=== PATIENT | male | born 1935 ===

== ENCOUNTER 2018-02-13 13:36 | Inpatient (IN) | payer MEDICARE, OTHER ==
[2018-02-13 13:37] VITALS: PULSE 68; BMI 28.8
--- NOTE | 2018-02-13 13:55 | C.PDOC ---
History Of Present Illness 83 M with PMHx of CAD, chronic Afib, renal failure in dialysis presents to the ED [facility] from [facility] complaining of dizziness and lightheadedness episode while he was in dialysis prior to arrival. As per patient, his vision became black and then white but it is resolved now. He denies any physical complaints in the ED. PMD: Dr. Rock Time Seen by Provider: 02/13/18 13:42 Chief Complaint (Nursing): Dizziness/Lightheaded History Per: Patient History/Exam Limitations: no limitations Onset/Duration Of Symptoms: Hrs Current Symptoms Are (Timing): Still Present Past Medical History Vital Signs: Last Vital Signs Temp 97.4 F L 02/13/18 13:41 Pulse 78 02/13/18 13:41 Resp 15 02/13/18 13:41 BP 88/41 L 02/13/18 13:41 Pulse Ox 94 L 02/13/18 13:41 - Medical History PMH: Anxiety, Arthritis, Bronchitis, CAD, Cardia Arrhythmia (AFIB), CHF, Diabetes, Gall Bladder Disease (CHOLECYSTECTOMY), HTN, Hypercholesterolemia, Peripheral Edema (BLE), Pneumonia, Chronic Kidney Disease Denies: Depression Surgical History: CABG, Cholecystectomy (GB Sx: ? removal), Pacemaker (11/30/14) - [facility] Procedures (01/13/18) BED MOBILITY TREATMENT (06/03/16) DRESSING TECHNIQUES TREATMENT USING ASSIST EQUIPMENT (06/03/16) EXERCISE TREATMENT OF MUSCULOSK LOW BACK/LE USING OTH EQUIP (06/03/16) FLUOROSCOPY OF LEFT HEART USING OTHER CONTRAST (05/29/16) FLUOROSCOPY OF MULTIPLE CORONARY ARTERIES USING OTH CONTRAST (05/29/16) GAIT TRAINING/AMBULAT TREATMENT USING ASSIST EQUIPMENT (10/15/17) GROOMING/PERSONAL HYGIENE TREATMENT USING ASSIST EQUIPMENT (06/03/16) HOME MANAGEMENT TREATMENT USING ASSIST EQUIPMENT (04/29/15) INCISION OF PENIS (07/19/14) INSERT INFUSION DEV IN R INT JUGULAR VEIN, PERC (01/13/18) INTRODUCE OF OTH THERAP SUBST INTO RESP TRACT, VIA OPENING (04/26/15) INTRODUCE OF OXAZOLIDINONES INTO PERIPH VEIN, PERC APPROACH (04/26/15) MEASURE OF CARDIAC SAMPL & PRESSURE, L HEART, PERC APPROACH (05/29/16) OCCUPATIONAL THERAPY (07/24/14) PHYSICAL THERAPY NEC (07/24/14) SERUM TRANSFUSION NEC (07/11/12) THERAPEUTIC EXERCISE TREATMENT OF MUSCULOSK WHOLE (10/15/17) TRANSFER TRAINING TREATMENT (06/03/16) ULTRASONOGRAPHY OF RIGHT JUGULAR VEINS, GUIDANCE (01/13/18) Family History: States: No Known Family Hx - Social History Hx Tobacco Use: Yes (QUIT) Hx Alcohol Use: No Hx Substance Use: No - Immunization History Hx Tetanus Toxoid Vaccination: No Hx Influenza Vaccination: No Hx Pneumococcal Vaccination: No Review Of Systems Except As Marked, All Systems Reviewed And Found Negative. Cardiovascular: Positive for: Light Headedness. Negative for: Chest Pain Gastrointestinal: Negative for: Abdominal Pain Neurological: Positive for: Dizziness Physical Exam - Physical Exam Additional Physical Exam Comments: Gen: VS reviewed, alert, well developed, well nourished, nontoxic, mild distress Eye: EOMI, PERRL Neck: no JVD, supple, no adenopathy CV: regular rate, irregularly irregular rhythm, no rubs,no murmur, S1, S2. Pulm: no distress, clear to auscultation, no wheeze, no rhonchi, breath sounds equal, no rales. catheter noted to the right chest wall Abd: soft, nontender, no guarding, no rebound, no rigidity Ext: Pedal edema to bilateral extremities Skin: good color, no rash, no cyanosis Psych: responds appropriately to questions, normal affect Neuro: oriented x3, CN2-12 intact grossly, motor intact, sensation intact ED Course And Treatment - Laboratory Results Result Diagrams: 02/13/18 14:07 02/14/18 06:52 ECG: Interpreted By Me (atrial fibrillation at 78 bpm, nonspecific intraventricular conduction delay, artifact, pvc's, nonspecific t wave abn) O2 Sat by Pulse Oximetry: 94 (RA) Pulse Ox Interpretation: Abnormal - Other Rad CXR X-Ray: Viewed By Me, Read By Radiologist Interpretation: IMPRESSION: Severe cardiomegaly, mild pulmonary venous congestion and small left pleural effusion. No evidence for pneumonia. Medical Decision Making Medical Decision Makinp: received call from patient's site supervisor, could not make out name, states that the patient got full tx of HD, sent patient to the ED for severe hyp otension, blood pressure typically in the 90-100 SBP, was given dose of 1g vanco and 80mg gentamicin prior to arrival. the number to the site supervisor is [phone]. Dr. Terence Mcnamara 334p: admit accepted by dr. matta, admit to [facility], patient to be admitted for transient hypotension, rule out sepsis/bacteremia Disposition Discussed With : Rebecca Matta - Disposition Disposition: HOSPITALIZED Disposition Time: 15:38 Condition: STABLE - Clinical Impression Clinical Impression: Hypotension - Scribe Statement The provider has reviewed the documentation as recorded by the Scribe Anahi Esteban All medical record entries made by the Scribe were at my direction and personally dictated by me. I have reviewed the chart and agree that the record accurately reflects my personal performance of the history, physical exam, medical decision making, and the department course for this patient. I have also personally directed, reviewed, and agree with the discharge instructions and disposition.
[2018-02-13] MEDS ORDERED: Sodium Chloride 0.9% 500 ML IV ONE ×2 (14:02→14:22)
[2018-02-13 14:11] LABS: EOS # 0.1 K/uL (0.0-0.7); HEMOGLOBIN 9.1 g/dL (12.0-18.0); LYMPH # 0.4 K/uL (1.0-4.3); MEAN CORPUSCULAR HEMOGLOBIN 36.6 pg (27.0-31.0); MEAN PLATELET VOLUME 8.1 fL (7.2-11.7); MONO # 0.8 K/uL (0.0-0.8); NEUT # 4.4 K/uL (1.8-7.0); RBC 2.47 Mil/uL (4.40-5.90)
[2018-02-13 14:13] LABS: VENOUS BLOOD GAS BASE EXCESS 2.7 mmol/L (0.0-2.0); VENOUS BLOOD GAS PCO2 50 mmHg (40-60); VENOUS BLOOD GAS PO2 21 mm/Hg (30-55); VENOUS BLOOD PH 7.37 (7.32-7.43)
[2018-02-13 14:14] LABS: BASO % 0.7 % (0.0-2.0); EOS % 2.3 % (0.0-4.0); LYMPH % 6.2 % (20.0-40.0); MEAN CELL VOLUME 106.7 fL (80.0-94.0); MEAN CORPUSCULAR HGB CONC 34.3 g/dL (33.0-37.0); MONO % 14.7 % (0.0-10.0); NEUT % 76.1 % (50.0-75.0); NRBC % 0.1 % (0.0-2.0); RED CELL DISTRIBUTION WIDTH 18.6 % (11.5-14.5); WHITE BLOOD COUNT 5.7 K/uL (4.8-10.8)
[2018-02-13 14:19] LABS: INR 2.2; PROTHROMBIN TIME 23.8 SECONDS (9.7-12.2)
[2018-02-13 14:23] LABS: ALB/GLOB RATIO 0.9 (1.0-2.1); ALBUMIN 2.8 g/dL (3.5-5.0); CALCIUM 7.7 mg/dl (8.6-10.4); PLATELET COUNT 25 K/uL (130-400)
[2018-02-13 14:34] LABS: TROPONIN I 0.055 ng/mL (0.00-0.120)
--- NOTE | 2018-02-13 14:36 | RAD ---
Date of service: 02/13/2018 HISTORY: pnuemonia COMPARISON: No prior. FINDINGS: Right-sided dialysis catheter terminates in the right atrium. LUNGS: The lungs are well inflated and clear. There is mild pulmonary venous congestion. PLEURA: Small left pleural effusion. No right pleural effusion or pneumothorax. CARDIOVASCULAR: Severe cardiomegaly and prominent central vasculature. There is a left-sided unipolar permanent pacing device. There are aortic atherosclerotic calcifications present. OSSEOUS STRUCTURES: Within normal limits for the patient's age. VISUALIZED UPPER ABDOMEN: Normal. OTHER FINDINGS: None. IMPRESSION: Severe cardiomegaly, mild pulmonary venous congestion and small left pleural effusion. No evidence for pneumonia.
[2018-02-13 15:15] LABS: BASOPHIL 1 % (0-2); EOSINOPHIL 1 % (0-4); LYMPHOCYTE 6 % (20-40); MONOCYTE 12 % (0-10); NEUTROPHIL 80 % (50-75); TOTAL CELLS COUNTED 100
[2018-02-13 15:16] LABS: ANISOCYTOSIS SLIGHT; PLATELET ESTIMATE MARKEDLY DECREASED (NORMAL); POIKILOCYTOSIS SLIGHT
[2018-02-13 15:17] LABS: BURR CELLS SLIGHT; HYPOCHROMIC SLIGHT; OVALOCYTES SLIGHT
[2018-02-13 15:20] LABS: LARGE PLATELETS PRESENT
[2018-02-13] MEDS: (Novolog) Insulin Aspart, Recombinant 100 u/ml 10 ml vial SC SCH (21:48)
[2018-02-13 23:00] LABS: SQUAMOUS EPITHIAL < 1 /hpf (0-5); URINE BACTERIA RARE (<OCC); URINE BILIRUBIN NEGATIVE (NEGATIVE); URINE BLOOD NEGATIVE (NEGATIVE); URINE CLARITY Hazy (Clear); URINE COLOR Amber (YELLOW); URINE GLUCOSE (UA) NORMAL (Normal); URINE LEUKOCYTE ESTERASE NEG Leu/uL (Negative); URINE PROTEIN NEGATIVE (NEGATIVE)
[2018-02-14 07:08] LABS: INR 2.6; PROTHROMBIN TIME 28.6 SECONDS (9.7-12.2)
[2018-02-14 07:34] LABS: ALB/GLOB RATIO 0.9 (1.0-2.1); ALBUMIN 2.8 g/dL (3.5-5.0); CALCIUM 7.9 mg/dl (8.6-10.4)
--- NOTE | 2018-02-14 11:12 | CARD ---
APPROVED REPORT Date of service: 02/13/2018 EKG Measurement Heart [id number] <Conclusion> Atrial fibrillation with a competing junctional pacemaker with premature ventricular or aberrantly conducted complexes Nonspecific intraventricular conduction delay Nonspecific ST and T wave abnormality Abnormal ECG
[2018-02-14] MEDS: (Novolog) Insulin Aspart, Recombinant 100 u/ml 10 ml vial SC SCH ×4 (11:36→22:00)
--- NOTE | 2018-02-14 12:41 | CARD ---
APPROVED REPORT Date of service: 02/14/2018 EXAM: Two-dimensional and M-mode echocardiogram with Doppler and color Doppler. Other Information Quality : Rhythm : Atrial Fibrillation INDICATION Dizziness and Vertigo Dyspnea Chest Pain Congestive Heart Failure Surgery/Intervention ICD/Pacemaker: RISK FACTORS Hypertension Hyperlipidemia Diabetes 2D DIMENSIONS IVSd1.1 (0.7-1.1cm)Aortic Root (2D)2.5 (2.0-3.7cm) LVDd5.6 (3.9-5.9cm)PWd1.1 (0.7-1.1cm) LA [id number] (18-58mL)LVDs4.8 (2.5-4.0cm) FS (%) 14.4 %LVEF (%)36.0 (>50%) IVC0.00 cm M-Mode DIMENSIONS RVDd1.64 (2.1-3.2cm)Left Atrium (MM)6.68 (2.5-4.0cm) IVSd0.66 (0.7-1.1cm)Aortic Root2.38 (2.2-3.7cm) LVDd6.60 (4.0-5.6cm)Aortic Cusp Exc.1.76 (1.5-2.0cm) PWd0.82 (0.7-1.1cm)FS (%) 17 % LVDs5.47 (2.0-3.8cm)LVEF (%)35 (>50%) Aortic Valve AI P 1/2 [id number] Mitral Valve MV E Bvcipwni864.3cm/sMV A Eyxxpxkk81.0cm/sE/A ratio2.8 MPJO011.76 cm/s TDI Lateral E' Peak V16.10cm/sMedial E' Peak V11.51cm/sE/Lateral E'7.0 E/Medial E'9.8 Tricuspid Valve TR Peak Ezhwzkhl004si/sTR Peak Gr.[id number] LEFT VENTRICLE The Left Ventricle is severely dilated. There is normal left ventricular wall thickness. The Ejection Fraction is 35-40%. There is global hypokinesis of the left ventricle. Transmitral Doppler flow pattern is Grade III-reversible restrictive diastolic dysfunction. markedly increased la volume index, RIGHT VENTRICLE The right ventricle is normal size. The right ventricular systolic function is normal. ATRIA The left atrium is severely dilated. The right atrium is moderately dilated. AORTIC VALVE The aortic valve is mildly sclerotic. The aortic valve is trileaflet. There is mild aortic regurgitation. MITRAL VALVE The mitral valve is thickened but opens well. Mitral regurgitation is moderate. TRICUSPID VALVE The tricuspid valve is normal in structure. There is moderate to severe tricuspid regurgitation. Right ventricular systolic pressure is estimated at 60 mmHg. There is moderate-severe pulmonary hypertension. PULMONIC VALVE The pulmonary valve is normal in structure. There is mild pulmonic valvular regurgitation. GREAT VESSELS The aortic root is normal size. The aortic root displays mild sclerocalcific changes of the aortic root. Dilated IVC with poor inspiration collapse is consistent with elevated right atrial pressure. PERICARDIAL EFFUSION There is no pericardial effusion. <Conclusion> The Left Ventricle is severely dilated. The Ejection Fraction is 35-40%. There is global hypokinesis of the left ventricle. Transmitral Doppler flow pattern is Grade III-reversible restrictive diastolic dysfunction. markedly increased la volume index, The left atrium is severely dilated. The right atrium is moderately dilated. There is mild aortic regurgitation. Mitral regurgitation is moderate. There is moderate to severe tricuspid regurgitation. Right ventricular systolic pressure is estimated at 60 mmHg. There is moderate-severe pulmonary hypertension. Dilated IVC with poor inspiration collapse is consistent with elevated right atrial pressure. There is no pericardial effusion.
--- NOTE | 2018-02-14 17:35 | CP.PCM.HP ---
History of Present Illness - History of Present Illness History of Present Illness: pt admited for feeling weeke light headed get worse if stand had dialysis and got low bp Present on Admission - Present on Admission Any Indicators Present on Admission: No Review of Systems - Review of Systems Systems not reviewed;Unavailable: Unstable Vital Signs - Constitutional Constitutional: Fatigue, Malaise - EENT Eyes: As Per HPI Ears: As Per HPI Nose/Mouth/Throat: As Per HPI - Cardiovascular Cardiovascular: Other (neare syncope) Additional comments: neare syncope - Respiratory Respiratory: As Per HPI - Gastrointestinal Gastrointestinal: As Per HPI - Genitourinary Genitourinary: As Per HPI Additional comments: esrf on dialysis - Musculoskeletal Musculoskeletal: As Per HPI - Integumentary Integumentary: As Per HPI - Neurological Neurological: As Per HPI - Psychiatric Psychiatric: As Per HPI - Endocrine Endocrine: As Per HPI - Hematologic/Lymphatic Hematologic: As Per HPI Past Patient History - Infectious Disease Hx of Infectious Diseases: None - Tetanus Immunizations Tetanus Immunization: Unknown - Past Medical History & Family History Past Medical History?: Yes - Past Social History Smoking Status: Never Smoked - CARDIAC Hx Cardiac Disorders: Yes (CAD, A-fib,) Hx Congestive Heart Failure: Yes Hx Hypercholesterolemia: Yes Hx Hypertension: Yes - PULMONARY Hx Bronchitis: Yes Hx Pneumonia: Yes - NEUROLOGICAL Hx Neurological Disorder: (DENIES HISTORY) - HEENT Hx HEENT Problems: Yes Hx Cataracts: Yes (Left) Hx Glaucoma: Yes (Right) - RENAL Hx Chronic Kidney Disease: Yes - ENDOCRINE/METABOLIC Hx Diabetes Mellitus Type 2: Yes - HEMATOLOGICAL/ONCOLOGICAL Hx Blood Disorders: Yes - INTEGUMENTARY Hx Dermatological Problems: (DENIES HISTORY) - MUSCULOSKELETAL/RHEUMATOLOGICAL Hx Arthritis: Yes - GASTROINTESTINAL Hx Gall Bladder Disease: Yes (CHOLECYSTECTOMY) - GENITOURINARY/GYNECOLOGICAL Hx Genitourinary Disorders: No - PSYCHIATRIC Hx Anxiety: Yes Hx Depression: No Hx Substance Use: No - SURGICAL HISTORY Hx Cholecystectomy: Yes (GB Sx: ? removal) Hx Coronary Artery Bypass Graft: Yes - ANESTHESIA Hx Anesthesia: Yes Hx Anesthesia Reactions: Yes Hx Malignant Hyperthermia: No Meds Allergies/Adverse Reactions: Allergies Allergy/AdvReac Type Severity Reaction Status Date / Time aspirin Allergy RASH Verified 10/24/17 06:17 Latex, Natural Rubber Allergy RASH Verified 10/24/17 06:17 Penicillins Allergy ANAPHYLAXIS Verified 08/29/18 06:17 Physical Exam - Constitutional Appears: Non-toxic, In Acute Distress - Head Exam Head Exam: ATRAUMATIC - Eye Exam Eye Exam: Normal appearance Pupil Exam: NORMAL ACCOMODATION - ENT Exam ENT Exam: Normal Exam - Neck Exam Neck exam: Positive for: Full Rom - Respiratory Exam Respiratory Exam: Decreased Breath Sounds - Cardiovascular Exam Cardiovascular Exam: REGULAR RHYTHM - GI/Abdominal Exam GI & Abdominal Exam: Normal Bowel Sounds - Rectal Exam Rectal Exam: Deferred - Exam Exam: NORMAL INSPECTION - Extremities Exam Extremities exam: Positive for: normal inspection - Back Exam Back exam: NORMAL INSPECTION - Neurological Exam Neurological exam: Oriented x3 - Psychiatric Exam Psychiatric exam: Normal Affect - Skin Skin Exam: Normal Color Results - Vital Signs Recent Vital Signs: Last Vital Signs Temp 97.6 F 02/14/18 15:00 Pulse 70 02/14/18 15:00 Resp 20 02/14/18 15:00 BP 90/45 L 02/14/18 15:00 Pulse Ox 100 02/14/18 15:00 - Labs Result Diagrams: 02/13/18 14:07 02/14/18 06:52 Labs: Laboratory Results - last 24 hr 02/13/18 02/13/18 02/13/18 18:04 21:26 21:44 PT INR Sodium Potassium Chloride Carbon Dioxide Anion Gap BUN Creatinine Est GFR ( Amer) Est GFR (Non-Af Amer) POC Glucose (mg/dL) 186 H 112 H Random Glucose Calcium Phosphorus Magnesium Total Bilirubin AST ALT Alkaline Phosphatase NT-Pro-B Natriuret Pep Total Protein Albumin Globulin Albumin/Globulin Ratio Urine Color [place] Urine Clarity Hazy Urine pH 5.0 Ur Specific [place] 1.013 Urine Protein Negative Urine Glucose (UA) Normal Urine Ketones Negative Urine Blood Negative Urine Nitrate Negative Urine Bilirubin Negative Urine Urobilinogen 2.0 Ur Leukocyte Esterase Neg Urine WBC (Auto) 3 Urine RBC (Auto) 4 H Ur Squamous Epith Cells < 1 Urine Bacteria Rare Stool Occult Blood 02/13/18 02/14/18 02/14/18 22:07 06:52 06:52 PT 28.6 H INR 2.6 Sodium 131 L Potassium 4.0 Chloride 95 L Carbon Dioxide 27 Anion Gap 13 BUN 79 H Creatinine 2.8 H Est GFR ( Amer) 26 Est GFR (Non-Af Amer) 22 POC Glucose (mg/dL) Random Glucose 82 Calcium 7.9 L Phosphorus 5.1 H Magnesium 1.8 Total Bilirubin 1.2 AST 46 ALT 35 Alkaline Phosphatase 190 H NT-Pro-B Natriuret Pep 2950 H Total Protein 6.0 L Albumin 2.8 L Globulin 3.2 Albumin/Globulin Ratio 0.9 L Urine Color Urine Clarity Urine pH Ur Specific [place] Urine Protein Urine Glucose (UA) Urine Ketones Urine Blood Urine Nitrate Urine Bilirubin Urine Urobilinogen Ur Leukocyte Esterase Urine WBC (Auto) Urine RBC (Auto) Ur Squamous Epith Cells Urine Bacteria Stool Occult Blood Negative 02/14/18 02/14/18 12:04 17:00 PT INR Sodium Potassium Chloride Carbon Dioxide Anion Gap BUN Creatinine Est GFR ( Amer) Est GFR (Non-Af Amer) POC Glucose (mg/dL) 83 106 Random Glucose Calcium Phosphorus Magnesium Total Bilirubin AST ALT Alkaline Phosphatase NT-Pro-B Natriuret Pep Total Protein Albumin Globulin Albumin/Globulin Ratio Urine Color Urine Clarity Urine pH Ur Specific [place] Urine Protein Urine Glucose (UA) Urine Ketones Urine Blood Urine Nitrate Urine Bilirubin Urine Urobilinogen Ur Leukocyte Esterase Urine WBC (Auto) Urine RBC (Auto) Ur Squamous Epith Cells Urine Bacteria Stool Occult Blood Assessment & Plan - Assessment and Plan (Free Text) Assessment: gabi neare syncope hypotension esrf Plan: as ordered - Date & Time Date: 02/14/18 Time: 17:37
[2018-02-14] MEDS ORDERED: Potassium Chloride 20 mEq ER Tab PO ONE (18:00)
--- NOTE | 2018-02-14 18:47 | CP.PCM.CON ---
History of Present Illness - History of Present Illness History of Present Illness: 83 yo M w/ pmh of htn, dm, afib on coumadin, CHF w/ biventricular failure (per previous echo, s/p AICD), and BRANDI on CKD IIIB/IV, sent by our outpatient service to ED for severe hypotension on HD yesterday, nephrology being consulted for renal insufficiency; Patient is known to us since last month when he presented to [facility] with acute severely decompensated systolic CHF and acute renal failure; patient was aggressively diuresed before being initiated on HD and discharged to rehab facility while being continued on outpatient HD; Patient has had relatively stable weights, with target weight being 81 kg; SBP has been in 90's to low 100's and tolerating 1-1.5L fluid removal on HD; however, yesterday, patient started HD with SBP > 100 but quickly dropped to 60's and without significant improvement despite getting ~1L IVF bolus; patient also got blood cultures on HD and empirically given 1g vanco and 80 mg genta micin; patient did report having some diarrhea in the previous 1-2 days and had some feeling of dizziness/pre-syncope before HD yesterday; he otherwise had been eating well, denies any vomiting; he was treated for UTI last week; Review of Systems - Constitutional Constitutional: absent: Anorexia, Chills, Fever - EENT Eyes: Change in Vision Nose/Mouth/Throat: absent: Dysphagia - Cardiovascular Cardiovascular: Lightheadedness. absent: Dyspnea - Respiratory Respiratory: absent: Dyspnea - Gastrointestinal Gastrointestinal: As Per HPI - Genitourinary Genitourinary: absent: Dysuria - Musculoskeletal Musculoskeletal: absent: Arthralgias, Back Pain - Neurological Neurological: As Per HPI - Psychiatric Additional comments: slow to respond - Hematologic/Lymphatic Hematologic: Easy Bruising Past Patient History - Infectious Disease Hx of Infectious Diseases: None - Tetanus Immunizations Tetanus Immunization: Unknown - Past Medical History & Family History Past Medical History?: Yes - Past Social History Smoking Status: Never Smoked - CARDIAC Hx Cardiac Disorders: Yes (CAD, A-fib,) Hx Congestive Heart Failure: Yes Hx Hypercholesterolemia: Yes Hx Hypertension: Yes - PULMONARY Hx Bronchitis: Yes Hx Pneumonia: Yes - NEUROLOGICAL Hx Neurological Disorder: (DENIES HISTORY) - HEENT Hx HEENT Problems: Yes Hx Cataracts: Yes (Left) Hx Glaucoma: Yes (Right) - RENAL Hx Chronic Kidney Disease: Yes - ENDOCRINE/METABOLIC Hx Diabetes Mellitus Type 2: Yes - HEMATOLOGICAL/ONCOLOGICAL Hx Blood Disorders: Yes - INTEGUMENTARY Hx Dermatological Problems: (DENIES HISTORY) - MUSCULOSKELETAL/RHEUMATOLOGICAL Hx Arthritis: Yes - GASTROINTESTINAL Hx Gall Bladder Disease: Yes (CHOLECYSTECTOMY) - GENITOURINARY/GYNECOLOGICAL Hx Genitourinary Disorders: No - PSYCHIATRIC Hx Anxiety: Yes Hx Depression: No Hx Substance Use: No - SURGICAL HISTORY Hx Cholecystectomy: Yes (GB Sx: ? removal) Hx Coronary Artery Bypass Graft: Yes - ANESTHESIA Hx Anesthesia: Yes Hx Anesthesia Reactions: Yes Hx Malignant Hyperthermia: No Meds Allergies/Adverse Reactions: Allergies Allergy/AdvReac Type Severity Reaction Status Date / Time aspirin Allergy RASH Verified 10/24/17 06:17 Latex, Natural Rubber Allergy RASH Verified 10/24/17 06:17 Penicillins Allergy ANAPHYLAXIS Verified 10/24/17 06:17 - Medications Medications: Current Medications Acetaminophen (Tylenol 325mg Tab) 650 mg PO Q6 PRN PRN Reason: Fever >100.4 F and Pain (4-7) Bumetanide (Bumex) 2 mg PO DAILY [facility] Insulin Aspart (Novolog) 0 unit SC [facility]; Protocol Last Admin: 02/14/18 17:02 Dose: Not Given Lactulose (Enulose) 20 gm PO DAILY [facility] Last Admin: 02/14/18 12:57 Dose: 20 gm Moxifloxacin HCl (Avelox) 400 mg PO DAILY [facility]; Protocol Last Admin: 02/14/18 12:58 Dose: 400 mg Risperidone (Risperdal Tab) 0.25 mg PO [facility] Last Admin: 02/13/18 21:45 Dose: 0.25 mg Physical Exam - Constitutional Appears: Non-toxic, No Acute Distress - Eye Exam Eye Exam: Normal appearance. absent: Scleral icterus - ENT Exam ENT Exam: Mucous Membranes Moist - Respiratory Exam Respiratory Exam: Clear to Auscultation Bilateral. absent: Respiratory Distress - Cardiovascular Exam Cardiovascular Exam: Irregular Rhythm. absent: Gallop, Rubs - GI/Abdominal Exam GI & Abdominal Exam: Soft. absent: Distended, Tenderness - Exam Exam: absent: Bladder Distension Additional comments: no suprapubic tenderness - Neurological Exam Neurological exam: Alert Additional comments: no overt tremor - Psychiatric Exam Psychiatric exam: Normal Affect, Normal Mood - Skin Skin Exam: Normal Color, Warm Results - Vital Signs Recent Vital Signs: Last Vital Signs Temp 97.6 F 02/14/18 15:00 Pulse 70 02/14/18 15:00 Resp 20 02/14/18 15:00 BP 90/45 L 02/14/18 15:00 Pulse Ox 100 02/14/18 15:00 - Labs Result Diagrams: 02/13/18 14:07 02/14/18 06:52 Labs: Laboratory Results - last 24 hr 02/13/18 02/13/18 02/13/18 21:26 21:44 22:07 PT INR Sodium Potassium Chloride Carbon Dioxide Anion Gap BUN Creatinine Est GFR ( Amer) Est GFR (Non-Af Amer) POC Glucose (mg/dL) 112 H Random Glucose Calcium Phosphorus Magnesium Total Bilirubin AST ALT Alkaline Phosphatase NT-Pro-B Natriuret Pep Total Protein Albumin Globulin Albumin/Globulin Ratio Urine Color [place] Urine Clarity Hazy Urine pH 5.0 Ur Specific [place] 1.013 Urine Protein Negative Urine Glucose (UA) Normal Urine Ketones Negative Urine Blood Negative Urine Nitrate Negative Urine Bilirubin Negative Urine Urobilinogen 2.0 Ur Leukocyte Esterase Neg Urine WBC (Auto) 3 Urine RBC (Auto) 4 H Ur Squamous Epith Cells < 1 Urine Bacteria Rare Stool Occult Blood Negative 02/14/18 02/14/18 02/14/18 06:52 06:52 12:04 PT 28.6 H INR 2.6 Sodium 131 L Potassium 4.0 Chloride 95 L Carbon Dioxide 27 Anion Gap 13 BUN 79 H Creatinine 2.8 H Est GFR ( Amer) 26 Est GFR (Non-Af Amer) 22 POC Glucose (mg/dL) 83 Random Glucose 82 Calcium 7.9 L Phosphorus 5.1 H Magnesium 1.8 Total Bilirubin 1.2 AST 46 ALT 35 Alkaline Phosphatase 190 H NT-Pro-B Natriuret Pep 2950 H Total Protein 6.0 L Albumin 2.8 L Globulin 3.2 Albumin/Globulin Ratio 0.9 L Urine Color Urine Clarity Urine pH Ur Specific [place] Urine Protein Urine Glucose (UA) Urine Ketones Urine Blood Urine Nitrate Urine Bilirubin Urine Urobilinogen Ur Leukocyte Esterase Urine WBC (Auto) Urine RBC (Auto) Ur Squamous Epith Cells Urine Bacteria Stool Occult Blood 02/14/18 17:00 PT INR Sodium Potassium Chloride Carbon Dioxide Anion Gap BUN Creatinine Est GFR ( Amer) Est GFR (Non-Af Amer) POC Glucose (mg/dL) 106 Random Glucose Calcium Phosphorus Magnesium Total Bilirubin AST ALT Alkaline Phosphatase NT-Pro-B Natriuret Pep Total Protein Albumin Globulin Albumin/Globulin Ratio Urine Color Urine Clarity Urine pH Ur Specific [place] Urine Protein Urine Glucose (UA) Urine Ketones Urine Blood Urine Nitrate Urine Bilirubin Urine Urobilinogen Ur Leukocyte Esterase Urine WBC (Auto) Urine RBC (Auto) Ur Squamous Epith Cells Urine Bacteria Stool Occult Blood - Imaging and Cardiology Chest x-ray Status: Image reviewed by me Additional comment: some vascular congestion Assessment & Plan (1) Hypotension Assessment and Plan: Acutely hypotensive on HD yesterday, etiology unclear; no other signs of sepsis but treated empirically with antibiotics/IVF and with significant improvement in BP this morning; cardiogenic shock a possibility although troponin negative and with warm extremities; -f/u culture results; -checking cortisol level, procalcitonin; Status: Acute (2) Acute renal failure Assessment and Plan: BRANDI on advanced CKD; consistent with cardiorenal etiology; initiated on HD last month to control volume status and decrease venous congestion with hopes of possibly improving renal function (hence we did not yet deem patient as ESRD); stable electrolyte status; -next HD for tomorrow; aiming to remove 1-1.5L; -avoid nephrotoxic agents; Status: Acute (3) CHF (congestive heart failure) Assessment and Plan: With biventricular dysfunction per previous echo; goal is to keep euvolemic with both diuretics and ultrafiltration on HD; was on bumex 2 mg bid at rehab, will continue same once BP stable; will f/u with cardio for further recs; Status: Acute (4) Thrombocytopenia Assessment and Plan: Progressively worsening; recommend hematology eval; Status: Acute (5) Anemia Assessment and Plan: Hgb stable but below goal of 10-11 g for CKD; will dose EPO on HD tomorrow; Status: Chronic
--- NOTE | 2018-02-14 19:53 | CP.PCM.CON ---
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 Primary Data Software Engineer: Dr. De León Review of Systems - Constitutional Constitutional: absent: Anorexia, Chills, Fever - EENT Eyes: Change in Vision Nose/Mouth/Throat: absent: Dysphagia - Cardiovascular Cardiovascular: Lightheadedness. absent: Dyspnea - Respiratory Respiratory: absent: Dyspnea - Gastrointestinal Gastrointestinal: As Per HPI - Genitourinary Genitourinary: absent: Dysuria - Musculoskeletal Musculoskeletal: absent: Arthralgias, Back Pain - Neurological Neurological: As Per HPI - Psychiatric Additional comments: slow to respond - Hematologic/Lymphatic Hematologic: Easy Bruising Physical Exam - Constitutional Appears: Non-toxic, No Acute Distress - Eye Exam Eye Exam: Normal appearance. absent: Scleral icterus - ENT Exam ENT Exam: Mucous Membranes Moist - Respiratory Exam Respiratory Exam: Clear to Auscultation Bilateral. absent: Respiratory Distress - Cardiovascular Exam Cardiovascular Exam: Irregular Rhythm. absent: Gallop, Rubs - GI/Abdominal Exam GI & Abdominal Exam: Soft. absent: Distended, Tenderness - Exam Exam: absent: Bladder Distension Additional comments: no suprapubic tenderness - Neurological Exam Neurological exam: Alert Additional comments: no overt tremor - Psychiatric Exam Psychiatric exam: Normal Affect, Normal Mood - Skin Skin Exam: Normal Color, Warm Assessment & Plan (1) Hypotension Assessment and Plan: Most likely hypovalemia ECHO shows improved EF of 35-40% and severe Pulm HTN Status: Acute (2) Acute renal failure Assessment and Plan: BRANDI on advanced CKD; consistent with cardiorenal etiology; initiated on HD last month to control volume status and decrease venous congestion with hopes of possibly improving renal function (hence we did not yet deem patient as ESRD); stable electrolyte status; -next HD for tomorrow; aiming to remove 1-1.5L; -avoid nephrotoxic agents; Status: Acute (3) CHF (congestive heart failure) Assessment and Plan: With biventricular dysfunction per previous echo; goal is to keep euvolemic with both diuretics and ultrafiltration on HD; was on bumex 2 mg bid at rehab, will continue same once BP stable; will f/u with cardio for further recs; Status: Acute (4) Thrombocytopenia Assessment and Plan: Progressively worsening; recommend hematology eval; Status: Acute (5) Anemia Assessment and Plan: Hgb stable but below goal of 10-11 g for CKD; will dose EPO on HD tomorrow; Status: Chronic Past Patient History - Infectious Disease Hx of Infectious Diseases: None - Tetanus Immunizations Tetanus Immunization: Unknown - Past Medical History & Family History Past Medical History?: Yes - Past Social History Smoking Status: Never Smoked - CARDIAC Hx Cardiac Disorders: Yes (CAD, A-fib,) Hx Congestive Heart Failure: Yes Hx Hypercholesterolemia: Yes Hx Hypertension: Yes - PULMONARY Hx Bronchitis: Yes Hx Pneumonia: Yes - NEUROLOGICAL Hx Neurological Disorder: (DENIES HISTORY) - HEENT Hx HEENT Problems: Yes Hx Cataracts: Yes (Left) Hx Glaucoma: Yes (Right) - RENAL Hx Chronic Kidney Disease: Yes - ENDOCRINE/METABOLIC Hx Diabetes Mellitus Type 2: Yes - HEMATOLOGICAL/ONCOLOGICAL Hx Blood Disorders: Yes - INTEGUMENTARY Hx Dermatological Problems: (DENIES HISTORY) - MUSCULOSKELETAL/RHEUMATOLOGICAL Hx Arthritis: Yes - GASTROINTESTINAL Hx Gall Bladder Disease: Yes (CHOLECYSTECTOMY) - GENITOURINARY/GYNECOLOGICAL Hx Genitourinary Disorders: No - PSYCHIATRIC Hx Anxiety: Yes Hx Depression: No Hx Substance Use: No - SURGICAL HISTORY Hx Cholecystectomy: Yes (GB Sx: ? removal) Hx Coronary Artery Bypass Graft: Yes - ANESTHESIA Hx Anesthesia: Yes Hx Anesthesia Reactions: Yes Hx Malignant Hyperthermia: No Meds Allergies/Adverse Reactions: Allergies Allergy/AdvReac Type Severity Reaction Status Date / Time aspirin Allergy RASH Verified 10/24/17 06:17 Latex, Natural Rubber Allergy RASH Verified 10/24/17 06:17 Penicillins Allergy ANAPHYLAXIS Verified 10/24/17 06:17 - Medications Medications: Current Medications Acetaminophen (Tylenol 325mg Tab) 650 mg PO Q6 PRN PRN Reason: Fever >100.4 F and Pain (4-7) Bumetanide (Bumex) 2 mg PO DAILY [facility] Last Admin: 02/14/18 18:45 Dose: Not Given Insulin Aspart (Novolog) 0 unit SC [facility]; Protocol Last Admin: 02/14/18 17:02 Dose: Not Given Lactulose (Enulose) 20 gm PO DAILY [facility] Last Admin: 02/14/18 12:57 Dose: 20 gm Moxifloxacin HCl (Avelox) 400 mg PO DAILY [facility]; Protocol Last Admin: 02/14/18 12:58 Dose: 400 mg Risperidone (Risperdal Tab) 0.25 mg PO [facility] Last Admin: 02/13/18 21:45 Dose: 0.25 mg Results - Vital Signs Recent Vital Signs: Last Vital Signs Temp 97.6 F 02/14/18 15:00 Pulse 65 02/14/18 18:43 Resp 20 02/14/18 15:00 BP 76/44 L 02/14/18 18:43 Pulse Ox 100 02/14/18 15:00 - Labs Result Diagrams: 02/13/18 14:07 02/14/18 06:52 Labs: Laboratory Results - last 24 hr 02/13/18 02/13/18 02/13/18 21:26 21:44 22:07 PT INR Sodium Potassium Chloride Carbon Dioxide Anion Gap BUN Creatinine Est GFR ( Amer) Est GFR (Non-Af Amer) POC Glucose (mg/dL) 112 H Random Glucose Calcium Phosphorus Magnesium Total Bilirubin AST ALT Alkaline Phosphatase NT-Pro-B Natriuret Pep Total Protein Albumin Globulin Albumin/Globulin Ratio Urine Color [place] Urine Clarity Hazy Urine pH 5.0 Ur Specific [place] 1.013 Urine Protein Negative Urine Glucose (UA) Normal Urine Ketones Negative Urine Blood Negative Urine Nitrate Negative Urine Bilirubin Negative Urine Urobilinogen 2.0 Ur Leukocyte Esterase Neg Urine WBC (Auto) 3 Urine RBC (Auto) 4 H Ur Squamous Epith Cells < 1 Urine Bacteria Rare Stool Occult Blood Negative 02/14/18 02/14/18 02/14/18 06:52 06:52 12:04 PT 28.6 H INR 2.6 Sodium 131 L Potassium 4.0 Chloride 95 L Carbon Dioxide 27 Anion Gap 13 BUN 79 H Creatinine 2.8 H Est GFR ( Amer) 26 Est GFR (Non-Af Amer) 22 POC Glucose (mg/dL) 83 Random Glucose 82 Calcium 7.9 L Phosphorus 5.1 H Magnesium 1.8 Total Bilirubin 1.2 AST 46 ALT 35 Alkaline Phosphatase 190 H NT-Pro-B Natriuret Pep 2950 H Total Protein 6.0 L Albumin 2.8 L Globulin 3.2 Albumin/Globulin Ratio 0.9 L Urine Color Urine Clarity Urine pH Ur Specific [place] Urine Protein Urine Glucose (UA) Urine Ketones Urine Blood Urine Nitrate Urine Bilirubin Urine Urobilinogen Ur Leukocyte Esterase Urine WBC (Auto) Urine RBC (Auto) Ur Squamous Epith Cells Urine Bacteria Stool Occult Blood 02/14/18 17:00 PT INR Sodium Potassium Chloride Carbon Dioxide Anion Gap BUN Creatinine Est GFR ( Amer) Est GFR (Non-Af Amer) POC Glucose (mg/dL) 106 Random Glucose Calcium Phosphorus Magnesium Total Bilirubin AST ALT Alkaline Phosphatase NT-Pro-B Natriuret Pep Total Protein Albumin Globulin Albumin/Globulin Ratio Urine Color Urine Clarity Urine pH Ur Specific [place] Urine Protein Urine Glucose (UA) Urine Ketones Urine Blood Urine Nitrate Urine Bilirubin Urine Urobilinogen Ur Leukocyte Esterase Urine WBC (Auto) Urine RBC (Auto) Ur Squamous Epith Cells Urine Bacteria Stool Occult Blood
[2018-02-15] MEDS: (Novolog) Insulin Aspart, Recombinant 100 u/ml 10 ml vial SC SCH ×4 (08:14→21:48)
[2018-02-15 10:29] LABS: HEMOGLOBIN 8.7 g/dL (12.0-18.0); MEAN CORPUSCULAR HEMOGLOBIN 36.8 pg (27.0-31.0); MEAN CORPUSCULAR HGB CONC 34.1 g/dL (33.0-37.0); MEAN PLATELET VOLUME 10.2 fL (7.2-11.7); RBC 2.35 Mil/uL (4.40-5.90); RED CELL DISTRIBUTION WIDTH 19.4 % (11.5-14.5); WHITE BLOOD COUNT 4.1 K/uL (4.8-10.8)
[2018-02-15 10:48] LABS: CALCIUM 7.8 mg/dl (8.6-10.4)
[2018-02-15] MEDS: Epoetin Alfa 10,000 unit/ml Dialysis IV SCH (13:24)
--- NOTE | 2018-02-15 18:38 | CP.PCM.PN ---
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, on HD since past 1+ month, admitted with severe hypotension on HD; Patient seen on HD; again had marked hypotension at beginning of HD, did not improve immediatedly despite giving IVF bolus; BP did eventually stabilize and patient able to complete HD treatment; Tolerating diet well; no nausea/vomiting; no sob; not urinating much despite being given diuretic last night; Objective - Vital Signs/Intake and Output Vital Signs (last 24 hours): Temp Pulse Resp BP Pulse Ox 97.6 F 72 20 102/54 L 100 02/15/18 15:00 02/15/18 15:00 02/15/18 15:00 02/15/18 15:00 02/15/18 15:00 Intake and Output: 02/15/18 02/15/18 06:59 18:59 Intake Total 120 Balance 120 - Medications Medications: Current Medications Acetaminophen (Tylenol 325mg Tab) 650 mg PO Q6 PRN PRN Reason: Fever >100.4 F and Pain (4-7) Bumetanide (Bumex) 2 mg PO DAILY [facility] Last Admin: 02/15/18 13:56 Dose: Not Given Epoetin Carlos A (Procrit) 10,000 unit IV MWF [facility] Last Admin: 02/15/18 13:24 Dose: 10,000 unit Insulin Aspart (Novolog) 0 unit SC [facility]; Protocol Last Admin: 02/15/18 13:35 Dose: Not Given Lactulose (Enulose) 20 gm PO DAILY [facility] Last Admin: 02/15/18 13:35 Dose: Not Given Moxifloxacin HCl (Avelox) 400 mg PO DAILY [facility]; Protocol Last Admin: 02/15/18 13:56 Dose: 400 mg Risperidone (Risperdal Tab) 0.25 mg PO HS [facility] Last Admin: 02/14/18 22:00 Dose: 0.25 mg - Labs Labs: 02/15/18 10:19 02/15/18 10:19 PT 28.6 SECONDS (9.7-12.2) H 02/14/18 06:52 INR 2.6 02/14/18 06:52 APTT 46 SECONDS (21-34) H 02/13/18 14:07 - Constitutional Appears: Non-toxic, No Acute Distress - Eye Exam Eye Exam: Normal appearance. absent: Scleral icterus - ENT Exam ENT Exam: Mucous Membranes Moist - Respiratory Exam Respiratory Exam: Clear to Ausculation Bilateral. absent: Respiratory Distress - Cardiovascular Exam Cardiovascular Exam: +S1, +S2. absent: Gallop, Rubs - GI/Abdominal Exam GI & Abdominal Exam: Soft. absent: Distended, Tenderness - Exam Exam: absent: Bladder Distension - Extremities Exam Additional comments: mild lower leg edema b/l - Neurological Exam Neurological Exam: Alert, Awake - Psychiatric Exam Psychiatric exam: Normal Affect, Normal Mood. absent: Agitated - Skin Skin Exam: Warm. absent: Cyanosis Assessment and Plan (1) Hypotension Assessment & Plan: Again with significant hypotension on HD today (although not as profound as 2 days ago when SBP persistently in 60's despite giving IVF bolus), did improve and able to complete treatment and tolerate UF; morning cortisol level somewhat low; otherwise, blood cultures neg (including those drawn as outpatient); no pericardial effusion mentioned on echo; -f/u with endocrine for any possibility of adrenal insufficiency; Status: Acute (2) Acute renal failure Assessment & Plan: BRANDI on CKD IV; cardiorenal etiology, initiated on HD to control volume status; need to be able to remove fluid on HD to prevent volume overload in the setting of CHF; -will continue HD on MWF schedule; will prolong duration of treatment to allow for ultrafiltration in the setting of hypotension; -will continue diuretics on non-HD days; f/u with cardiology regarding CHF meds (was on low dose B-leonela and NENA inhibitor, held due to hypotension); -avoid nephrotoxic agents; Status: Acute (3) CHF (congestive heart failure) Status: Acute (4) Thrombocytopenia Assessment & Plan: Progressive, awaiting hematology f/u; will avoid heparin bolus on HD; Status: Acute (5) Anemia Assessment & Plan: Hgb below goal for CKD (10-11g); given dose of EPO today, will re-dose on next HD; Status: Chronic
--- NOTE | 2018-02-15 22:16 | CP.PCM.PN ---
Subjective - Date & Time of Evaluation Date of Evaluation: 02/15/18 Time of Evaluation: 22:13 - Subjective Subjective: Patient seen and evaluated Denies chest pain and dyspnea Review of Systems - Constitutional Constitutional: absent: Anorexia, Chills, Fever - EENT Eyes: Change in Vision Nose/Mouth/Throat: absent: Dysphagia - Cardiovascular Cardiovascular: Lightheadedness. absent: Dyspnea - Respiratory Respiratory: absent: Dyspnea - Gastrointestinal Gastrointestinal: As Per HPI - Genitourinary Genitourinary: absent: Dysuria - Musculoskeletal Musculoskeletal: absent: Arthralgias, Back Pain - Neurological Neurological: As Per HPI - Psychiatric Additional comments: slow to respond - Hematologic/Lymphatic Hematologic: Easy Bruising Physical Exam - Constitutional Appears: Non-toxic, No Acute Distress - Eye Exam Eye Exam: Normal appearance. absent: Scleral icterus - ENT Exam ENT Exam: Mucous Membranes Moist - Respiratory Exam Respiratory Exam: Clear to Auscultation Bilateral. absent: Respiratory Distress - Cardiovascular Exam Cardiovascular Exam: Irregular Rhythm. absent: Gallop, Rubs - GI/Abdominal Exam GI & Abdominal Exam: Soft. absent: Distended, Tenderness - Exam Exam: absent: Bladder Distension Additional comments: no suprapubic tenderness - Neurological Exam Neurological exam: Alert Additional comments: no overt tremor - Psychiatric Exam Psychiatric exam: Normal Affect, Normal Mood - Skin Skin Exam: Normal Color, Warm Assessment & Plan (1) Hypotension Assessment and Plan: Most likely hypovalemia ECHO shows improved EF of 35-40% and severe Pulm HTN Status: Acute (2) Acute renal failure Assessment and Plan: BRANDI on advanced CKD; consistent with cardiorenal etiology; initiated on HD last month to control volume status and decrease venous congestion with hopes of possibly improving renal function (hence we did not yet deem patient as ESRD); stable electrolyte status; -next HD for tomorrow; aiming to remove 1-1.5L; -avoid nephrotoxic agents; Status: Acute (3) CHF (congestive heart failure) Assessment and Plan: With biventricular dysfunction per previous echo; goal is to keep euvolemic with both diuretics and ultrafiltration on HD; was on bumex 2 mg bid at rehab, will continue same once BP stable; will f/u with cardio for further recs; Status: Acute (4) Thrombocytopenia Assessment and Plan: Progressively worsening; recommend hematology eval; Status: Acute (5) Anemia Assessment and Plan: Hgb stable but below goal of 10-11 g for CKD; will dose EPO on HD tomorrow; Status: Chronic Objective - Vital Signs/Intake and Output Vital Signs (last 24 hours): Temp Pulse Resp BP Pulse Ox 97.6 F 80 20 96/56 L 100 02/15/18 15:00 02/15/18 18:54 02/15/18 15:00 02/15/18 18:54 02/15/18 15:00 - Medications Medications: Current Medications Acetaminophen (Tylenol 325mg Tab) 650 mg PO Q6 PRN PRN Reason: Fever >100.4 F and Pain (4-7) Bumetanide (Bumex) 2 mg PO DAILY [facility] Last Admin: 02/15/18 13:56 Dose: Not Given Epoetin Carlos A (Procrit) 10,000 unit IV [facility] Last Admin: 02/15/18 13:24 Dose: 10,000 unit Insulin Aspart (Novolog) 0 unit SC [facility]; Protocol Last Admin: 02/15/18 21:48 Dose: Not Given Lactulose (Enulose) 20 gm PO DAILY [facility] Last Admin: 02/15/18 13:35 Dose: Not Given Moxifloxacin HCl (Avelox) 400 mg PO DAILY [facility]; Protocol Last Admin: 02/15/18 13:56 Dose: 400 mg Risperidone (Risperdal Tab) 0.25 mg PO [facility] Last Admin: 02/15/18 21:26 Dose: 0.25 mg - Labs Labs: 02/15/18 10:19 02/15/18 10:19 PT 28.6 SECONDS (9.7-12.2) H 02/14/18 06:52 INR 2.6 02/14/18 06:52 APTT 46 SECONDS (21-34) H 02/13/18 14:07
[2018-02-16 07:15] LABS: BASO % 0.8 % (0.0-2.0); EOS # 0.1 K/uL (0.0-0.7); EOS % 2.8 % (0.0-4.0); HEMOGLOBIN 9.1 g/dL (12.0-18.0); LYMPH # 0.7 K/uL (1.0-4.3); LYMPH % 14.3 % (20.0-40.0); MEAN CELL VOLUME 107.4 fL (80.0-94.0); MEAN CORPUSCULAR HGB CONC 34.5 g/dL (33.0-37.0); MEAN PLATELET VOLUME 9.3 fL (7.2-11.7); MONO # 1.1 K/uL (0.0-0.8); MONO % 22.5 % (0.0-10.0); NEUT # 2.9 K/uL (1.8-7.0); NEUT % 59.6 % (50.0-75.0); RBC 2.46 Mil/uL (4.40-5.90); RED CELL DISTRIBUTION WIDTH 18.6 % (11.5-14.5); WHITE BLOOD COUNT 4.9 K/uL (4.8-10.8)
[2018-02-16 07:18] LABS: INR 2.4; PLATELET COUNT 18 K/uL (130-400); PROTHROMBIN TIME 26.1 SECONDS (9.7-12.2)
[2018-02-16] MEDS: (Novolog) Insulin Aspart, Recombinant 100 u/ml 10 ml vial SC SCH ×4 (07:30→21:26)
[2018-02-16 07:46] LABS: ALB/GLOB RATIO 0.9 (1.0-2.1); ALBUMIN 2.9 g/dL (3.5-5.0)
[2018-02-16 11:28] LABS: BASOPHIL 1 % (0-2); LYMPHOCYTE 10 % (20-40); METAMYELOCYTE 4 % (0-0); MONOCYTE 14 % (0-10); NEUTROPHIL 71 % (50-75); TOTAL CELLS COUNTED 100
[2018-02-16 11:29] LABS: ANISOCYTOSIS SLIGHT; OVALOCYTES SLIGHT; PLATELET ESTIMATE MARKEDLY DECREASED (NORMAL); POIKILOCYTOSIS SLIGHT
[2018-02-16 11:30] LABS: TEARDROP CELLS SLIGHT
--- NOTE | 2018-02-16 11:31 | CP.PCM.PN ---
Subjective - Date & Time of Evaluation Date of Evaluation: 02/16/18 Time of Evaluation: 11:28 - Subjective Subjective: pt feels weeke bp improved platlet 15 had dialysis yesterday Objective - Vital Signs/Intake and Output Vital Signs (last 24 hours): Temp Pulse Resp BP Pulse Ox 98 F 77 20 168/72 H 97 02/16/18 07:00 02/16/18 09:14 02/16/18 07:00 02/16/18 07:00 02/16/18 07:00 Intake and Output: 02/16/18 02/16/18 06:59 18:59 Intake Total 500 Balance 500 - Medications Medications: Current Medications Acetaminophen (Tylenol 325mg Tab) 650 mg PO Q6 PRN PRN Reason: Fever >100.4 F and Pain (4-7) Bumetanide (Bumex) 2 mg PO DAILY [facility] Last Admin: 02/16/18 10:45 Dose: 2 mg Epoetin Carlos A (Procrit) 10,000 unit [place] [facility] Last Admin: 02/15/18 13:24 Dose: 10,000 unit Insulin Aspart (Novolog) 0 unit SC [facility]; Protocol Last Admin: 02/16/18 07:30 Dose: Not Given Isosorbide Mononitrate (Imdur Er) 30 mg PO DAILY [facility] Lactulose (Enulose) 20 gm PO DAILY [facility] Last Admin: 02/16/18 10:46 Dose: Not Given Lisinopril (Zestril) 2.5 mg PO DAILY [facility] Moxifloxacin HCl (Avelox) 400 mg PO DAILY [facility]; Protocol Last Admin: 02/16/18 10:45 Dose: 400 mg Risperidone (Risperdal Tab) 0.25 mg PO [facility] Last Admin: 02/15/18 21:26 Dose: 0.25 mg - Labs Labs: 02/16/18 07:04 02/16/18 07:04 PT 26.1 SECONDS (9.7-12.2) H 02/16/18 07:04 INR 2.4 02/16/18 07:04 APTT 49 SECONDS (21-34) H 02/16/18 07:04 - Constitutional Appears: Non-toxic - Head Exam Head Exam: NORMAL INSPECTION - Eye Exam Eye Exam: Normal appearance Pupil Exam: NORMAL ACCOMODATION - ENT Exam ENT Exam: Mucous Membranes Moist - Neck Exam Neck Exam: Full ROM - Respiratory Exam Respiratory Exam: Clear to Ausculation Bilateral - Cardiovascular Exam Cardiovascular Exam: REGULAR RHYTHM - GI/Abdominal Exam GI & Abdominal Exam: Soft - Extremities Exam Extremities Exam: Normal Inspection - Back Exam Back Exam: NORMAL INSPECTION - Psychiatric Exam Psychiatric exam: Normal Affect Assessment and Plan - Assessment and Plan (Free Text) Assessment: thrombocythemia will need transfusion aneamia hypotension improved esrf Plan: possible transfusion platlet pt
[2018-02-16 15:41] LABS: PLATELET COUNT MANUAL 23 K/uL (130-400)
--- NOTE | 2018-02-16 16:07 | CP.PCM.PN ---
Subjective - Date & Time of Evaluation Date of Evaluation: 02/16/18 Time of Evaluation: 16:07 - Subjective Subjective: Denies any chest pain. [place]. Objective - Vital Signs/Intake and Output Vital Signs (last 24 hours): Temp Pulse Resp BP Pulse Ox 98 F 77 20 98/60 L 97 02/16/18 07:00 02/16/18 09:14 02/16/18 07:00 02/16/18 12:11 02/16/18 07:00 Intake and Output: 02/16/18 02/16/18 06:59 18:59 Intake Total 500 Balance 500 - Medications Medications: Current Medications Acetaminophen (Tylenol 325mg Tab) 650 mg PO Q6 PRN PRN Reason: Fever >100.4 F and Pain (4-7) Bumetanide (Bumex) 2 mg PO DAILY [facility] Last Admin: 02/16/18 10:45 Dose: 2 mg Epoetin Carlos A (Procrit) 10,000 unit IV MWF [facility] Last Admin: 02/15/18 13:24 Dose: 10,000 unit Insulin Aspart (Novolog) 0 unit SC [facility]; Protocol Last Admin: 02/16/18 12:55 Dose: Not Given Isosorbide Mononitrate (Imdur Er) 30 mg PO DAILY [facility] Lactulose (Enulose) 20 gm PO DAILY [facility] Last Admin: 02/16/18 10:46 Dose: Not Given Lisinopril (Zestril) 2.5 mg PO DAILY [facility] Metoprolol Tartrate (Lopressor) 12.5 mg PO 0800,1700 [facility] Moxifloxacin HCl (Avelox) 400 mg PO DAILY [facility]; Protocol Last Admin: 02/16/18 10:45 Dose: 400 mg Risperidone (Risperdal Tab) 0.25 mg PO HS [facility] Last Admin: 02/15/18 21:26 Dose: 0.25 mg - Labs Labs: 02/16/18 07:04 02/16/18 07:04 PT 26.1 SECONDS (9.7-12.2) H 02/16/18 07:04 INR 2.4 02/16/18 07:04 APTT 49 SECONDS (21-34) H 02/16/18 07:04 - Head Exam Head Exam: NORMOCEPHALIC - Neck Exam Neck Exam: Normal Inspection - Respiratory Exam Respiratory Exam: NORMAL BREATHING PATTERN - Cardiovascular Exam Cardiovascular Exam: Irregular Rhythm, Murmur - Neurological Exam Neurological Exam: Alert Assessment and Plan (1) Hypotension Assessment & Plan: BP, stable for now. However needs continuous monitoring. Adjust medicine accordingly. Status: Resolved (2) Dyspnea Assessment & Plan: Most likely secondary to LV dysfunction. Maximize medical management. Status: Acute (3) CHF (congestive heart failure) Status: Chronic
--- NOTE | 2018-02-16 18:09 | CON ---
DATE: 02/16/2018 HISTORY OF PRESENT ILLNESS: This is an 83-year-old man with several hematological problems. The patient is not a very good historian. He says that he lives with his and daughter at home and that his regular doctor is Dr. Rock in [place] and that he started dialysis around the beginning of January. He does not recall seeing financial systems director in the past and I recall him saying that his blood was not correct. PHYSICAL EXAMINATION: GENERAL: The patient is lying flat in bed and comfortable. SKIN: No petechiae, no bruises. HEENT: Anicteric with no mucosal lesions noted. NODES: Nonpalpable in the axillary, cervical, supraclavicular, or inguinal regions. LUNGS: Clear at present. No vertebral tenderness. The patient is able to lie flat in bed. HEART: S1 and S2, with irregularly irregular rhythm. ABDOMEN: Shows no liver or spleen. No tenderness. No rebound. No ascites. EXTREMITIES: Show no edema. PHOTOGRAPHY TEACHER: No focal findings. LABORATORY FINDINGS: Show several issues; 1. The white count was 4.1 and now 4.9; however, lymphocytes are 14% and the monocytes are 22%, so the issue here is he has a lymphoproliferative disorder. I am going to order to reevaluate this further. 2. Hemoglobin 8.7 and 9.1 with MCV that is elevated to 108. The several possibilities are: a. retic count and LDH. b. B12 deficiency can cause this. c Myelodysplastic or infiltrative process. I am holding off on a bone marrow aspiration biopsy at this point because of the issues of hypotension, but we will reevaluate after the laboratory findings are done. 3. The patient has low platelet count. Platelet count fluctuates daily from 25 to 43 yesterday to 18 today, the zero possibility of pumping of the platelets. He has much large platelets with clump platelets. So at this point, finally, he has renal failure and he is going to be getting pending the SSEP and evaluation for multiple myeloma. So at this point, I will be doing a manual platelet count, the B12 and check the flow cytometry and evaluate PT and PTT with the fibrinogen and we will further evaluate this after the reports come back. Tony Bhat MD [facility] # [id number]
--- NOTE | 2018-02-16 18:55 | CP.PCM.PN ---
Subjective - Date & Time of Evaluation Date of Evaluation: 02/16/18 Time of Evaluation: 11:00 - Subjective Subjective: Patient reports feeling well; didn't sleep last night due to disturbance by neighbor; otherwise, tolerating diet; no vomiting/diarrhea; no sob; not urinating much; Objective - Vital Signs/Intake and Output Vital Signs (last 24 hours): Temp Pulse Resp BP Pulse Ox 98.3 F 77 20 107/68 98 02/16/18 15:28 02/16/18 16:30 02/16/18 15:28 02/16/18 15:28 02/16/18 15:28 Intake and Output: 02/16/18 02/16/18 06:59 18:59 Intake Total 500 Balance 500 - Medications Medications: Current Medications Acetaminophen (Tylenol 325mg Tab) 650 mg PO Q6 PRN PRN Reason: Fever >100.4 F and Pain (4-7) Bumetanide (Bumex) 2 mg PO DAILY [facility] Last Admin: 02/16/18 10:45 Dose: 2 mg Epoetin Carlos A (Procrit) 10,000 unit IV MWF [facility] Last Admin: 02/15/18 13:24 Dose: 10,000 unit Insulin Aspart (Novolog) 0 unit SC [facility]; Protocol Last Admin: 02/16/18 17:09 Dose: Not Given Isosorbide Mononitrate (Imdur Er) 30 mg PO DAILY [facility] Lactulose (Enulose) 20 gm PO DAILY [facility] Last Admin: 02/16/18 10:46 Dose: Not Given Lisinopril (Zestril) 2.5 mg PO DAILY [facility] Metoprolol Tartrate (Lopressor) 12.5 mg PO 0800,1700 [facility] Last Admin: 02/16/18 18:05 Dose: Not Given Moxifloxacin HCl (Avelox) 400 mg PO DAILY [facility]; Protocol Last Admin: 02/16/18 10:45 Dose: 400 mg Risperidone (Risperdal Tab) 0.25 mg PO HS [facility] Last Admin: 02/15/18 21:26 Dose: 0.25 mg - Labs Labs: 02/16/18 07:04 02/16/18 07:04 PT 26.1 SECONDS (9.7-12.2) H 02/16/18 07:04 INR 2.4 02/16/18 07:04 APTT 49 SECONDS (21-34) H 02/16/18 07:04 - Constitutional Appears: Non-toxic, No Acute Distress - Eye Exam Eye Exam: Normal appearance - Respiratory Exam Respiratory Exam: Clear to Ausculation Bilateral. absent: Respiratory Distress - Cardiovascular Exam Cardiovascular Exam: +S1, +S2. absent: Gallop, Rubs - GI/Abdominal Exam GI & Abdominal Exam: Soft. absent: Distended, Tenderness - Extremities Exam Additional comments: mild b/l leg edema; - Neurological Exam Neurological Exam: Alert, Awake - Psychiatric Exam Psychiatric exam: Normal Mood. absent: Agitated - Skin Skin Exam: Warm. 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; initiated on HD to manage volume status due to severe CHF; urine output now appears to have dropped off, perhaps due to being given antibiotics (received single dose of vanco and genta prior to admission); otherwise relatively stable volume and electrolyte status; -continuing with HD on MWF schedule; will try to lengthen time to 4 hrs to allow for UF without dropping BP as much; -avoid nephrotoxic agents; Status: Acute (3) CHF (congestive heart failure) Assessment & Plan: Stable by symptoms/exam; concern that urine output dropped as patient cannot tolerate aggressive UF on HD; will continue with diuretics; restarting B-leonela at low dose; Status: Acute (4) Thrombocytopenia Assessment & Plan: Severe and progressive; hematology workup in progress, will f/u; transfuse per heme recs; Status: Acute (5) Anemia Assessment & Plan: No need for transfusion yet, giving EPO with HD; Status: Chronic
[2018-02-17] MEDS: (Novolog) Insulin Aspart, Recombinant 100 u/ml 10 ml vial SC SCH ×4 (07:30→21:48)
[2018-02-17 08:27] LABS: BASO % 0.6 % (0.0-2.0); EOS # 0.1 K/uL (0.0-0.7); EOS % 1.4 % (0.0-4.0); LYMPH # 0.6 K/uL (1.0-4.3); LYMPH % 9.9 % (20.0-40.0); MEAN CELL VOLUME 107.2 fL (80.0-94.0); MEAN CORPUSCULAR HEMOGLOBIN 37.3 pg (27.0-31.0); MEAN CORPUSCULAR HGB CONC 34.7 g/dL (33.0-37.0); MONO # 1.3 K/uL (0.0-0.8); NEUT # 3.9 K/uL (1.8-7.0); NEUT % 66.1 % (50.0-75.0); PLATELET COUNT 37 K/uL (130-400); RBC 2.41 Mil/uL (4.40-5.90); RED CELL DISTRIBUTION WIDTH 18.2 % (11.5-14.5); WHITE BLOOD COUNT 5.9 K/uL (4.8-10.8)
[2018-02-17 08:28] LABS: INR 2.1; PROTHROMBIN TIME 22.8 SECONDS (9.7-12.2)
[2018-02-17 08:39] LABS: ALB/GLOB RATIO 0.8 (1.0-2.1); ALBUMIN 2.7 g/dL (3.5-5.0); CALCIUM 8.2 mg/dl (8.6-10.4)
[2018-02-17 10:54] LABS: EOSINOPHIL 1 % (0-4); LYMPHOCYTE 10 % (20-40); MONOCYTE 16 % (0-10); NEUTROPHIL 73 % (50-75); PLATELET ESTIMATE MARKEDLY DECREASED (NORMAL); TOTAL CELLS COUNTED 100
[2018-02-17 11:00] LABS: ANISOCYTOSIS MODERATE
[2018-02-17 11:04] LABS: OVALOCYTES SLIGHT; POIKILOCYTOSIS SLIGHT
[2018-02-17 11:05] LABS: BURR CELLS SLIGHT; HYPOCHROMIC SLIGHT; POLYCHROMIC SLIGHT; SCHISTOCYTES SLIGHT; TOXIC GRANULATION PRESENT
--- NOTE | 2018-02-17 11:28 | CP.PCM.PN ---
Subjective - Date & Time of Evaluation Date of Evaluation: 02/17/18 Time of Evaluation: 11:25 - Subjective Subjective: pt in bed doesnot have any discomfort lab severe thrombocytopeania need transfusion Objective - Vital Signs/Intake and Output Vital Signs (last 24 hours): Temp Pulse Resp BP Pulse Ox 98.0 F 78 18 109/67 99 02/17/18 07:54 02/17/18 08:00 02/17/18 07:54 02/17/18 07:54 02/17/18 07:54 Intake and Output: 02/17/18 02/17/18 06:59 18:59 Intake Total 0 Balance 0 - Medications Medications: Current Medications Acetaminophen (Tylenol 325mg Tab) 650 mg PO Q6 PRN PRN Reason: Fever >100.4 F and Pain (4-7) Bisacodyl (Dulcolax) 10 mg PO ONCE ONE Stop: 02/17/18 11:23 Bumetanide (Bumex) 2 mg PO DAILY [facility] Last Admin: 02/17/18 09:33 Dose: 2 mg Epoetin [place] A (Procrit) 10,000 [place] [facility] [place] [facility] [place] Admin: 02/15/18 13:24 Dose: 10,000 unit Insulin Aspart (Novolog) 0 unit SC [facility]; Protocol Last Admin: 02/17/18 07:30 Dose: Not Given Isosorbide Mononitrate (Imdur Er) 30 mg PO DAILY [facility] Lactulose (Enulose) 20 gm PO DAILY [facility] Last Admin: 02/17/18 09:35 Dose: Not Given Lisinopril (Zestril) 2.5 mg PO DAILY [facility] Metoprolol Tartrate (Lopressor) 12.5 mg PO 0800,1700 [facility] Last Admin: 02/17/18 07:58 Dose: 12.5 mg Moxifloxacin HCl (Avelox) 400 mg PO DAILY [facility]; Protocol Last Admin: 02/17/18 09:33 Dose: 400 mg Risperidone (Risperdal Tab) 0.25 mg PO HS [facility] Last Admin: 02/16/18 21:26 Dose: 0.25 mg - Labs Labs: 02/17/18 08:14 02/17/18 08:14 PT 22.8 SECONDS (9.7-12.2) H 02/17/18 08:14 INR 2.1 02/17/18 08:14 APTT 49 SECONDS (21-34) H 02/16/18 07:04 - Constitutional Appears: Non-toxic - Head Exam Head Exam: ATRAUMATIC - Eye Exam Eye Exam: Conjunctival injection - ENT Exam ENT Exam: Mucous Membranes Moist - Neck Exam Neck Exam: Full ROM - Respiratory Exam Respiratory Exam: Decreased Breath Sounds - Cardiovascular Exam Cardiovascular Exam: Irregular Rhythm - GI/Abdominal Exam GI & Abdominal Exam: Normal Bowel Sounds - Back Exam Back Exam: NORMAL INSPECTION - Neurological Exam Neurological Exam: Awake, Oriented x3 - Psychiatric Exam Psychiatric exam: Normal Affect - Skin Skin Exam: Pallor Assessment and Plan - Assessment and Plan (Free Text) Assessment: severe throncytopeania renal ins aneamia hypotension chf Plan: will need platlet transfusion
[2018-02-17] MEDS ORDERED: Bisacodyl 5mg EC Tab PO ONE (12:00)
--- NOTE | 2018-02-17 17:11 | CP.PCM.PN ---
Subjective - Date & Time of Evaluation Date of Evaluation: 02/17/18 Time of Evaluation: 17:10 - Subjective Subjective: No SOB only complaint is joint pain due to Gout. Objective - Vital Signs/Intake and Output Vital Signs (last 24 hours): Temp Pulse Resp BP Pulse Ox 98.0 F 78 18 109/67 99 02/17/18 07:54 02/17/18 08:00 02/17/18 07:54 02/17/18 07:54 02/17/18 07:54 Intake and Output: 02/17/18 02/17/18 06:59 18:59 Intake Total 0 Balance 0 - Medications Medications: Current Medications Acetaminophen (Tylenol 325mg Tab) 650 mg PO Q6 PRN PRN Reason: Fever >100.4 F and Pain (4-7) Last Admin: 02/17/18 13:55 Dose: 650 mg Bumetanide (Bumex) 2 mg PO DAILY [facility] Last Admin: 02/17/18 09:33 Dose: 2 mg Epoetin Carlos A (Procrit) 10,000 [place] [facility] [place] Admin: 02/15/18 13:24 Dose: 10,000 unit Insulin Aspart (Novolog) 0 unit SC [facility]; Protocol Last Admin: 02/17/18 12:38 Dose: Not Given Isosorbide Mononitrate (Imdur Er) 30 mg PO DAILY [facility] Lactulose (Enulose) 20 gm PO DAILY [facility] Last Admin: 02/17/18 09:35 Dose: Not Given Lisinopril (Zestril) 2.5 mg PO DAILY [facility] Metoprolol Tartrate (Lopressor) 12.5 mg PO 0800,1700 [facility] Last Admin: 02/17/18 07:58 Dose: 12.5 mg Moxifloxacin HCl (Avelox) 400 mg PO DAILY [facility]; Protocol Last Admin: 02/17/18 09:33 Dose: 400 mg Risperidone (Risperdal Tab) 0.25 mg PO HS [facility] Last Admin: 02/16/18 21:26 Dose: 0.25 mg - Labs Labs: 02/17/18 08:14 02/17/18 08:14 PT 22.8 SECONDS (9.7-12.2) H 02/17/18 08:14 INR 2.1 02/17/18 08:14 APTT 49 SECONDS (21-34) H 02/16/18 07:04 - Head Exam Head Exam: NORMOCEPHALIC - Respiratory Exam Respiratory Exam: NORMAL BREATHING PATTERN - Cardiovascular Exam Cardiovascular Exam: Irregular Rhythm, Murmur - Neurological Exam Neurological Exam: Alert, Oriented x3 Assessment and Plan (1) CHF (congestive heart failure) Assessment & Plan: CHF, improved. Maintain fluid restricon with electrolyte management. Gout exacerbation is most likely secondary to CHF management.Treat underlying cause. Status: Chronic
--- NOTE | 2018-02-17 22:16 | CP.PCM.PN ---
Subjective - Date & Time of Evaluation Date of Evaluation: 02/17/18 Time of Evaluation: 14:00 - Subjective Subjective: Patient reports urinating more overnight; no sob; gout flare involving both ankles now; tolerating diet; Objective - Vital Signs/Intake and Output Vital Signs (last 24 hours): Temp Pulse Resp BP Pulse Ox 98.4 F 68 20 121/68 99 02/17/18 21:59 02/17/18 21:59 02/17/18 21:59 02/17/18 21:59 02/17/18 15:00 Intake and Output: 02/17/18 02/18/18 18:59 06:59 Intake Total 314 Balance 314 - Medications Medications: Current Medications Acetaminophen (Tylenol 325mg Tab) 650 mg PO Q6 PRN PRN Reason: Fever >100.4 F and Pain (4-7) Last Admin: 02/17/18 13:55 Dose: 650 mg Bumetanide (Bumex) 2 mg PO DAILY [facility] Last Admin: 02/17/18 09:33 Dose: 2 mg Epoetin Carlos A (Procrit) 10,000 unit IV MWF [facility] Last Admin: 02/15/18 13:24 Dose: 10,000 unit Insulin Aspart (Novolog) 0 unit SC [facility]; Protocol Last Admin: 02/17/18 21:48 Dose: Not Given Isosorbide Mononitrate (Imdur Er) 30 mg PO DAILY [facility] Lactulose (Enulose) 20 gm PO DAILY [facility] Last Admin: 02/17/18 09:35 Dose: Not Given Lisinopril (Zestril) 2.5 mg PO DAILY [facility] Metoprolol Tartrate (Lopressor) 12.5 mg PO 0800,1700 [facility] Last Admin: 02/17/18 18:00 Dose: Not Given Moxifloxacin HCl (Avelox) 400 mg PO DAILY [facility]; Protocol Last Admin: 02/17/18 09:33 Dose: 400 mg Risperidone (Risperdal Tab) 0.25 mg PO HS [facility] Last Admin: 02/17/18 21:31 Dose: 0.25 mg - Labs Labs: 02/17/18 08:14 02/17/18 08:14 PT 22.8 SECONDS (9.7-12.2) H 02/17/18 08:14 INR 2.1 02/17/18 08:14 APTT 49 SECONDS (21-34) H 02/16/18 07:04 - Constitutional Appears: Non-toxic, No Acute Distress - Eye Exam Eye Exam: Normal appearance - ENT Exam ENT Exam: Mucous Membranes Moist - Respiratory Exam Respiratory Exam: Clear to Ausculation Bilateral. absent: Respiratory Distress - Cardiovascular Exam Cardiovascular Exam: RRR. absent: Gallop, Rubs Additional comments: systolic murmur - GI/Abdominal Exam GI & Abdominal Exam: Soft. absent: Distended, Tenderness - Extremities Exam Additional comments: minimal leg edema; - Neurological Exam Neurological Exam: Alert, Awake - Psychiatric Exam Psychiatric exam: Normal Mood. absent: Agitated - Skin Skin Exam: Warm. absent: Cyanosis Assessment and Plan (1) Hypotension Assessment & Plan: BP now at baseline with SBP in 90s-low 100s; etiology still unclear; will monitor; Status: Resolved (2) Acute renal failure Assessment & Plan: BRANDI on CKD IV; on dialysis to manage volume status; urine output increased since yesterday; currently with stable volume and electrolyte status; -continue HD on MWF schedule; will aim for 1L net UF tomorrow; -avoid nephrotoxic agents; Status: Acute (3) CHF (congestive heart failure) Assessment & Plan: With LV dysfunction, elevated R sided pressures; restarted on B-blockers at low dose; will continue PO diuretics with bumex 2 mg daily, UF as BP tolerates on HD; holding NENA inhibitor for now; Status: Chronic (4) Thrombocytopenia Assessment & Plan: Getting platelet transfusion; hematology ordered workup, will f/u; Status: Acute (5) Anemia Assessment & Plan: Getting EPO on HD, will confer with hematology; Status: Chronic
[2018-02-18 06:29] LABS: BASO % 0.6 % (0.0-2.0); EOS # 0.1 K/uL (0.0-0.7); EOS % 1.4 % (0.0-4.0); LYMPH # 0.5 K/uL (1.0-4.3); LYMPH % 7.6 % (20.0-40.0); MEAN CORPUSCULAR HEMOGLOBIN 36.6 pg (27.0-31.0); MEAN CORPUSCULAR HGB CONC 34.2 g/dL (33.0-37.0); MEAN PLATELET VOLUME 8.8 fL (7.2-11.7); MONO # 1.5 K/uL (0.0-0.8); MONO % 23.1 % (0.0-10.0); NEUT # 4.4 K/uL (1.8-7.0); NEUT % 67.3 % (50.0-75.0); PLATELET COUNT 80 K/uL (130-400); RBC 2.45 Mil/uL (4.40-5.90); RED CELL DISTRIBUTION WIDTH 18.8 % (11.5-14.5); WHITE BLOOD COUNT 6.6 K/uL (4.8-10.8)
[2018-02-18 06:54] LABS: URIC ACID 7.5 mg/dL (3.5-8.5)
[2018-02-18] MEDS: (Novolog) Insulin Aspart, Recombinant 100 u/ml 10 ml vial SC SCH ×4 (08:08→21:24)
[2018-02-18 09:20] LABS: EOSINOPHIL 1 % (0-4); LYMPHOCYTE 8 % (20-40); MONOCYTE 24 % (0-10); NEUTROPHIL 67 % (50-75); TOTAL CELLS COUNTED 100
[2018-02-18 09:21] LABS: ANISOCYTOSIS SLIGHT; HYPOCHROMIC SLIGHT; OVALOCYTES SLIGHT; PLATELET ESTIMATE DECREASED (NORMAL); POIKILOCYTOSIS SLIGHT
[2018-02-18 09:22] LABS: BURR CELLS SLIGHT; MICROCYTOSIS SLIGHT
[2018-02-18] MEDS: Epoetin Alfa 10,000 unit/ml Dialysis IV SCH (10:32)
--- NOTE | 2018-02-18 11:15 | CP.PCM.PN ---
Subjective - Date & Time of Evaluation Date of Evaluation: 02/18/18 Time of Evaluation: 11:14 - Subjective Subjective: Patient seen and evaluated Denies chest pain and dyspnea Review of Systems - Constitutional Constitutional: absent: Anorexia, Chills, Fever - EENT Eyes: Change in Vision Nose/Mouth/Throat: absent: Dysphagia - Cardiovascular Cardiovascular: Lightheadedness. absent: Dyspnea - Respiratory Respiratory: absent: Dyspnea - Gastrointestinal Gastrointestinal: As Per HPI - Genitourinary Genitourinary: absent: Dysuria - Musculoskeletal Musculoskeletal: absent: Arthralgias, Back Pain - Neurological Neurological: As Per HPI - Psychiatric Additional comments: slow to respond - Hematologic/Lymphatic Hematologic: Easy Bruising Physical Exam - Constitutional Appears: Non-toxic, No Acute Distress - Eye Exam Eye Exam: Normal appearance. absent: Scleral icterus - ENT Exam ENT Exam: Mucous Membranes Moist - Respiratory Exam Respiratory Exam: Clear to Auscultation Bilateral. absent: Respiratory Distress - Cardiovascular Exam Cardiovascular Exam: Irregular Rhythm. absent: Gallop, Rubs - GI/Abdominal Exam GI & Abdominal Exam: Soft. absent: Distended, Tenderness - Exam Exam: absent: Bladder Distension Additional comments: no suprapubic tenderness - Neurological Exam Neurological exam: Alert Additional comments: no overt tremor - Psychiatric Exam Psychiatric exam: Normal Affect, Normal Mood - Skin Skin Exam: Normal Color, Warm Assessment & Plan (1) Hypotension Assessment and Plan: Most likely hypovalemia ECHO shows improved EF of 35-40% and severe Pulm HTN Status: Acute (2) Acute renal failure Assessment and Plan: BRANDI on advanced CKD; consistent with cardiorenal etiology; initiated on HD last month to control volume status and decrease venous congestion with hopes of possibly improving renal function (hence we did not yet deem patient as ESRD); stable electrolyte status; -avoid nephrotoxic agents; Status: Acute (3) CHF (congestive heart failure) Assessment and Plan: With biventricular dysfunction per previous echo; goal is to keep euvolemic with both diuretics and ultrafiltration on HD; was on bumex 2 mg bid at rehab, will continue same once BP stable; will f/u with cardio for further recs; Status: Acute (4) Thrombocytopenia Assessment and Plan: Status: Acute (5) Anemia Assessment and Plan: Hgb stable Status: Chronic Objective - Vital Signs/Intake and Output Vital Signs (last 24 hours): Temp Pulse Resp BP Pulse Ox 98 F 68 19 110/57 L 100 02/18/18 09:50 02/18/18 09:50 02/18/18 09:50 02/18/18 10:50 02/18/18 09:50 Intake and Output: 02/18/18 02/18/18 06:59 18:59 Intake Total 314 Balance 314 - Medications Medications: Current Medications Acetaminophen (Tylenol 325mg Tab) 650 mg PO Q6 PRN PRN Reason: Fever >100.4 F and Pain (4-7) Last Admin: 02/17/18 13:55 Dose: 650 mg Bumetanide (Bumex) 2 mg PO DAILY [facility] Last Admin: 02/17/18 09:33 Dose: 2 mg Epoetin Carlos A (Procrit) 10,000 unit IV [facility] [place] Last Admin: 02/18/18 10:32 Dose: 10,000 unit Insulin Aspart (Novolog) [address] [facility]; Protocol Last Admin: 02/18/18 08:08 Dose: Not Given Isosorbide Mononitrate (Imdur Er) 30 mg PO DAILY [facility] Lactulose (Enulose) 20 gm PO DAILY [facility] Last Admin: 02/17/18 09:35 Dose: Not Given Lisinopril (Zestril) 2.5 mg PO DAILY [facility] Metoprolol Tartrate (Lopressor) 12.5 mg PO 0800,1700 [facility] Last Admin: 02/18/18 08:08 Dose: Not Given Moxifloxacin HCl (Avelox) 400 mg PO DAILY [facility]; Protocol Last Admin: 02/17/18 09:33 Dose: 400 mg Risperidone (Risperdal Tab) 0.25 mg PO HS [facility] Last Admin: 02/17/18 21:31 Dose: 0.25 mg - Labs Labs: 02/18/18 06:23 02/18/18 06:23 PT 22.8 SECONDS (9.7-12.2) H 02/17/18 08:14 INR 2.1 02/17/18 08:14 APTT 49 SECONDS (21-34) H 02/16/18 07:04
--- NOTE | 2018-02-18 16:19 | CP.PCM.PN ---
Subjective - Date & Time of Evaluation Date of Evaluation: 02/18/18 Time of Evaluation: 16:16 - Subjective Subjective: pt doesnot c/o platlrt count improved after transfusion alot of anormal blood cells await hematology consult Objective - Vital Signs/Intake and Output Vital Signs (last 24 hours): Temp Pulse Resp BP Pulse Ox 98.1 F 76 20 123/80 97 02/18/18 15:00 02/18/18 15:00 02/18/18 15:00 02/18/18 15:00 02/18/18 15:00 Intake and Output: 02/18/18 02/18/18 06:59 18:59 Intake Total 314 Balance 314 - Medications Medications: Current Medications Acetaminophen (Tylenol 325mg Tab) 650 mg PO Q6 PRN PRN Reason: Fever >100.4 F and Pain (4-7) Last Admin: 02/17/18 13:55 Dose: 650 mg Bumetanide (Bumex) 2 mg PO DAILY [facility] Last Admin: 02/18/18 12:19 Dose: Not Given Epoetin Carlos A (Procrit) 10,000 unit IV [facility] [place] Last Admin: 02/18/18 10:32 Dose: 10,000 unit Insulin Aspart (Novolog) 0 unit SC [facility]; Protocol Last Admin: 02/18/18 12:20 Dose: Not Given Lactulose (Enulose) 20 gm PO DAILY [facility] Last Admin: 02/18/18 12:19 Dose: Not Given Lisinopril (Zestril) 2.5 mg PO DAILY [facility] Metoprolol Tartrate (Lopressor) 12.5 mg PO 0800,1700 [facility] Last Admin: 02/18/18 08:08 Dose: Not Given Moxifloxacin HCl (Avelox) 400 mg PO DAILY [facility]; Protocol Last Admin: 02/18/18 10:30 Dose: Not Given Risperidone (Risperdal Tab) 0.25 mg PO HS [facility] Last Admin: 02/17/18 21:31 Dose: 0.25 mg - Labs Labs: 02/18/18 06:23 02/18/18 06:23 PT 22.8 SECONDS (9.7-12.2) H 02/17/18 08:14 INR 2.1 02/17/18 08:14 APTT 49 SECONDS (21-34) H 02/16/18 07:04 - Constitutional Appears: Non-toxic - Head Exam Head Exam: NORMAL INSPECTION - Eye Exam Eye Exam: Normal appearance Pupil Exam: NORMAL ACCOMODATION - ENT Exam ENT Exam: Mucous Membranes Moist - Neck Exam Neck Exam: Normal Inspection - Respiratory Exam Respiratory Exam: Clear to Ausculation Bilateral - Cardiovascular Exam Cardiovascular Exam: REGULAR RHYTHM - GI/Abdominal Exam GI & Abdominal Exam: Normal Bowel Sounds - Rectal Exam Rectal Exam: NORMAL INSPECTION - Back Exam Back Exam: NORMAL INSPECTION - Neurological Exam Neurological Exam: Normal Gait - Psychiatric Exam Psychiatric exam: Normal Affect - Skin Skin Exam: Normal Color, Pallor Assessment and Plan - Assessment and Plan (Free Text) Assessment: aneamia thromocytopeNIA ABDORMAL RBCS RF [facility] HENMAT EVALUATION REPEATE LAB Plan: LAB IN AM
--- NOTE | 2018-02-18 21:10 | CP.PCM.PN ---
Subjective - Date & Time of Evaluation Date of Evaluation: 02/18/18 Time of Evaluation: 12:30 - Subjective Subjective: Patient seen on HD, tolerating well without hypotension; complaining of gout flare affecting both knees and ankles; breathing ok; Objective - Vital Signs/Intake and Output Vital Signs (last 24 hours): Temp Pulse Resp BP Pulse Ox 98.1 F 76 20 123/80 97 02/18/18 15:00 02/18/18 15:00 02/18/18 15:00 02/18/18 15:00 02/18/18 15:00 - Medications Medications: Current Medications Acetaminophen (Tylenol 325mg Tab) 650 mg PO Q6 PRN PRN Reason: Fever >100.4 F and Pain (4-7) Last Admin: 02/17/18 13:55 Dose: 650 mg Bumetanide (Bumex) 2 mg PO DAILY [facility] Last Admin: 02/18/18 12:19 Dose: Not Given Epoetin Carlos A (Procrit) 10,000 unit [place] [facility] [place] Last Admin: 02/18/18 10:32 Dose: 10,000 unit Insulin Aspart (Novolog) 0 unit SC [facility]; Protocol Last Admin: 02/18/18 17:21 Dose: 3 unit Lactulose (Enulose) 20 gm PO DAILY [facility] Last Admin: 02/18/18 12:19 Dose: Not Given Lisinopril (Zestril) 2.5 mg PO DAILY [facility] Metoprolol Tartrate (Lopressor) 12.5 mg PO 0800,1700 [facility] Last Admin: 02/18/18 17:22 Dose: 12.5 mg Moxifloxacin HCl (Avelox) 400 mg PO DAILY [facility]; Protocol Last Admin: 02/18/18 10:30 Dose: Not Given Risperidone (Risperdal Tab) 0.25 mg PO [facility] Last Admin: 02/17/18 21:31 Dose: 0.25 mg - Labs Labs: 02/18/18 06:23 02/18/18 06:23 PT 22.8 SECONDS (9.7-12.2) H 02/17/18 08:14 INR 2.1 02/17/18 08:14 APTT 49 SECONDS (21-34) H 02/16/18 07:04 - Constitutional Appears: Non-toxic, No Acute Distress - Eye Exam Eye Exam: Normal appearance. absent: Scleral icterus - ENT Exam ENT Exam: Mucous Membranes Moist - Respiratory Exam Respiratory Exam: Clear to Ausculation Bilateral. absent: Respiratory Distress - Cardiovascular Exam Cardiovascular Exam: Irregular Rhythm. absent: Tachycardia, Gallop, RRR - GI/Abdominal Exam GI & Abdominal Exam: Soft. absent: Distended, Tenderness - Extremities Exam Additional comments: minimal leg edema; increased warmth b/l knees; - Neurological Exam Neurological Exam: Alert, Awake - Psychiatric Exam Psychiatric exam: Normal Affect, Normal Mood. absent: Agitated - Skin Skin Exam: Warm. absent: Cyanosis Assessment and Plan (1) Hypotension Assessment & Plan: Etiology unclear but now tolerating UF on HD well; Status: Resolved (2) Acute renal failure Assessment & Plan: BRANDI on CKD IV; increase in serum creatinine higher than usual for patient after 2 days without HD; -continuing with HD on MWF schedule; -avoid nephrotoxic agents (important to preserve residual renal function in patient with severe CHF); Status: Acute (3) CHF (congestive heart failure) Assessment & Plan: With severe systolic dysfunction; appears euvolemic on exam; will continue diuretics and optimize volume status with HD; continue B-leonela; Status: Chronic (4) Thrombocytopenia Assessment & Plan: Getting workup with hematology, will follow; avoiding heparin on HD; Status: Acute (5) Anemia Assessment & Plan: Hgb below goal; continuing with EPO on HD; Status: Chronic (6) Gout flare Assessment & Plan: No improvement with single dose of colchicine yesterday; given renal failure, will avoid re-dosing to prevent toxicity; trying to avoid NSAIDS as well; starting prednisone 40 mg daily for short course; Status: Acute
[2018-02-19 06:59] LABS: BASO % 0.1 % (0.0-2.0); LYMPH # 0.4 K/uL (1.0-4.3); LYMPH % 5.3 % (20.0-40.0); MEAN CELL VOLUME 108.2 fL (80.0-94.0); MEAN CORPUSCULAR HEMOGLOBIN 36.4 pg (27.0-31.0); MEAN CORPUSCULAR HGB CONC 33.6 g/dL (33.0-37.0); MEAN PLATELET VOLUME 9.8 fL (7.2-11.7); MONO # 1.4 K/uL (0.0-0.8); MONO % 17.3 % (0.0-10.0); NEUT # 6.3 K/uL (1.8-7.0); NEUT % 77.3 % (50.0-75.0); PLATELET COUNT 58 K/uL (130-400); RBC 2.46 Mil/uL (4.40-5.90); RED CELL DISTRIBUTION WIDTH 18.2 % (11.5-14.5); WHITE BLOOD COUNT 8.1 K/uL (4.8-10.8)
[2018-02-19] MEDS: (Novolog) Insulin Aspart, Recombinant 100 u/ml 10 ml vial SC SCH ×4 (07:48→21:20)
[2018-02-19 10:14] LABS: ANISOCYTOSIS MODERATE; LYMPHOCYTE 3 % (20-40); MONOCYTE 15 % (0-10); NEUTROPHIL 82 % (50-75); OVALOCYTES SLIGHT; PLATELET ESTIMATE DECREASED (NORMAL); TOTAL CELLS COUNTED 100
--- NOTE | 2018-02-19 12:01 | CP.PCM.PN ---
Subjective - Date & Time of Evaluation Date of Evaluation: 02/19/18 Time of Evaluation: 11:59 - Subjective Subjective: pt c/o of pain r knee Objective - Vital Signs/Intake and Output Vital Signs (last 24 hours): Temp Pulse Resp BP Pulse Ox 97.9 F 65 20 104/62 100 02/19/18 07:00 02/19/18 07:00 02/19/18 07:00 02/19/18 09:58 02/19/18 07:00 - Medications Medications: Current Medications Acetaminophen (Tylenol 325mg Tab) 650 mg PO Q6 PRN PRN Reason: Fever >100.4 F and Pain (4-7) Last Admin: 02/17/18 13:55 Dose: 650 mg Bumetanide (Bumex) 2 mg PO DAILY [facility] Last Admin: 02/19/18 09:57 Dose: 2 mg Epoetin Carlos A (Procrit) 10,000 unit IV [facility] Last Admin: 02/18/18 10:32 Dose: 10,000 unit Insulin Aspart (Novolog) 0 unit SC [facility]; Protocol Last Admin: 02/19/18 07:48 Dose: Not Given Lactulose (Enulose) 20 gm PO DAILY [facility] Last Admin: 02/19/18 09:57 Dose: 20 gm Lisinopril (Zestril) 2.5 mg PO DAILY [facility] Metoprolol Tartrate (Lopressor) 12.5 mg PO 0800,1700 [facility] Last Admin: 02/19/18 09:58 Dose: Not Given Risperidone (Risperdal Tab) 0.25 mg PO [facility] Last Admin: 02/18/18 21:54 Dose: 0.25 mg - Labs Labs: 02/19/18 04:00 02/18/18 06:23 PT 22.8 SECONDS (9.7-12.2) H 02/17/18 08:14 INR 2.1 02/17/18 08:14 APTT 49 SECONDS (21-34) H 02/16/18 07:04 - Constitutional Appears: Non-toxic, Unkempt - Head Exam Head Exam: ATRAUMATIC - Eye Exam Eye Exam: Normal appearance Pupil Exam: NORMAL ACCOMODATION - ENT Exam ENT Exam: Mucous Membranes Moist - Neck Exam Neck Exam: Full ROM - Respiratory Exam Respiratory Exam: NORMAL BREATHING PATTERN - Cardiovascular Exam Cardiovascular Exam: REGULAR RHYTHM - GI/Abdominal Exam GI & Abdominal Exam: Normal Bowel Sounds - Rectal Exam Rectal Exam: NORMAL INSPECTION - Exam Exam: NORMAL INSPECTION - Extremities Exam Extremities Exam: Joint Swelling Additional comments: knee swalen and tender - Back Exam Back Exam: NORMAL INSPECTION - Neurological Exam Neurological Exam: Abnormal Gait, Awake - Psychiatric Exam Psychiatric exam: Normal Affect - Skin Skin Exam: Normal Color Assessment and Plan - Assessment and Plan (Free Text) Assessment: acute pain and swelling r knee Plan: xray and painmed
--- NOTE | 2018-02-19 13:27 | RAD ---
Date of service: 02/19/2018 PROCEDURE: Bilateral Knee Radiographs. HISTORY: Knee Pain COMPARISON: None. FINDINGS: BONES: No acute fracture or destructive bony lesion identified, bilaterally. JOINTS: No subluxation or dislocation is identified bilaterally. Joint space narrowing is identified more at the left and right medial femorotibial joint compartments and patellofemoral compartments compatible with degenerative joint disease. No overt osteophyte development. Limited cortical sclerosis associated however. SOFT TISSUES: Arterial calcifications are identified in the bilateral thigh and knee soft tissues. JOINT EFFUSION: Right Knee: None. Left Knee: Mild left suprapatellar bursa effusion noted. OTHER FINDINGS: None. 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 No acute fracture, subluxation or dislocation appreciated bilaterally.
[2018-02-19] MEDS ORDERED: Barium Sulfate Susp 0.1% w/v, 0.1% w/w 450 mL Bottle PO SCH (14:00)
[2018-02-19] MEDS ORDERED: Enoxaparin 40 mg Syringe SC ONE (16:56)
--- NOTE | 2018-02-19 20:05 | CP.PCM.PN ---
Subjective - Date & Time of Evaluation Date of Evaluation: 02/19/18 Time of Evaluation: 17:20 - Subjective Subjective: Patient seen and evaluated Denies chest pain and dyspnea Platelet count dropping again Review of Systems - Constitutional Constitutional: absent: Anorexia, Chills, Fever - EENT Eyes: Change in Vision Nose/Mouth/Throat: absent: Dysphagia - Cardiovascular Cardiovascular: Lightheadedness. absent: Dyspnea - Respiratory Respiratory: absent: Dyspnea - Gastrointestinal Gastrointestinal: As Per HPI - Genitourinary Genitourinary: absent: Dysuria - Musculoskeletal Musculoskeletal: absent: Arthralgias, Back Pain - Neurological Neurological: As Per HPI - Psychiatric Additional comments: slow to respond - Hematologic/Lymphatic Hematologic: Easy Bruising Physical Exam - Constitutional Appears: Non-toxic, No Acute Distress - Eye Exam Eye Exam: Normal appearance. absent: Scleral icterus - ENT Exam ENT Exam: Mucous Membranes Moist - Respiratory Exam Respiratory Exam: Clear to Auscultation Bilateral. absent: Respiratory Distress - Cardiovascular Exam Cardiovascular Exam: Irregular Rhythm. absent: Gallop, Rubs - GI/Abdominal Exam GI & Abdominal Exam: Soft. absent: Distended, Tenderness - Exam Exam: absent: Bladder Distension Additional comments: no suprapubic tenderness - Neurological Exam Neurological exam: Alert Additional comments: no overt tremor - Psychiatric Exam Psychiatric exam: Normal Affect, Normal Mood - Skin Skin Exam: Normal Color, Warm Assessment & Plan (1) Hypotension resolved Assessment and Plan: Most likely hypovalemia ECHO shows improved EF of 35-40% and severe Pulm HTN Status: Acute (2) Renal failure Assessment and Plan: BRANDI on advanced CKD; consistent with cardiorenal etiology; initiated on HD last month to control volume status and decrease venous congestion with hopes of possibly improving renal function (hence we did not yet deem patient as ESRD); s table electrolyte status; -avoid nephrotoxic agents; Status: Acute (3) CHF (congestive heart failure) Assessment and Plan: With biventricular dysfunction per previous echo; goal is to keep euvolemic with both diuretics and ultrafiltration on HD; was on bumex 2 mg bid at rehab, will continue same once BP stable; will f/u with cardio for further recs; Status: Acute (4) Thrombocytopenia Assessment and Plan: Status: Acute (5) Anemia Assessment and Plan: Hgb stable Status: Chronic Patient need to be on AC for A Fib Patient still has low platelets Improved after Plt transfusion and dropping again Hold Coumadin till the issue is resolved Start Lovenox 30sc bid if okay with Hematology Objective - Vital Signs/Intake and Output Vital Signs (last 24 hours): Temp Pulse Resp BP Pulse Ox 97.9 F 79 20 112/64 98 02/19/18 16:37 02/19/18 17:04 02/19/18 16:37 02/19/18 17:04 02/19/18 16:37 Intake and Output: 02/19/18 02/20/18 18:59 06:59 Intake Total 700 Balance 700 - Medications Medications: Current Medications Acetaminophen (Tylenol 325mg Tab) 650 mg PO Q6 PRN PRN Reason: Fever >100.4 F and Pain (4-7) Last Admin: 02/17/18 13:55 Dose: 650 mg Barium Sulfate (Volumen 450 Ml) 2 ml PO QID [facility] Bumetanide (Bumex) 2 mg PO DAILY [facility] Last Admin: 02/19/18 09:57 Dose: 2 mg Enoxaparin Sodium (Lovenox) 30 mg SC Q12 [facility] Stop: 02/25/18 23:59 Epoetin Carlos A (Procrit) 10,000 unit IV MWF [facility] Last Admin: 02/18/18 10:32 Dose: 10,000 unit Insulin Aspart (Novolog) 0 unit SC [facility]; Protocol Last Admin: 02/19/18 17:23 Dose: Not Given Lactulose (Enulose) 20 gm PO DAILY [facility] Last Admin: 02/19/18 09:57 Dose: 20 gm Lisinopril (Zestril) 2.5 mg PO DAILY [facility] Metoprolol Tartrate (Lopressor) 12.5 mg PO 0800,1700 [facility] Last Admin: 02/19/18 17:25 Dose: 12.5 mg Risperidone (Risperdal Tab) 0.25 mg PO HS [facility] Last Admin: 02/18/18 21:54 Dose: 0.25 mg - Labs Labs: 02/19/18 04:00 02/18/18 06:23 PT 22.8 SECONDS (9.7-12.2) H 02/17/18 08:14 INR 2.1 02/17/18 08:14 APTT 49 SECONDS (21-34) H 02/16/18 07:04
--- NOTE | 2018-02-19 22:37 | CP.PCM.PN ---
Subjective - Date & Time of Evaluation Date of Evaluation: 02/19/18 Time of Evaluation: 14:00 - Subjective Subjective: Patient still reporting knee pain, worse on L; unable to move due to pain; no significant pain at rest; tolerating diet; breathing well; Objective - Vital Signs/Intake and Output Vital Signs (last 24 hours): Temp Pulse Resp BP Pulse Ox 97.9 F 79 20 112/64 98 02/19/18 16:37 02/19/18 17:04 02/19/18 16:37 02/19/18 17:04 02/19/18 16:37 Intake and Output: 02/19/18 02/20/18 18:59 06:59 Intake Total 700 Balance 700 - Medications Medications: Current Medications Acetaminophen (Tylenol 325mg Tab) 650 mg PO Q6 PRN PRN Reason: Fever >100.4 F and Pain (4-7) Last Admin: 02/17/18 13:55 Dose: 650 mg Barium Sulfate (Volumen 450 Ml) 2 ml PO QID [facility] Bumetanide (Bumex) 2 mg PO DAILY [facility] Last Admin: 02/19/18 09:57 Dose: 2 mg Enoxaparin Sodium (Lovenox) 30 mg SC Q12 [facility] Stop: 02/25/18 23:59 Epoetin Carlos A (Procrit) 10,000 unit IV MWF [facility] Last Admin: 02/18/18 10:32 Dose: 10,000 unit Insulin Aspart (Novolog) 0 unit SC [facility]; Protocol Last Admin: 02/19/18 21:20 Dose: Not Given Lactulose (Enulose) 20 gm PO DAILY [facility] Last Admin: 02/19/18 09:57 Dose: 20 gm Lisinopril (Zestril) 2.5 mg PO DAILY [facility] Metoprolol Tartrate (Lopressor) 12.5 mg PO 0800,1700 [facility] Last Admin: 02/19/18 17:25 Dose: 12.5 mg Risperidone (Risperdal Tab) 0.25 mg PO HS [facility] Last Admin: 02/19/18 21:02 Dose: 0.25 mg - Labs Labs: 02/19/18 04:00 02/18/18 06:23 PT 22.8 SECONDS (9.7-12.2) H 02/17/18 08:14 INR 2.1 02/17/18 08:14 APTT 49 SECONDS (21-34) H 02/16/18 07:04 - Constitutional Appears: Non-toxic, No Acute Distress - Eye Exam Eye Exam: Normal appearance - Respiratory Exam Respiratory Exam: Clear to Ausculation Bilateral. absent: Respiratory Distress - Cardiovascular Exam Cardiovascular Exam: Irregular Rhythm, Murmur. absent: Gallop, Rubs - GI/Abdominal Exam GI & Abdominal Exam: Soft. absent: Distended, Tenderness - Extremities Exam Additional comments: mild leg edema; - Neurological Exam Neurological Exam: Alert, Awake - Psychiatric Exam Psychiatric exam: Normal Mood. absent: Agitated - Skin Skin Exam: Warm. 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; cardiorenal etiology, on HD since past once and a half months; relatively stable volume and electrolyte status; next HD for tomorrow with goal of 1.5-2L net UF; Status: Acute (3) CHF (congestive heart failure) Assessment & Plan: With LV systolic dysfunction as well as R sided overload; continuing with diuretics in addition to UF on HD; continue B-blockers to optimize CHF status; Status: Chronic (4) Thrombocytopenia Assessment & Plan: Progressive; awaiting workup from heme; Status: Acute (5) Anemia Status: Chronic (6) Gout flare Assessment & Plan: s/p single dose of PO prednisone yesterday without much improvement; re-dosing today; should avoid NSAIDS given renal failure and CHF (need to preserve residual renal function); Status: Acute
[2018-02-20 06:14] LABS: BASO % 0.1 % (0.0-2.0); LYMPH # 0.4 K/uL (1.0-4.3); LYMPH % 5.3 % (20.0-40.0); MEAN CELL VOLUME 107.7 fL (80.0-94.0); MEAN CORPUSCULAR HEMOGLOBIN 36.4 pg (27.0-31.0); MEAN CORPUSCULAR HGB CONC 33.8 g/dL (33.0-37.0); MEAN PLATELET VOLUME 8.9 fL (7.2-11.7); MONO # 0.9 K/uL (0.0-0.8); MONO % 10.9 % (0.0-10.0); NEUT # 6.7 K/uL (1.8-7.0); NEUT % 83.7 % (50.0-75.0); PLATELET COUNT 76 K/uL (130-400); RBC 2.46 Mil/uL (4.40-5.90)
[2018-02-20 06:23] LABS: INR 1.7; PROTHROMBIN TIME 18.2 SECONDS (9.7-12.2)
[2018-02-20] MEDS: (Novolog) Insulin Aspart, Recombinant 100 u/ml 10 ml vial SC SCH ×4 (07:34→22:55)
[2018-02-20 08:46] LABS: LYMPHOCYTE 5 % (20-40); MONOCYTE 7 % (0-10); NEUTROPHIL 88 % (50-75); TOTAL CELLS COUNTED 100
[2018-02-20 08:51] LABS: PLATELET ESTIMATE DECREASED (NORMAL)
[2018-02-20 08:53] LABS: ANISOCYTOSIS SLIGHT; BURR CELLS SLIGHT; HYPOCHROMIC SLIGHT; LARGE PLATELETS PRESENT; OVALOCYTES SLIGHT; POIKILOCYTOSIS SLIGHT; TEARDROP CELLS SLIGHT
[2018-02-20] MEDS: Enoxaparin 30 mg Syringe SC SCH ×2 (09:49→22:55)
[2018-02-20] MEDS: Epoetin Alfa 10,000 unit/ml Dialysis IV SCH (10:21)
--- NOTE | 2018-02-20 10:57 | CP.PCM.PN ---
Subjective - Date & Time of Evaluation Date of Evaluation: 02/20/18 Time of Evaluation: 10:54 - Subjective Subjective: pt feels ok has dialysis today platlet improved 75 cleared for disch back to rehab Objective - Vital Signs/Intake and Output Vital Signs (last 24 hours): Temp Pulse Resp BP Pulse Ox 97.9 F 74 17 107/55 L 100 02/20/18 09:30 02/20/18 09:30 02/20/18 09:30 02/20/18 10:30 02/20/18 09:30 Intake and Output: 02/20/18 02/20/18 06:59 18:59 Output Total 300 Balance -300 - Medications Medications: Current Medications Acetaminophen (Tylenol 325mg Tab) 650 mg PO Q6 PRN PRN Reason: Fever >100.4 F and Pain (4-7) Last Admin: 02/17/18 13:55 Dose: 650 mg Barium Sulfate (Volumen 450 Ml) 2 ml PO QID [facility] Bumetanide (Bumex) 2 mg PO DAILY [facility] Last Admin: 02/20/18 09:49 Dose: Not Given Enoxaparin Sodium (Lovenox) 30 mg SC Q12 [facility] Stop: 02/25/18 23:59 Last Admin: 02/20/18 09:49 Dose: Not Given Epoetin Carlos A (Procrit) 10,000 unit IV MWF [facility] Last Admin: 02/20/18 10:21 Dose: 10,000 unit Insulin Aspart (Novolog) 0 unit SC [facility]; Protocol Last Admin: 02/20/18 07:34 Dose: Not Given Lactulose (Enulose) 20 gm PO DAILY [facility] Last Admin: 02/20/18 09:49 Dose: Not Given Lisinopril (Zestril) 2.5 mg PO DAILY [facility] Metoprolol Tartrate (Lopressor) 12.5 mg PO 0800,1700 [facility] Last Admin: 02/20/18 08:21 Dose: Not Given Risperidone (Risperdal Tab) 0.25 mg PO HS [facility] Last Admin: 02/19/18 21:02 Dose: 0.25 mg - Labs Labs: 02/20/18 06:10 02/20/18 06:10 PT 18.2 SECONDS (9.7-12.2) H 02/20/18 06:10 INR 1.7 02/20/18 06:10 APTT 40 SECONDS (21-34) H 02/20/18 06:10 - Constitutional Appears: Non-toxic - Head Exam Head Exam: NORMOCEPHALIC - Eye Exam Eye Exam: Normal appearance Pupil Exam: NORMAL ACCOMODATION - ENT Exam ENT Exam: Mucous Membranes Moist - Neck Exam Neck Exam: Full ROM - Respiratory Exam Respiratory Exam: Clear to Ausculation Bilateral - GI/Abdominal Exam GI & Abdominal Exam: Normal Bowel Sounds - Exam Exam: NORMAL INSPECTION - Extremities Exam Extremities Exam: Full ROM - Back Exam Back Exam: NORMAL INSPECTION - Neurological Exam Neurological Exam: Awake, Oriented x3 - Psychiatric Exam Psychiatric exam: Normal Affect - Skin Skin Exam: Pallor Assessment and Plan - Assessment and Plan (Free Text) Assessment: renal f on dialysis s/p hypotension aneamia generalised weeknessbiventricular failiur Plan: discnh to rehab cont allmed and dialysis
[2018-02-20 13:57] LABS: TOTAL PSA 1.2 ng/mL (< or = 4.0)
--- NOTE | 2018-02-20 14:25 | PCM.HF ---
Heart Failure Core Measure - Heart Failure Ejection Fraction: Less Than 40 % NENA Inhibitor Prescribed: No Contraindication/Reason for not providing: ESRD Beta-Isaías Prescribed: Metoprolol Succinate Angiotensin II Receptor Isaías Prescribed: No Contraindication/Reason for not providing: ESRD AnticoagulationTherapy for Atrial Fibrillation/Atrialflutter: Yes Aldosterone Antagonist Prescribed: No Contraindication/Reason for not providing: ESRD Hydralazine Nitrate Prescribed: No Contraindication/Reason for not providing: BP LOW IN 100'S Implantable Cardioverter Defibrillator Therapy: No Contraindication/Reason for not providing: PT HAS AICD Cardiac Resynchronization Therapy Prescribed: No Contraindication/Reason for not providing: PT HAS AICD - Follow up [facility] Follow Up Date (must be within 7 days from discharge): 02/22/18 Follow Up Time: 12:00
--- NOTE | 2018-02-20 16:10 | CP.PCM.PCO ---
Physician Communication Note - Physician Communication Note Physician Communication Note: as per Dr. Moncada patient is not cleared for discharge
--- NOTE | 2018-02-20 21:58 | CP.PCM.PN ---
Subjective - Date & Time of Evaluation Date of Evaluation: 02/20/18 Time of Evaluation: 18:30 - Subjective Subjective: Patient seen and evaluated denies chest pain and dyspnea Patient re started on Coumadin after Hemotology clearance Transfer to rehab once INR is therapeutic Objective - Vital Signs/Intake and Output Vital Signs (last 24 hours): Temp Pulse Resp BP Pulse Ox 97.6 F 71 20 102/63 100 02/20/18 16:22 02/20/18 16:22 02/20/18 16:22 02/20/18 16:22 02/20/18 16:22 Intake and Output: 02/20/18 02/21/18 18:59 06:59 Intake Total 600 Balance 600 - Medications Medications: Current Medications Acetaminophen (Tylenol 325mg Tab) 650 mg PO Q6 PRN PRN Reason: Fever >100.4 F and Pain (4-7) Last Admin: 02/17/18 13:55 Dose: 650 mg Bumetanide (Bumex) 2 mg PO DAILY [facility] Last Admin: 02/20/18 09:49 Dose: Not Given Enoxaparin Sodium (Lovenox) 30 mg SC Q12 [facility] Stop: 02/25/18 23:59 Last Admin: 02/20/18 09:49 Dose: Not Given Epoetin Carlos A (Procrit) 10,000 unit IV MWF [facility] Last Admin: 02/20/18 10:21 Dose: 10,000 unit Insulin Aspart (Novolog) 0 unit SC [facility]; Protocol Last Admin: 02/20/18 18:59 Dose: 2 unit Lactulose (Enulose) 20 gm PO DAILY [facility] Last Admin: 02/20/18 09:49 Dose: Not Given Lisinopril (Zestril) 2.5 mg PO DAILY [facility] Metoprolol Tartrate (Lopressor) 12.5 mg PO 0800,1700 [facility] Last Admin: 02/20/18 18:58 Dose: 12.5 mg Risperidone (Risperdal Tab) 0.25 mg PO HS [facility] Last Admin: 02/19/18 21:02 Dose: 0.25 mg - Labs Labs: 02/20/18 06:10 02/20/18 06:10 PT 18.2 SECONDS (9.7-12.2) H 02/20/18 06:10 INR 1.7 02/20/18 06:10 APTT 40 SECONDS (21-34) H 02/20/18 06:10
--- NOTE | 2018-02-20 23:23 | CP.PCM.PN ---
Subjective - Date & Time of Evaluation Date of Evaluation: 02/20/18 Time of Evaluation: 20:00 - Subjective Subjective: Patient reports L knee pain improved; stood to get weight after HD today (for first time since admission); breathing well; Objective - Vital Signs/Intake and Output Vital Signs (last 24 hours): Temp Pulse Resp BP Pulse Ox 97.6 F 71 20 102/63 100 02/20/18 16:22 02/20/18 16:22 02/20/18 16:22 02/20/18 16:22 02/20/18 16:22 Intake and Output: 02/20/18 02/21/18 18:59 06:59 Intake Total 600 Balance 600 - Medications Medications: Current Medications Acetaminophen (Tylenol 325mg Tab) 650 mg PO Q6 PRN PRN Reason: Fever >100.4 F and Pain (4-7) Last Admin: 02/17/18 13:55 Dose: 650 mg Bumetanide (Bumex) 2 mg PO DAILY [facility] Last Admin: 02/20/18 09:49 Dose: Not Given Enoxaparin Sodium (Lovenox) 30 mg SC Q12 [facility] Stop: 02/25/18 23:59 Last Admin: 02/20/18 22:55 Dose: 30 mg Epoetin Carlos A (Procrit) 10,000 unit IV MWF [facility] Last Admin: 02/20/18 10:21 Dose: 10,000 unit Insulin Aspart (Novolog) 0 unit SC [facility]; Protocol Last Admin: 02/20/18 22:55 Dose: Not Given Lactulose (Enulose) 20 gm PO DAILY [facility] Last Admin: 02/20/18 09:49 Dose: Not Given Lisinopril (Zestril) 2.5 mg PO DAILY [facility] Metoprolol Tartrate (Lopressor) 12.5 mg PO 0800,1700 [facility] Last Admin: 02/20/18 18:58 Dose: 12.5 mg Risperidone (Risperdal Tab) 0.25 mg PO HS [facility] Last Admin: 02/20/18 22:55 Dose: 0.25 mg - Labs Labs: 02/20/18 06:10 02/20/18 06:10 PT 18.2 SECONDS (9.7-12.2) H 02/20/18 06:10 INR 1.7 02/20/18 06:10 APTT 40 SECONDS (21-34) H 02/20/18 06:10 - Constitutional Appears: Non-toxic, No Acute Distress - Eye Exam Eye Exam: Normal appearance - Respiratory Exam Respiratory Exam: Clear to Ausculation Bilateral. absent: Respiratory Distress - Cardiovascular Exam Cardiovascular Exam: Irregular Rhythm, Murmur. absent: Gallop, Rubs - GI/Abdominal Exam GI & Abdominal Exam: Soft. absent: Distended, Tenderness - Extremities Exam Additional comments: mild leg edema; - Neurological Exam Neurological Exam: Alert, Awake - Psychiatric Exam Psychiatric exam: Normal Affect, Normal Mood. absent: Agitated - Skin Skin Exam: Warm. absent: Cyanosis Assessment and Plan (1) Hypotension Assessment & Plan: BP at baseline with SBP in 90s-100s; monitor; Status: Resolved (2) Acute renal failure Assessment & Plan: BRANDI on CKD IV; tolerated HD well today with 2L fluid removal; stable electrolye and volume status; next HD for Sunday (outpatient HD already setup); -avoid nephrotoxic agents; Status: Acute (3) CHF (congestive heart failure) Assessment & Plan: Relatively euvolemic on exam; will continue with diuretics and keep stable weights with fluid removal on HD; -continue B-blockers; Status: Chronic (4) Thrombocytopenia Status: Acute (5) Anemia Assessment & Plan: Hgb below goal but stable, continue EPO on HD; Status: Chronic (6) Gout flare Assessment & Plan: Improved with PO prednisone; monitor; Status: Acute
[2018-02-21 06:33] LABS: INR 1.6; PROTHROMBIN TIME 17.1 SECONDS (9.7-12.2)
[2018-02-21] MEDS: (Novolog) Insulin Aspart, Recombinant 100 u/ml 10 ml vial SC SCH ×2 (07:14→12:01)
[2018-02-21] MEDS: Enoxaparin 30 mg Syringe SC SCH (09:16)
--- NOTE | 2018-02-21 13:49 | CP.PCM.PN ---
Subjective - Date & Time of Evaluation Date of Evaluation: 02/21/18 Time of Evaluation: 13:49 - Subjective Subjective: Alert and awake, denies any pain or distress. Objective - Vital Signs/Intake and Output Vital Signs (last 24 hours): Temp Pulse Resp BP Pulse Ox 98.2 F 62 18 103/61 98 02/21/18 07:00 02/21/18 07:00 02/21/18 07:00 02/21/18 07:00 02/21/18 07:00 - Medications Medications: Current Medications Acetaminophen (Tylenol 325mg Tab) 650 mg PO Q6 PRN PRN Reason: Fever >100.4 F and Pain (4-7) Last Admin: 02/17/18 13:55 Dose: 650 mg Bumetanide (Bumex) 2 mg PO DAILY [facility] Last Admin: 02/21/18 09:16 Dose: 2 mg Enoxaparin Sodium (Lovenox) 30 mg SC Q12 [facility] Stop: 02/25/18 23:59 Last Admin: 02/21/18 09:16 Dose: 30 mg Epoetin Carlos A (Procrit) 10,000 unit IV MWF [facility] Last Admin: 02/20/18 10:21 Dose: 10,000 unit Insulin Aspart (Novolog) 0 unit SC [facility]; Protocol Last Admin: 02/21/18 12:01 Dose: Not Given Lactulose (Enulose) 20 gm PO DAILY [facility] Last Admin: 02/21/18 09:16 Dose: 20 gm Lisinopril (Zestril) 2.5 mg PO DAILY [facility] Metoprolol Tartrate (Lopressor) 12.5 mg PO 0800,1700 [facility] Last Admin: 02/21/18 09:16 Dose: 12.5 mg Risperidone (Risperdal Tab) 0.25 mg PO HS [facility] Last Admin: 02/20/18 22:55 Dose: 0.25 mg Warfarin Sodium (Coumadin) 5 mg PO 1800 [facility] Stop: 02/21/18 18:01 - Labs Labs: 02/20/18 06:10 02/20/18 06:10 PT 17.1 SECONDS (9.7-12.2) H 02/21/18 06:19 INR 1.6 02/21/18 06:19 APTT 40 SECONDS (21-34) H 02/20/18 06:10 Assessment and Plan - Assessment and Plan (Free Text) Assessment: Patient is seen and examined, alert, awake, no sob or chest pains. Discussed with DR Moncada and DR Matta, plan to discharge to [facility]] today. Will give coumadin 5 mg today then as adjusted. To be followed up by DR De León his own aws developer in 2 [facility].
[2018-02-21 16:06] VITALS: BP 111/51; PULSE 77; RESP 20; TEMP 97.2; O2SAT 96
--- NOTE | 2018-02-21 17:19 | CP.PCM.PN ---
Subjective - Date & Time of Evaluation Date of Evaluation: 02/21/18 Time of Evaluation: 17:16 - Subjective Subjective: seen and examined comfortable Objective - Vital Signs/Intake and Output Vital Signs (last 24 hours): Temp Pulse Resp BP Pulse Ox 97.2 F L 77 20 111/51 L 96 02/21/18 15:00 02/21/18 15:00 02/21/18 15:00 02/21/18 15:00 02/21/18 15:00 Intake and Output: 02/21/18 02/21/18 06:59 18:59 Intake Total 600 Balance 600 - Medications Medications: Current Medications Acetaminophen (Tylenol 325mg Tab) 650 mg PO Q6 PRN PRN Reason: Fever >100.4 F and Pain (4-7) Last Admin: 02/17/18 13:55 Dose: 650 mg Bumetanide (Bumex) 2 mg PO DAILY [facility] Last Admin: 02/21/18 09:16 Dose: 2 mg Enoxaparin Sodium (Lovenox) 30 mg SC Q12 [facility] Stop: 02/25/18 23:59 Last Admin: 02/21/18 09:16 Dose: 30 mg Epoetin Carlos A (Procrit) 10,000 unit IV MWF [facility] Last Admin: 02/20/18 10:21 Dose: 10,000 unit Insulin Aspart (Novolog) 0 unit SC [facility]; Protocol Last Admin: 02/21/18 12:01 Dose: Not Given Lactulose (Enulose) 20 gm PO DAILY [facility] Last Admin: 02/21/18 09:16 Dose: 20 gm Lisinopril (Zestril) 2.5 mg PO DAILY [facility] Metoprolol Tartrate (Lopressor) 12.5 mg PO 0800,1700 [facility] Last Admin: 02/21/18 09:16 Dose: 12.5 mg Risperidone (Risperdal Tab) 0.25 mg PO HS [facility] Last Admin: 02/20/18 22:55 Dose: 0.25 mg Warfarin Sodium (Coumadin) 5 mg PO 1800 [facility] Stop: 02/21/18 18:01 - Labs Labs: 02/20/18 06:10 02/20/18 06:10 PT 17.1 SECONDS (9.7-12.2) H 02/21/18 06:19 INR 1.6 02/21/18 06:19 APTT 40 SECONDS (21-34) H 02/20/18 06:10 - Constitutional Appears: Non-toxic - Eye Exam Eye Exam: Normal appearance Pupil Exam: NORMAL ACCOMODATION - ENT Exam ENT Exam: Mucous Membranes Moist - Neck Exam Neck Exam: Full ROM - Respiratory Exam Respiratory Exam: NORMAL BREATHING PATTERN - Cardiovascular Exam Cardiovascular Exam: REGULAR RHYTHM - GI/Abdominal Exam GI & Abdominal Exam: Soft - Exam Exam: NORMAL INSPECTION - Extremities Exam Extremities Exam: Normal Inspection - Back Exam Back Exam: NORMAL INSPECTION - Neurological Exam Neurological Exam: Awake, Oriented x3 - Psychiatric Exam Psychiatric exam: Normal Affect - Skin Skin Exam: Normal Color Assessment and Plan - Assessment and Plan (Free Text) Assessment: renal failiur aneamia throbocytopeania generalised weekness Plan: will go to [facility] now cont all med will f.u pt
--- NOTE | 2018-02-21 18:43 | CP.PCM.PN ---
Subjective - Date & Time of Evaluation Date of Evaluation: 02/21/18 Time of Evaluation: 13:00 - Subjective Subjective: Patient tolerating diet, ate half of lunch; breathing well; no joint pain; Objective - Vital Signs/Intake and Output Vital Signs (last 24 hours): Temp Pulse Resp BP Pulse Ox 97.2 F L 77 20 111/51 L 96 02/21/18 15:00 02/21/18 15:00 02/21/18 15:00 02/21/18 15:00 02/21/18 15:00 Intake and Output: 02/21/18 02/21/18 06:59 18:59 Intake Total 600 Balance 600 - Labs Labs: 02/20/18 06:10 02/20/18 06:10 PT 17.1 SECONDS (9.7-12.2) H 02/21/18 06:19 INR 1.6 02/21/18 06:19 APTT 40 SECONDS (21-34) H 02/20/18 06:10 - Constitutional Appears: Non-toxic, No Acute Distress - Eye Exam Eye Exam: Normal appearance - Respiratory Exam Respiratory Exam: Clear to Ausculation Bilateral. absent: Respiratory Distress - Cardiovascular Exam Cardiovascular Exam: Murmur. absent: Gallop, Irregular Rhythm, Rubs - GI/Abdominal Exam GI & Abdominal Exam: Soft. absent: Distended, Tenderness - Extremities Exam Additional comments: mild leg edema b/l - Neurological Exam Neurological Exam: Alert, Awake - Psychiatric Exam Psychiatric exam: Normal Mood. absent: Agitated - Skin Skin Exam: Warm. 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
--- NOTE | 2018-02-21 22:46 | CP.PCM.PN ---
Subjective - Date & Time of Evaluation Date of Evaluation: 02/21/18 Time of Evaluation: 06:30 - Subjective Subjective: Patient seen and evaluated denies chest pain and dyspnea Patient re started on Coumadin after Hemotology clearance Transfer to rehab once INR is therapeutic Watch for bleeding sign Objective - Vital Signs/Intake and Output Vital Signs (last 24 hours): Temp Pulse Resp BP Pulse Ox 97.2 F L 77 20 111/51 L 96 02/21/18 15:00 02/21/18 15:00 02/21/18 15:00 02/21/18 15:00 02/21/18 15:00 Intake and Output: 02/21/18 02/22/18 18:59 06:59 Intake Total 600 Balance 600 - Labs Labs: 02/20/18 06:10 02/20/18 06:10 PT 17.1 SECONDS (9.7-12.2) H 02/21/18 06:19 INR 1.6 02/21/18 06:19 APTT 40 SECONDS (21-34) H 02/20/18 06:10
[2018-02-22 00:26] LABS: ALBUMIN (PEP) 2.5 g/dL (3.8-4.8); ALPHA-1-GLOBULIN (PEP) 0.2 g/dL (0.2-0.3)
--- NOTE | 2018-03-01 12:09 | DS ---
HISTORY OF PRESENT ILLNESS: The patient came to the emergency room, feeling weak, almost passing out, dizziness. He was having lightheaded, especially when he stands. He also takes some dialysis. He came in from [facility]. He has dialysis and this has happened after the dialysis. On arrival, his blood pressure was 88/41, his respiratory rate is 15. He was afebrile and he was a little anxious. He has some cough, history of bronchitis, history of coronary artery disease, and he has cardiac arrhythmia, atrial fibrillation, congestive heart failure, diabetes, gallbladder disease, and he has hyperlipidemia, edema, pneumonia, chronic kidney disease. He also has a pacemaker and status post CABG. The patient's lab showed he has anemia 9.1 and hematocrit 26. His BUN is 79 and creatinine 2.8. His sugar is fine. So, he was admitted and seen by Nephrology and he was seen also by Dr. Moncada, Cardiology. He continued on all his medications and he has seen Dr. Sigala, also Cardiology, for his heart failure. He is on Tylenol, Bumex, Procrit, Novolog, lactulose, lisinopril, metoprolol, Avelox, and risperidone. His congestive heart failure was improving with fluid restriction and management and he was feeling better and gradually, he was able to be discharged on 02/21/2018 because he was able to breath fine. He was having no discomfort. His lab was stable and he was discharged again to [facility] to continue his dialysis there. He has lot of thrombocytopenia, which was replaced by transfusion. FINAL DIAGNOSES: 1. Renal failure. 2. Anemia. 3. Thrombocytopenia. 4. Generalized weakness. 5. The patient on dialysis. Rebecca Matta MD
== END 2018-02-21 17:33 | DRG 682 ==
LOC: C.ER 13:36 → C.6T 15:38
PROVIDERS: ADMIT Internal Medicine; ATTEND Internal Medicine
PROC: 30233R1 Transfusion of Nonautologous Platelets into Peripheral Vein, Percutaneous Approach (ICD-10-PCS; 2018-02-17)
PROC: 5A1D70Z Performance of Urinary Filtration, Intermittent, Less than 6 Hours Per Day (ICD-10-PCS; principal; 2018-02-20)
DX: N17.9 Acute kidney failure, unspecified (principal); I50.23 Acute on chronic systolic (congestive) heart failure; I13.0 Hypertensive heart and chronic kidney disease with heart failure and stage 1 through stage 4 chronic kidney disease, or unspecified chronic kidney disease; I95.3 Hypotension of hemodialysis; N18.4 Chronic kidney disease, stage 4 (severe); I50.82 Biventricular heart failure; I25.10 Atherosclerotic heart disease of native coronary artery without angina pectoris; I48.2 Chronic atrial fibrillation; I27.20 Pulmonary hypertension, unspecified; E78.00 Pure hypercholesterolemia, unspecified; D63.1 Anemia in chronic kidney disease; E11.22 Type 2 diabetes mellitus with diabetic chronic kidney disease; D69.6 Thrombocytopenia, unspecified; M10.9 Gout, unspecified; Z79.01 Long term (current) use of anticoagulants; Z87.01 Personal history of pneumonia (recurrent); Z95.1 Presence of aortocoronary bypass graft; Z99.2 Dependence on renal dialysis

== ENCOUNTER 2018-03-04 20:05 | Inpatient (IN) | payer MEDICARE, OTHER ==
[2018-03-04 20:06] VITALS: PULSE 68; BMI 28.8
--- NOTE | 2018-03-04 20:17 | C.PDOC ---
History Of Present Illness 83 year old male with PMHx of CABG, AFib, DM is sent to the ED from his Care Home for evaluation of elevated INR. Patient goes to dialysis on Sunday, Sunday and Sunday. Patient offers no complaints at this time. Time Seen by Provider: 03/04/18 20:16 History Per: Patient History/Exam Limitations: no limitations Onset/Duration Of Symptoms: Hrs Current Symptoms Are (Timing): Still Present Severity: Moderate Pain Scale Rating Of: 4 Reports Recently: Seen In ED, Treated By A Physician, Hospitalized Recent travel outside of the [place]: No Additional History Per: Patient, Care Home Past Medical History Reviewed: Historical Data, Nursing Documentation, Vital Signs - Medical History PMH: Anxiety, Arthritis, Bronchitis, CAD, Cardia Arrhythmia (AFIB), CHF, Diabetes, Gall Bladder Disease (CHOLECYSTECTOMY), HTN, Hypercholesterolemia, Peripheral Edema (BLE), Pneumonia, Chronic Kidney Disease Denies: Depression Surgical History: CABG, Cholecystectomy (GB Sx: ? removal), Pacemaker (11/30/14) - [facility] Procedures (02/13/18) BED MOBILITY TREATMENT (06/03/16) DRESSING TECHNIQUES TREATMENT USING ASSIST EQUIPMENT (06/03/16) EXERCISE TREATMENT OF MUSCULOSK LOW BACK/LE USING OTH EQUIP (06/03/16) FLUOROSCOPY OF LEFT HEART USING OTHER CONTRAST (05/29/16) FLUOROSCOPY OF MULTIPLE CORONARY ARTERIES USING OTH CONTRAST (05/29/16) GAIT TRAINING/AMBULAT TREATMENT USING ASSIST EQUIPMENT (10/15/17) GROOMING/PERSONAL HYGIENE TREATMENT USING ASSIST EQUIPMENT (06/03/16) HOME MANAGEMENT TREATMENT USING ASSIST EQUIPMENT (04/29/15) INCISION OF PENIS (07/19/14) INSERT INFUSION DEV IN R INT JUGULAR VEIN, PERC (01/13/18) INTRODUCE OF OTH THERAP SUBST INTO RESP TRACT, VIA OPENING (04/26/15) INTRODUCE OF OXAZOLIDINONES INTO PERIPH VEIN, PERC APPROACH (04/26/15) MEASURE OF CARDIAC SAMPL & PRESSURE, L HEART, PERC APPROACH (05/29/16) OCCUPATIONAL THERAPY (07/24/14) PHYSICAL THERAPY NEC (07/24/14) SERUM TRANSFUSION NEC (07/11/12) THERAPEUTIC EXERCISE TREATMENT OF MUSCULOSK WHOLE (10/15/17) TRANSFER TRAINING TREATMENT (06/03/16) TRANSFUSE NONAUT PLATELETS IN PERIPH VEIN, PERC (02/13/18) ULTRASONOGRAPHY OF RIGHT JUGULAR VEINS, GUIDANCE (01/13/18) Family History: States: Unknown Family Hx - Social History Hx Tobacco Use: Yes (QUIT) Hx Alcohol Use: No Hx Substance Use: No - Immunization History Hx Tetanus Toxoid Vaccination: No Hx Influenza Vaccination: No Hx Pneumococcal Vaccination: No Review Of Systems Constitutional: Negative for: Fever, Chills Eyes: Negative for: Vision Change ENT: Negative for: Throat Pain Cardiovascular: Negative for: Chest Pain, Palpitations Respiratory: Negative for: Shortness of Breath Gastrointestinal: Negative for: Nausea, Vomiting, Abdominal Pain Musculoskeletal: Negative for: Back Pain Skin: Negative for: Rash Neurological: Negative for: Weakness, Numbness, Headache, Dizziness Psych: Negative for: Anxiety Physical Exam - Physical Exam Appears: Non-toxic Skin: Warm, Dry, Ecchymosis (diffuse) Head: Normacephalic Eye(s): bilateral: Normal Inspection Oral Mucosa: Moist Neck: Supple Chest: Symmetrical, Other (dialysis port right chest) Cardiovascular: Rhythm Regular Respiratory: No Rales, No Rhonchi, No Wheezing Gastrointestinal/Abdominal: Soft, No Tenderness, No Guarding, No Rebound Back: No CVA Tenderness Extremity: No Tenderness, Pedal Edema Extremity: Bilateral: Atraumatic, Normal Color And Temperature, Normal ROM, Other (pedal edema) Pulses: Left Dorsalis Pedis: Normal, Right Dorsalis Pedis: Normal Neurological/Psych: Oriented x3, Normal Speech, Normal Cognition Gait: Unable To Assess ED Course And Treatment - Laboratory Results Result Diagrams: 03/04/18 20:32 03/04/18 20:32 ECG: Interpreted By Me, Viewed By Me ECG Rhythm: Sinus Rhythm (70), Nonspecific Changes O2 Sat by Pulse Oximetry: 99 (ON RA) Pulse Ox Interpretation: Normal - Radiology CXR: Interpreted by Me, Viewed By Me CXR Interpretation: Yes: Cardiomegaly, Other (cabg, hc port r chest). No: Infiltrates, Fracture Progress Note: Plan: - Labs. - VBG. - CXR. - Influenza A B Disposition Discussed With : Rebecca Matta Comment: accepted the pt on his service and took over the care at 9:17PM Doctor Will See Patient In The: Hospital Counseled Patient/Family Regarding: Studies Performed, Diagnosis - Disposition Disposition: HOSPITALIZED Disposition Time: 20:17 Condition: FAIR - POA Present On Arrival: Poor Glycemic Control - Clinical Impression Clinical Impression: Pedal edema, Coagulopathy, ESRD (end stage renal disease) on dialysis, Thrombocytopenia - Scribe Statement The provider has reviewed the documentation as recorded by the Scribe Kvng Loredo All medical record entries made by the Scribe were at my direction and personally dictated by me. I have reviewed the chart and agree that the record accurately reflects my personal performance of the history, physical exam, medical decision making, and the department course for this patient. I have also personally directed, reviewed, and agree with the discharge instructions and disposition. Decision To Admit - Pt Status Changed To: Hospital Disposition Of: Inpatient - Admit Certification Admit to Inpatient:: After my assessment, the patient will require hospitalization for at least two midnights. This is because of the severity of symptoms shown, intensity of services needed, and/or the medical risk in this patient being treated as an outpatient. - InPatient: Physician Admission Certification: I certify that this patient requires 2 or more midnights of care for the following reason:: After my assessment, the patient will require hospitalization for at least two midnights. This is because of the severity of symptoms shown, intensity of services needed, and/or the medical risk in this patient being treated as an outpatient. - . Bed Request Type: Regular Admitting Physician: Rebecca Matta Patient Diagnosis: Pedal edema, Coagulopathy, ESRD (end stage renal disease) on dialysis, Thrombocytopenia
[2018-03-04 20:36] LABS: BASO % 0.3 % (0.0-2.0); EOS # 0.1 K/uL (0.0-0.7); EOS % 0.5 % (0.0-4.0); HEMOGLOBIN 9.6 g/dL (12.0-18.0); LYMPH # 0.6 K/uL (1.0-4.3); LYMPH % 5.8 % (20.0-40.0); MEAN CORPUSCULAR HEMOGLOBIN 36.3 pg (27.0-31.0); MEAN CORPUSCULAR HGB CONC 33.3 g/dL (33.0-37.0); MEAN PLATELET VOLUME 15.7 fL (7.2-11.7); MONO % 9.8 % (0.0-10.0); NEUT # 8.4 K/uL (1.8-7.0); NEUT % 83.6 % (50.0-75.0); NRBC % 0.1 % (0.0-2.0); RBC 2.65 Mil/uL (4.40-5.90); RED CELL DISTRIBUTION WIDTH 18.2 % (11.5-14.5)
[2018-03-04 20:50] LABS: PLATELET COUNT 76 K/uL (130-400)
[2018-03-04 20:52] LABS: ALBUMIN 3.1 g/dL (3.5-5.0); CALCIUM 7.9 mg/dl (8.6-10.4)
[2018-03-04 21:04] LABS: VENOUS BLOOD GAS BASE EXCESS 3.4 mmol/L (0.0-2.0); VENOUS BLOOD GAS PCO2 44 mmHg (40-60); VENOUS BLOOD GAS PO2 41 mm/Hg (30-55); VENOUS BLOOD PH 7.42 (7.32-7.43)
[2018-03-04 21:07] LABS: INR 8.2; PROTHROMBIN TIME 90.4 SECONDS (9.7-12.2)
[2018-03-04] MEDS ORDERED: Phytonadione 2.5 MG/0.5 TAB TAB PO STA (21:10)
[2018-03-04 21:11] LABS: LYMPHOCYTE 6 % (20-40); MONOCYTE 12 % (0-10); NEUTROPHIL 82 % (50-75); TOTAL CELLS COUNTED 100
[2018-03-04 21:12] LABS: ANISOCYTOSIS SLIGHT; BURR CELLS SLIGHT; HYPOCHROMIC SLIGHT; MICROCYTOSIS SLIGHT; OVALOCYTES SLIGHT; PLATELET ESTIMATE DECREASED (NORMAL); POIKILOCYTOSIS SLIGHT; TARGET CELLS SLIGHT; TEARDROP CELLS SLIGHT
[2018-03-05 08:50] LABS: ALB/GLOB RATIO 1.1 (1.0-2.1); ALBUMIN 3.3 g/dL (3.5-5.0); CALCIUM 8.3 mg/dl (8.6-10.4)
[2018-03-05 08:53] LABS: BASO % 0.7 % (0.0-2.0); NRBC % 0.1 % (0.0-2.0); RED CELL DISTRIBUTION WIDTH 18.4 % (11.5-14.5)
[2018-03-05 09:00] LABS: EOS # 0.1 K/uL (0.0-0.7); EOS % 2.4 % (0.0-4.0); HEMOGLOBIN 8.7 g/dL (12.0-18.0); LYMPH # 0.6 K/uL (1.0-4.3); LYMPH % 10.2 % (20.0-40.0); MEAN CELL VOLUME 110.1 fL (80.0-94.0); MEAN CORPUSCULAR HGB CONC 32.7 g/dL (33.0-37.0); MEAN PLATELET VOLUME 9.1 fL (7.2-11.7); NEUT # 3.7 K/uL (1.8-7.0); NEUT % 67.7 % (50.0-75.0); RBC 2.41 Mil/uL (4.40-5.90); WHITE BLOOD COUNT 5.4 K/uL (4.8-10.8)
[2018-03-05 09:08] LABS: INR 2.7; PROTHROMBIN TIME 29.2 SECONDS (9.7-12.2)
[2018-03-05 09:47] LABS: BILIRUBIN,DIRECT 0.9 mg/dL (0.0-0.4)
--- NOTE | 2018-03-05 10:55 | RAD ---
Chest x-ray single frontal view HISTORY: Shortness of breath. COMPARISON: 02/13/2018 Findings: Persistent small to moderate loculated left pleural effusion. Venous congestion. Status post median sternotomy and CABG. Right central venous catheter with tip extending into the right atrium. Degenerative changes in the spine and shoulders. Impression: Persistent small to moderate loculated left pleural effusion. Venous congestion. Status post median sternotomy and CABG. Right central venous catheter with tip extending into the right atrium.
--- NOTE | 2018-03-05 11:19 | US ---
HISTORY: R/O GALLSTONES ELEVATED BILI COMPARISON: Noncontrast CT of the abdomen and pelvis performed 12/29/17 TECHNIQUE: Sonographic evaluation of the abdomen. FINDINGS: Examination markedly limited by habitus and bowel gas. LIVER: Measures 14.2 cm in sagittal dimension. Echogenic liver may be seen in setting of hepatic parenchymal disease or fatty infiltration. Nodular hepatic contour. No focal hepatic mass identified. The main portal vein appears patent with normal directional flow. No intrahepatic bile duct dilatation. Ascites. GALLBLADDER: Not visualized. COMMON BILE DUCT: Measures 8 mm. PANCREAS: Not well visualized. RIGHT KIDNEY: Measures 9.4 x 4.1 x 4.6 cm. No hydronephrosis or obstructing calculus. 3.7 x 1.9 x 3.4 cm cyst. LEFT KIDNEY: Measures 7.2 x 4.1 x 3.8 cm. No hydronephrosis or obstructing calculus. 1.3 x 1.0 x 1.5 cm cyst versus prominent renal pelvis. SPLEEN: Not visualized. AORTA: Not visualized. IVC: Not visualized. OTHER FINDINGS: Incidental note is made of right-sided pleural effusion. IMPRESSION: Markedly limited study. Echogenic liver may be seen in setting of hepatic parenchymal disease or fatty infiltration. Nodular hepatic contour consistent with cirrhosis. Correlate clinically. Small ascites. 3.7 x 1.9 x 3.4 cm right renal cyst. 1.3 x 1.0 x 1.5 cm left renal cyst versus prominent renal pelvis.
--- NOTE | 2018-03-05 11:26 | CP.PCM.HP ---
History of Present Illness - History of Present Illness History of Present Illness: pt had bleeding mouth and inr was 9 was transfered to emergency room Present on Admission - Present on Admission Any Indicators Present on Admission: Yes Review of Systems - Review of Systems Systems not reviewed;Unavailable: Acuity of Condition - Constitutional Constitutional: Fatigue - EENT Eyes: As Per HPI Ears: As Per HPI Nose/Mouth/Throat: As Per HPI - Cardiovascular Cardiovascular: Dyspnea Additional comments: s/p cabge at fib [facility] - Respiratory Respiratory: Dyspnea on Exertion - Gastrointestinal Gastrointestinal: As Per HPI, Constipation - Genitourinary Genitourinary: As Per HPI - Reproductive: Male Reproductive:Male: As Per HPI - Integumentary Integumentary: As Per HPI - Neurological Neurological: As Per HPI - Psychiatric Psychiatric: Anxiety, Depression - Endocrine Additional Comments: DM - Hematologic/Lymphatic Additional comments: THROMBOCYTOPEANIA ANEAMIA Past Patient History - Infectious Disease Hx of Infectious Diseases: None - Tetanus Immunizations Tetanus Immunization: Unknown - Past Medical History & Family History Past Medical History?: Yes - Past Social History Smoking Status: Never Smoked - CARDIAC Hx Cardia Arrhythmia: Yes (AFIB) Hx Congestive Heart Failure: Yes Hx Hypercholesterolemia: Yes Hx Hypertension: Yes Hx Pacemaker: Yes (11/30/14) Hx Peripheral Edema: Yes (BLE) - PULMONARY Hx Bronchitis: Yes Hx Pneumonia: Yes - NEUROLOGICAL Hx Neurological Disorder: (DENIES HISTORY) - HEENT Hx HEENT Problems: Yes Hx Cataracts: Yes (Left) Hx Glaucoma: Yes (Right) - RENAL Hx Chronic Kidney Disease: Yes - ENDOCRINE/METABOLIC Hx Diabetes Mellitus Type 2: Yes - HEMATOLOGICAL/ONCOLOGICAL Hx Blood Disorders: Yes - INTEGUMENTARY Hx Dermatological Problems: (DENIES HISTORY) - MUSCULOSKELETAL/RHEUMATOLOGICAL Hx Arthritis: Yes - GASTROINTESTINAL Hx Gall Bladder Disease: Yes (CHOLECYSTECTOMY) - GENITOURINARY/GYNECOLOGICAL Hx Genitourinary Disorders: No - PSYCHIATRIC Hx Anxiety: Yes Hx Depression: No Hx Substance Use: No - SURGICAL HISTORY Hx Cholecystectomy: Yes (GB Sx: ? removal) Hx Coronary Artery Bypass Graft: Yes - ANESTHESIA Hx Anesthesia: Yes Hx Anesthesia Reactions: Yes Hx Malignant Hyperthermia: No Meds Allergies/Adverse Reactions: Allergies Allergy/AdvReac Type Severity Reaction Status Date / Time aspirin Allergy RASH Verified 03/04/18 20:24 Latex, Natural Rubber Allergy RASH Verified 03/04/18 20:24 Penicillins Allergy ANAPHYLAXIS Verified 03/04/18 20:24 Physical Exam - Constitutional Appears: Non-toxic - Head Exam Head Exam: ATRAUMATIC - Eye Exam Eye Exam: Normal appearance Pupil Exam: NORMAL ACCOMODATION - ENT Exam ENT Exam: Mucous Membranes Moist - Neck Exam Neck exam: Positive for: Full Rom - Respiratory Exam Respiratory Exam: Clear to Auscultation Bilateral - Cardiovascular Exam Cardiovascular Exam: Irregular Rhythm - GI/Abdominal Exam GI & Abdominal Exam: Normal Bowel Sounds, Soft - Rectal Exam Rectal Exam: NORMAL INSPECTION - Exam Exam: NORMAL INSPECTION - Extremities Exam Extremities exam: Positive for: normal inspection - Back Exam Back exam: NORMAL INSPECTION - Neurological Exam Neurological exam: Alert, Oriented x3 - Psychiatric Exam Psychiatric exam: Normal Affect - Skin Skin Exam: Pallor Results - Vital Signs Recent Vital Signs: Last Vital Signs Temp 98.1 F 03/05/18 07:12 Pulse 74 03/05/18 10:57 Resp 18 03/05/18 10:57 BP 118/53 L 03/05/18 10:57 Pulse Ox 100 03/05/18 10:57 - Labs Result Diagrams: 03/05/18 08:46 03/05/18 08:18 Labs: Laboratory Results - last 24 hr 03/04/18 03/04/18 03/04/18 20:32 20:32 20:46 WBC 10.0 RBC 2.65 L Hgb 9.6 L Hct 28.9 L MCV 109.0 H MCH 36.3 H MCHC 33.3 RDW 18.2 H Plt Count 76 L MPV 15.7 H Neut % (Auto) 83.6 H Lymph % (Auto) 5.8 L [place] % (Auto) 9.8 Eos % (Auto) 0.5 Baso % (Auto) 0.3 Neut # (Auto) 8.4 H Lymph # (Auto) 0.6 L [place] # (Auto) 1.0 H Eos # (Auto) 0.1 Baso # (Auto) 0.0 Neutrophils % (Manual) 82 H Lymphocytes % (Manual) 6 L Monocytes % (Manual) 12 H Differential Comment Platelet Estimate Decreased L Hypochromasia (manual) Slight Poikilocytosis (manual Slight Anisocytosis (manual) Slight Microcytosis (manual) Slight Macrocytosis (manual) Slight Target Cells Slight Tear Drop Cells Slight Ovalocytes Slight [place] Cells Slight PT INR APTT Fibrinogen pO2 VBG pH VBG pCO2 VBG HCO3 VBG Total CO2 VBG O2 Sat (Calc) VBG Base Excess VBG Potassium Glucose Lactate Sodium 134 Potassium 4.5 Chloride 98 Carbon Dioxide 30 Anion Gap 11 BUN 46 H Creatinine 1.7 H Est GFR ( Amer) 47 Est GFR (Non-Af Amer) 39 Random Glucose 116 H Calcium 7.9 L Total Bilirubin 2.1 H Direct Bilirubin AST 57 ALT 64 Alkaline Phosphatase 138 H Total Protein 6.2 L Albumin 3.1 L Globulin 3.1 Albumin/Globulin Ratio 1.0 Venous Blood Potassium Influenza Typ A,B (EIA) Negative for flu a/b Blood Type Antibody Screen 03/04/18 03/04/18 03/04/18 20:46 20:46 21:02 WBC RBC Hgb Hct MCV MCH MCHC RDW Plt Count MPV Neut % (Auto) Lymph % (Auto) [place] % (Auto) Eos % (Auto) Baso % (Auto) Neut # (Auto) Lymph # (Auto) [place] # (Auto) Eos # (Auto) Baso # (Auto) Neutrophils % (Manual) Lymphocytes % (Manual) Monocytes % (Manual) Differential Comment Platelet Estimate Hypochromasia (manual) Poikilocytosis (manual Anisocytosis (manual) Microcytosis (manual) Macrocytosis (manual) Target Cells Tear Drop Cells Ovalocytes Rajeev Cells PT 90.4 H INR 8.2 H* APTT 70 H Fibrinogen pO2 41 VBG pH 7.42 VBG pCO2 44 VBG HCO3 27.0 VBG Total CO2 29.9 H VBG O2 Sat (Calc) 79.2 H VBG Base Excess 3.4 H VBG Potassium 3.8 Glucose 103 Lactate 2.1 Sodium 140.0 Potassium Chloride 107.0 Carbon Dioxide Anion Gap BUN Creatinine Est GFR ( Amer) Est GFR (Non-Af Amer) Random Glucose Calcium Total Bilirubin Direct Bilirubin AST ALT Alkaline Phosphatase Total Protein Albumin Globulin Albumin/Globulin Ratio Venous Blood Potassium 3.8 Influenza Typ A,B (EIA) Blood Type O POSITIVE Antibody Screen Negative 03/05/18 03/05/18 03/05/18 08:18 08:46 08:46 WBC 5.4 RBC 2.41 L Hgb 8.7 L Hct 26.6 L MCV 110.1 H MCH 36.0 H MCHC 32.7 L RDW 18.4 H Plt Count 23 L* D MPV 9.1 Neut % (Auto) 67.7 Lymph % (Auto) 10.2 L [place] % (Auto) 19.0 H Eos % (Auto) 2.4 Baso % (Auto) 0.7 Neut # (Auto) 3.7 Lymph # (Auto) 0.6 L [place] # (Auto) 1.0 H Eos # (Auto) 0.1 Baso # (Auto) 0.0 Neutrophils % (Manual) Lymphocytes % (Manual) Monocytes % (Manual) Differential Comment Platelet Estimate Hypochromasia (manual) Poikilocytosis (manual Anisocytosis (manual) Microcytosis (manual) Macrocytosis (manual) Target Cells Tear Drop Cells Ovalocytes Rajeev Cells PT 29.2 H D INR 2.7 D APTT 51 H D Fibrinogen 188 L pO2 VBG pH VBG pCO2 VBG HCO3 VBG Total CO2 VBG O2 Sat (Calc) VBG Base Excess VBG Potassium Glucose Lactate Sodium 137 Potassium 4.2 Chloride 99 Carbon Dioxide 30 Anion Gap 12 BUN 50 H Creatinine 2.0 H Est GFR ( Amer) 39 Est GFR (Non-Af Amer) 32 Random Glucose 101 Calcium 8.3 L Total Bilirubin 2.4 H Direct Bilirubin 0.9 H AST 41 ALT 59 Alkaline Phosphatase 110 Total Protein 6.4 Albumin 3.3 L Globulin 3.0 Albumin/Globulin Ratio 1.1 Venous Blood Potassium Influenza Typ A,B (EIA) Blood Type Antibody Screen Assessment & Plan - Assessment and Plan (Free Text) Assessment: AC THROMBOCYTOPEANIA ANEAMIA HI INR AT [facility] S/P OPEN HT SURGERY ESRF ON DIALYSIS HTN Plan: ADMIT AND PER ORDERS - Date & Time Date: 03/05/18 Time: 11:31
--- NOTE | 2018-03-05 13:20 | CP.PCM.CON ---
History of Present Illness - History of Present Illness History of Present Illness: 83 year old male with PMHx of CABG, AFib, DM is sent to the ED from his Skilled Nursing for evaluation of elevated INR and severe thrombocytopenia. Patient goes to dialysis on Sunday, Sunday and Sunday due to CKD IV and refractory volume overloasd despite improvement in EF. He has been on HD for about 1-2 months. He has been on coumadin for P.AFIB. He has had chronic thrombocytopenia 100s since 02/2017 and now gradually progressed to severe. He had echo in 09/2017 suggesting severe BIV dysfunction with mod-sev PULM HTN and recent echo 01/2018 suggests interim improvement with EF 35-40% with mod-sev PULM HTN, dilated LA, RV and Grade 3 restrictive diastolic dysfunction. PMH: Anxiety, Arthritis, Bronchitis, CAD, Cardia Arrhythmia (AFIB), CHF, Diabetes, Gall Bladder Disease (CHOLECYSTECTOMY), HTN, Hypercholesterolemia, P eripheral Edema (BLE), Pneumonia, Chronic Kidney Disease on HD Surgical History: CABG, Cholecystectomy (GB Sx: ? removal), Pacemaker (11/30/14) Currently feels fine only trace edema in legs clear lungs A&O x3 No CP, fevers, chills, N/V Review of Systems - Review of Systems All systems: reviewed and no additional remarkable complaints except Past Patient History - Infectious Disease Hx of Infectious Diseases: None - Tetanus Immunizations Tetanus Immunization: Unknown - Past Medical History & Family History Past Medical History?: Yes - Past Social History Smoking Status: Never Smoked - CARDIAC Hx Cardia Arrhythmia: Yes (AFIB) Hx Congestive Heart Failure: Yes Hx Hypercholesterolemia: Yes Hx Hypertension: Yes Hx Pacemaker: Yes (11/30/14) Hx Peripheral Edema: Yes (BLE) - PULMONARY Hx Bronchitis: Yes Hx Pneumonia: Yes - NEUROLOGICAL Hx Neurological Disorder: (DENIES HISTORY) - HEENT Hx HEENT Problems: Yes Hx Cataracts: Yes (Left) Hx Glaucoma: Yes (Right) - RENAL Hx Chronic Kidney Disease: Yes - ENDOCRINE/METABOLIC Hx Diabetes Mellitus Type 2: Yes - HEMATOLOGICAL/ONCOLOGICAL Hx Blood Disorders: Yes - INTEGUMENTARY Hx Dermatological Problems: (DENIES HISTORY) - MUSCULOSKELETAL/RHEUMATOLOGICAL Hx Arthritis: Yes - GASTROINTESTINAL Hx Gall Bladder Disease: Yes (CHOLECYSTECTOMY) - GENITOURINARY/GYNECOLOGICAL Hx Genitourinary Disorders: No - PSYCHIATRIC Hx Anxiety: Yes Hx Depression: No Hx Substance Use: No - SURGICAL HISTORY Hx Cholecystectomy: Yes (GB Sx: ? removal) Hx Coronary Artery Bypass Graft: Yes - ANESTHESIA Hx Anesthesia: Yes Hx Anesthesia Reactions: Yes Hx Malignant Hyperthermia: No Meds Allergies/Adverse Reactions: Allergies Allergy/AdvReac Type Severity Reaction Status Date / Time aspirin Allergy RASH Verified 03/04/18 20:24 Latex, Natural Rubber Allergy RASH Verified 03/04/18 20:24 Penicillins Allergy ANAPHYLAXIS Verified 03/04/18 20:24 - Medications Medications: Current Medications Bumetanide (Bumex) 2 mg PO BID [facility] Metoprolol Tartrate (Lopressor) 12.5 mg PO 0800,1700 [facility] Sitagliptin Phosphate (Januvia) 25 mg PO DAILY [facility] Physical Exam - Constitutional Appears: Older Than Stated Age, Chronically Ill - Head Exam Head Exam: ATRAUMATIC, NORMAL INSPECTION, NORMOCEPHALIC - Eye Exam Eye Exam: EOMI, Normal appearance. absent: Scleral icterus - ENT Exam ENT Exam: Mucous Membranes Moist, Normal Oropharynx - Neck Exam Neck exam: Positive for: Full Rom, Normal Inspection. Negative for: Tenderness - Respiratory Exam Respiratory Exam: Clear to Auscultation Bilateral. absent: Rales, Rhonchi, Wheezes - Cardiovascular Exam Cardiovascular Exam: Irregular Rhythm, +S1, +S2. absent: Gallop, Systolic Murmur Additional comments: R. chest permcath for HD - GI/Abdominal Exam GI & Abdominal Exam: Normal Bowel Sounds, Soft, Tenderness Additional comments: abdominal wall echymosis - Extremities Exam Extremities exam: Positive for: normal inspection, pedal edema, pedal pulses present. Negative for: calf tenderness, tenderness - Neurological Exam Neurological exam: Alert, Oriented x3 - Psychiatric Exam Psychiatric exam: Normal Affect, Normal Mood - Skin Skin Exam: Normal Color, Warm Results - Vital Signs Recent Vital Signs: Last Vital Signs Temp 98.1 F 03/05/18 11:13 Pulse 71 03/05/18 11:13 Resp 18 03/05/18 11:13 BP 114/59 L 03/05/18 11:13 Pulse Ox 100 03/05/18 11:13 - Labs Result Diagrams: 03/06/18 06:32 03/06/18 06:32 Labs: Laboratory Results - last 24 hr 03/04/18 03/04/18 03/04/18 20:32 20:32 20:46 WBC 10.0 RBC 2.65 L Hgb 9.6 L Hct 28.9 L MCV 109.0 H MCH 36.3 H MCHC 33.3 RDW 18.2 H Plt Count 76 L MPV 15.7 H Neut % (Auto) 83.6 H Lymph % (Auto) 5.8 L [place] % (Auto) 9.8 Eos % (Auto) 0.5 Baso % (Auto) 0.3 Neut # (Auto) 8.4 H Lymph # (Auto) 0.6 L [place] # (Auto) 1.0 H Eos # (Auto) 0.1 Baso # (Auto) 0.0 Neutrophils % (Manual) 82 H Lymphocytes % (Manual) 6 L Monocytes % (Manual) 12 H Differential Comment Platelet Estimate Decreased L Hypochromasia (manual) Slight Poikilocytosis (manual Slight Anisocytosis (manual) Slight Microcytosis (manual) Slight Macrocytosis (manual) Slight Target Cells Slight Tear Drop Cells Slight Ovalocytes Slight [place] Cells Slight PT INR APTT Fibrinogen pO2 VBG pH VBG pCO2 VBG HCO3 VBG Total CO2 VBG O2 Sat (Calc) VBG Base Excess VBG Potassium Glucose Lactate Sodium 134 Potassium 4.5 Chloride 98 Carbon Dioxide 30 Anion Gap 11 BUN 46 H Creatinine 1.7 H Est GFR ( Amer) 47 Est GFR (Non-Af Amer) 39 Random Glucose 116 H Calcium 7.9 L Total Bilirubin 2.1 H Direct Bilirubin AST 57 ALT 64 Alkaline Phosphatase 138 H Total Protein 6.2 L Albumin 3.1 L Globulin 3.1 Albumin/Globulin Ratio 1.0 Venous Blood Potassium Influenza Typ A,B (EIA) Negative for flu a/b Blood Type Antibody Screen 03/04/18 03/04/18 03/04/18 20:46 20:46 21:02 WBC RBC Hgb Hct MCV MCH MCHC RDW Plt Count MPV Neut % (Auto) Lymph % (Auto) [place] % (Auto) Eos % (Auto) Baso % (Auto) Neut # (Auto) Lymph # (Auto) [place] # (Auto) Eos # (Auto) Baso # (Auto) Neutrophils % (Manual) Lymphocytes % (Manual) Monocytes % (Manual) Differential Comment Platelet Estimate Hypochromasia (manual) Poikilocytosis (manual Anisocytosis (manual) Microcytosis (manual) Macrocytosis (manual) Target Cells Tear Drop Cells Ovalocytes Rajeev Cells PT 90.4 H INR 8.2 H* APTT 70 H Fibrinogen pO2 41 VBG pH 7.42 VBG pCO2 44 VBG HCO3 27.0 VBG Total CO2 29.9 H VBG O2 Sat (Calc) 79.2 H VBG Base Excess 3.4 H VBG Potassium 3.8 Glucose 103 Lactate 2.1 Sodium 140.0 Potassium Chloride 107.0 Carbon Dioxide Anion Gap BUN Creatinine Est GFR ( Amer) Est GFR (Non-Af Amer) Random Glucose Calcium Total Bilirubin Direct Bilirubin AST ALT Alkaline Phosphatase Total Protein Albumin Globulin Albumin/Globulin Ratio Venous Blood Potassium 3.8 Influenza Typ A,B (EIA) Blood Type O POSITIVE Antibody Screen Negative 03/05/18 03/05/18 03/05/18 08:18 08:46 08:46 WBC 5.4 RBC 2.41 L Hgb 8.7 L Hct 26.6 L MCV 110.1 H MCH 36.0 H MCHC 32.7 L RDW 18.4 H Plt Count 23 L* D MPV 9.1 Neut % (Auto) 67.7 Lymph % (Auto) 10.2 L [place] % (Auto) 19.0 H Eos % (Auto) 2.4 Baso % (Auto) 0.7 Neut # (Auto) 3.7 Lymph # (Auto) 0.6 L [place] # (Auto) 1.0 H Eos # (Auto) 0.1 Baso # (Auto) 0.0 Neutrophils % (Manual) Lymphocytes % (Manual) Monocytes % (Manual) Differential Comment Platelet Estimate Hypochromasia (manual) Poikilocytosis (manual Anisocytosis (manual) Microcytosis (manual) Macrocytosis (manual) Target Cells Tear Drop Cells Ovalocytes [place] Cells PT 29.2 H D INR 2.7 D APTT 51 H D Fibrinogen 188 L pO2 VBG pH VBG pCO2 VBG HCO3 VBG Total CO2 VBG O2 Sat (Calc) VBG Base Excess VBG Potassium Glucose Lactate Sodium 137 Potassium 4.2 Chloride 99 Carbon Dioxide 30 Anion Gap 12 BUN 50 H Creatinine 2.0 H Est GFR ( Amer) 39 Est GFR (Non-Af Amer) 32 Random Glucose 101 Calcium 8.3 L Total Bilirubin 2.4 H Direct Bilirubin 0.9 H AST 41 ALT 59 Alkaline Phosphatase 110 Total Protein 6.4 Albumin 3.3 L Globulin 3.0 Albumin/Globulin Ratio 1.1 Venous Blood Potassium Influenza Typ A,B (EIA) Blood Type Antibody Screen Assessment & Plan - Assessment and Plan (Free Text) Assessment: Imaging directly viewed by me: > EKG: AFIB, rate 74, non-specific ST changes lateral > CXR: mild congestion, CABG sternotmy wires, mild congestion, R. IJ catheter, L. pleural effusion Impression: > CAD with moderate systolic dysfunction (in addition, RV dysfunction, mod-sev PHTN, restricitve diastolic dysfunction) > Hx CABG Patient has had interval improvement on serial echo from 09/2017 to 01/2018 to 35-40% with markely enlarged LA, restricitive diastolic physiology and mod-sev PULM HTN PASP 50-60mmhg. He has improved clinically with volume maintainence via HD: Continue CHF therapy with long acting betablocker: I suggest change to coreg and titrate as tolerated Given CKD: and that he is on HD NENA-I or ARB and low dose aldactone would be optimal treatment if this can be added. Keep Mg >2.0 >AFIB - rate controlled - coagulopthy with thrombocytopenia - There are scattered echymosis but no gross bleeding - H/H around 9 - I feel given inability to maintain safe INR range: eliquis 2.5 BID is a reas onable option for afib stroke prophylaxis. Defer to heme given concomitant thrombocytopenia. > CKD and HD dependent - cont HD to maintain volume - monitor lytes and K+ > Severe thrombocytopenia - - I feel given inability to maintain safe INR range: eliquis 2.5 BID is a reasonable option for afib stroke prophylaxis. Defer to heme given concomitant thrombocytopenia.
[2018-03-05] MEDS: (Novolog) Insulin Aspart, Recombinant 100 u/ml 10 ml vial SC SCH ×2 (17:33→22:18)
[2018-03-05] MEDS: Albuterol-Ipratrop 3 mg / 0.5 (3 ml) UD INH SCH (19:40)
[2018-03-06] MEDS: Albuterol-Ipratrop 3 mg / 0.5 (3 ml) UD INH SCH ×4 (01:10→20:15)
[2018-03-06] MEDS: (Novolog) Insulin Aspart, Recombinant 100 u/ml 10 ml vial SC SCH ×4 (06:44→21:32)
[2018-03-06 06:49] LABS: INR 1.9; PROTHROMBIN TIME 20.7 SECONDS (9.7-12.2)
--- NOTE | 2018-03-06 07:11 | CON ---
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 Nephrology being consulted for renal insufficiency. The patient had outpatient INR draw 2 days ago, which resulted with INR being above 9. The patient has multiple ecchymosis all over his body; was also having superficial bleeding from subcutaneous insulin injections. The patient otherwise had been doing well in rehab facility, able to ambulate distance of hallway using walker, urinating well. Denies any shortness of breath. Has been noted to be more edematous lately. PAST MEDICAL HISTORY: As above. The patient was initiated on dialysis as acute renal failure in 12/2017 after presenting to [facility] with severely decompensated CHF and anasarca; history of CABG with four-vessel bypass, status post AICD; gout with recent flare. SOCIAL HISTORY: Never smoked. REVIEW OF SYSTEMS: CONSTITUTIONAL: Good appetite. No anorexia. HEENT: No dysphagia. RESPIRATORY: Reporting some cough. CARDIOVASCULAR: As per HPI. GASTROINTESTINAL: No nausea, vomiting, or diarrhea. GENITOURINARY: No dysuria. MUSCULOSKELETAL: Coming off recent gout flare, treated with p.o. prednisone taper, affecting left knee most prominently. SKIN: Multiple ecchymosis all over body. NEUROLOGIC: No dizziness. PHYSICAL EXAMINATION: VITAL SIGNS: This afternoon, blood pressure 119/61, heart rate 74, respirations 20, temperature 98.2, and O2 saturation 99% on room air. GENERAL: No distress. Conversing coherently in full sentences. HEENT: Moist mucous membranes. Nonicteric. Elevated JVD. RESPIRATORY: Lungs, clear to auscultation bilaterally. CARDIOVASCULAR: No tachycardia. No obvious rubs or gallops. GASTROINTESTINAL: Abdomen, soft, nontender, nondistended. EXTREMITIES: Moderate leg edema extended to thighs bilaterally. GENITOURINARY: No bladder distention. SKIN: Warm. No cyanosis. PSYCHIATRIC: Normal mood. Normal affect. NEUROLOGIC: No obvious resting tremor. LABORATORY DATA: CBC: WBC 5.4, hemoglobin 8.7, hematocrit 26.6, and platelets 23. Chemistry panel: Sodium 137, potassium 4.2, chloride 99, bicarbonate 30, BUN 50, creatinine 2, glucose 101, calcium 8.3. T-bili 2.4, albumin 3.3. INR 2.7 decreasing from 8.2. Chest x-ray, directly visualized, showing some increased vascular congestion. ASSESSMENT AND PLAN: 1. Acute kidney injury on chronic kidney disease stage 3B/4, nonoliguric renal failure, initiated on dialysis in order to maintain adequate volume status, not yet deemed end-stage renal disease, but we will need to make decision soon. The patient is still with significant edema, although much improved from initial presentation with decompensated congestive heart failure two months ago. We will continue dialysis three days per week with goal of reducing venous congestion and attempting to achieve euvolemia. We will obtain 24-hour urine for creatinine clearance. Should avoid nephrotoxic agents (especially nonsteroidal anti-inflammatory drugs as they will blunt any renal autoregulation ability). 2. Congestive heart failure with severe systolic function on echocardiogram done 5 months ago, did show some improvement in left ventricular function; on echocardiogram last month, still with elevated right-sided pressures. We will continue dialysis as above with ultrafiltration goal of approximately 2 liters to try to get him down to his previous estimated dry weight of 81 kg. Continue diuretics with p.o. Bumex 2 mg b.i.d. Continue beta blockers per Cardiology. 3. Anemia due to chronic disease as well as chronic kidney disease. We will continue with Epogen on dialysis (had been receiving Aranesp during outpatient dialysis session). 4. Coagulopathy. The patient with severely elevated INR, possibly reflective of liver dysfunction as total bilirubin is also elevated (may be due to congestive hepatopathy). Cardiology being consulted to assess for another anticoagulation agent. We will follow. 5. 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 We will monitor phosphate and place on binders if needed. Thank you for this referral. We will be following closely. Terence Mcnamara MD
[2018-03-06 07:30] LABS: CALCIUM 8.2 mg/dl (8.6-10.4); URIC ACID 7.5 mg/dL (3.5-8.5)
[2018-03-06 07:49] LABS: BASO # 0.1 K/uL (0.0-0.2); BASO % 0.8 % (0.0-2.0); EOS # 0.1 K/uL (0.0-0.7); EOS % 1.1 % (0.0-4.0); HEMOGLOBIN 9.2 g/dL (12.0-18.0); LYMPH # 0.6 K/uL (1.0-4.3); LYMPH % 9.3 % (20.0-40.0); MEAN CORPUSCULAR HGB CONC 33.4 g/dL (33.0-37.0); MEAN PLATELET VOLUME 9.7 fL (7.2-11.7); MONO # 1.2 K/uL (0.0-0.8); MONO % 17.6 % (0.0-10.0); NEUT # 4.8 K/uL (1.8-7.0); NEUT % 71.2 % (50.0-75.0); NRBC % 0.1 % (0.0-2.0); PLATELET COUNT 35 K/uL (130-400); RBC 2.55 Mil/uL (4.40-5.90); RED CELL DISTRIBUTION WIDTH 18.5 % (11.5-14.5); WHITE BLOOD COUNT 6.8 K/uL (4.8-10.8)
[2018-03-06 07:50] LABS: MEAN CELL VOLUME 107.8 fL (80.0-94.0)
[2018-03-06 08:19] LABS: LYMPHOCYTE 7 % (20-40); MONOCYTE 18 % (0-10); NEUTROPHIL 75 % (50-75); TOTAL CELLS COUNTED 100
[2018-03-06 08:20] LABS: ANISOCYTOSIS SLIGHT; HYPOCHROMIC SLIGHT; MICROCYTOSIS SLIGHT; PLATELET ESTIMATE DECREASED (NORMAL); POIKILOCYTOSIS SLIGHT
[2018-03-06 08:21] LABS: OVALOCYTES SLIGHT; TEARDROP CELLS SLIGHT
[2018-03-06 08:22] LABS: BURR CELLS SLIGHT; LARGE PLATELETS PRESENT
--- NOTE | 2018-03-06 08:24 | CP.PCM.PN ---
Subjective - Date & Time of Evaluation Date of Evaluation: 03/06/18 Time of Evaluation: 08:23 - Subjective Subjective: Chief complaint: Patient admitted to the hospital with the very highly elevated INR level and also bleeding. Patient is a 82-year-old male with a history of ischemic cardiomyopathy, history of quadruple bypass in the past History of AICD Hypertension Diabetes Chronic kidney disease History of gout. History of dilated cardiomyopathy. Patient was started on hemodialysis because of the fluid overload worsening renal insufficiency Patient has a history of allergic to aspirin, latex, penicillin Home medications: uloric Colchicine Januvia Risperdal Isosorbide Colace Atorvastatin Xanax Coumadin Metoprolol Losartan And Lasix Social history patient used to be a smoker in the past. Denies any alcohol. Patient lives with the family. But for the last 2 months the patient is rehabilitation, receiving hemodialysis. On examination: Patient is alert and awake. He is comfortable. He is complaining of some pain in the lower back area. He has no other major active systemic symptoms except weakness, he is mostly bedridden at this time. He has is unstageable sacral decubiti also On examination: Vital signs otherwise stable. His blood pressure still on the low side. I discussed with the track layer about his overall condition. There is a hard time in removing enough fluid from his, during the dialysis because of the low blood pressure. He is also having significant problem in controlling the INR secondary to overall poor prognosis and also unable to keep the Coumadin level proper. I discussed with the patient family yesterday in detail. Family requested me for covering him as a PMD in the hospital. We will discuss with the business process associate about the alternative to Coumadin. He will be getting the hemodialysis today. Patient has a left shoulder pain. Possibly secondary to gout at this time. We will continue the current treatment. Will discuss with the family. And will follow the patient. Today INR level is subtherapeutic I do is I will discussed with the cardiology regarding the anticoagulation of choice. Objective - Vital Signs/Intake and Output Vital Signs (last 24 hours): Temp Pulse Resp BP Pulse Ox 98.6 F 75 20 109/64 96 03/05/18 23:15 03/06/18 07:58 03/05/18 23:15 03/05/18 23:15 03/05/18 23:15 Intake and Output: 03/06/18 03/06/18 06:59 18:59 Output Total 300 Balance -300 - Medications Medications: Current Medications Acetaminophen (Tylenol 325mg Tab) 650 mg PO Q6 PRN PRN Reason: Fever >100.4 F and Pain (4-7) Albuterol/Ipratropium (Duoneb 3 Mg/0.5 Mg (3 Ml) Ud) 3 ml INH RQ6 [facility] Last Admin: 03/06/18 01:10 Dose: 3 ml Alprazolam (Xanax) 0.25 mg PO DAILY PRN PRN Reason: Anxiety Stop: 03/13/18 10:01 Bumetanide (Bumex) 2 mg PO BID [facility] Last Admin: 03/05/18 18:29 Dose: 2 mg Epoetin Carlos A (Procrit) 10,000 unit IV F [facility] Insulin Aspart (Novolog) 0 unit SC [facility]; Protocol Last Admin: 03/06/18 06:44 Dose: Not Given Lactulose (Enulose) 20 gm PO DAILY [facility] Metoprolol Tartrate (Lopressor) 12.5 mg PO 0800,1700 [facility] Last Admin: 03/05/18 18:30 Dose: 12.5 mg Risperidone (Risperdal Tab) 0.25 mg PO HS [facility] Last Admin: 03/05/18 21:35 Dose: 0.25 mg Sitagliptin Phosphate (Januvia) 25 mg PO DAILY [facility] Last Admin: 03/05/18 13:42 Dose: 25 mg Zinc Sulfate (Zinc Sulfate 220 Mg Cap) 220 mg PO DAILY [facility] - Labs Labs: 03/06/18 06:32 03/06/18 06:32 PT 20.7 SECONDS (9.7-12.2) H D 03/06/18 06:32 INR 1.9 D 03/06/18 06:32 APTT 41 SECONDS (21-34) H D 03/06/18 06:32
--- NOTE | 2018-03-06 10:23 | CP.PCM.PN ---
<Jose Villeda - Last Filed: 03/06/18 14:36> Subjective - Date & Time of Evaluation Date of Evaluation: 03/06/18 Time of Evaluation: 07:00 - Subjective Subjective: Nephrology Progress Note: Pt seen and examined at bedside. No acute events overnight. Pt complains of some vague L upper extremity pain/ shoulder pain. Denies any other complaints. 12 Point ROS performed and neg other than stated above. Objective - Vital Signs/Intake and Output Vital Signs (last 24 hours): Temp Pulse Resp BP Pulse Ox 98.1 F 75 20 133/78 99 03/06/18 07:00 03/06/18 09:13 03/06/18 07:00 03/06/18 07:00 03/06/18 07:00 Intake and Output: 03/06/18 03/06/18 06:59 18:59 Output Total 300 Balance -300 - Medications Medications: Current Medications Acetaminophen (Tylenol 325mg Tab) 650 mg PO Q6 PRN PRN Reason: Fever >100.4 F and Pain (4-7) Albuterol/Ipratropium (Duoneb 3 Mg/0.5 Mg (3 Ml) Ud) 3 ml INH RQ6 [facility] Last Admin: 03/06/18 07:30 Dose: 3 ml Alprazolam (Xanax) 0.25 mg PO DAILY PRN PRN Reason: Anxiety Stop: 03/13/18 10:01 Bumetanide (Bumex) 2 mg PO BID [facility] Last Admin: 03/06/18 09:20 Dose: 2 mg Epoetin Carlos A (Procrit) 10,000 unit IV [facility] Insulin Aspart (Novolog) 0 unit SC [facility]; Protocol Last Admin: 03/06/18 06:44 Dose: Not Given Lactulose (Enulose) 20 gm PO DAILY [facility] Last Admin: 03/06/18 09:20 Dose: 20 gm Metoprolol Tartrate (Lopressor) 12.5 mg PO 0800,1700 [facility] Last Admin: 03/05/18 18:30 Dose: 12.5 mg Risperidone (Risperdal Tab) 0.25 mg PO HS [facility] Last Admin: 03/05/18 21:35 Dose: 0.25 mg Sitagliptin Phosphate (Januvia) 25 mg PO DAILY [facility] Last Admin: 03/06/18 09:20 Dose: 25 mg Zinc Sulfate (Zinc Sulfate 220 Mg Cap) 220 mg PO DAILY [facility] Last Admin: 03/06/18 09:20 Dose: 220 mg - Labs Labs: 03/06/18 06:32 03/06/18 06:32 PT 20.7 SECONDS (9.7-12.2) H D 03/06/18 06:32 INR 1.9 D 03/06/18 06:32 APTT 41 SECONDS (21-34) H D 03/06/18 06:32 - Constitutional Appears: No Acute Distress - Head Exam Head Exam: ATRAUMATIC, NORMOCEPHALIC - Eye Exam Eye Exam: EOMI - ENT Exam ENT Exam: Mucous Membranes Moist - Cardiovascular Exam Cardiovascular Exam: REGULAR RHYTHM, +S1, +S2 - GI/Abdominal Exam GI & Abdominal Exam: Soft, Normal Bowel Sounds - Extremities Exam Extremities Exam: absent: Calf Tenderness, Pedal Edema - Neurological Exam Neurological Exam: Alert, Awake, Oriented x3 - Psychiatric Exam Psychiatric exam: Normal Affect, Normal Mood - Skin Skin Exam: Dry, Normal Color, Warm Assessment and Plan - Assessment and Plan (Free Text) Assessment: 83 M with PMHx of CABG, Afib on coumadin, Ischemic cardiomyopathy, 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 - As per patient, last HD on Sunday. Plan on HD on /Sun/Sun - goal to reduce venous congestion and maintain euvolemia - f/u 24 hour urine creatinine clearance - Avoid nephrotoxic medications - CHF with severe systolic dys - Cont Bumex 2mg BID - Increased metoprolol to 25mg BID - Anemia -Cont Epogen with dialysis - Elevated INR now resolved - INR today 1.9 subtherapeutic - cardiology consulted forpossible change in anticoagulation - Monitor for electrolyte abnormalities Case and plan was reviewed and discussed with Dr Mcnamara. <Terence Mcnamara - Last Filed: 03/07/18 06:27> Objective - Vital Signs/Intake and Output Vital Signs (last 24 hours): Temp Pulse Resp BP Pulse Ox 98.3 F 78 20 103/61 97 03/06/18 23:15 03/06/18 23:15 03/06/18 23:15 03/06/18 23:15 03/06/18 23:15 - Medications Medications: Current Medications Acetaminophen (Tylenol 325mg Tab) 650 mg PO Q6 PRN PRN Reason: Fever >100.4 F and Pain (4-7) Last Admin: 03/06/18 18:26 Dose: 650 mg Albuterol/Ipratropium (Duoneb 3 Mg/0.5 Mg (3 Ml) Ud) 3 ml INH RQ6 [facility] Last Admin: 03/07/18 03:13 Dose: 3 ml Alprazolam (Xanax) 0.25 mg PO DAILY PRN PRN Reason: Anxiety Stop: 03/13/18 10:01 Bumetanide (Bumex) 2 mg PO BID [facility] Last Admin: 03/06/18 18:24 Dose: 2 mg Epoetin Carlos A (Procrit) 10,000 unit IV [facility] Last Admin: 03/06/18 16:18 Dose: 10,000 unit Heparin Sodium (Porcine) (Heparin) 3,900 units IVP [facility] Insulin Aspart (Novolog) 0 unit SC [facility]; Protocol Last Admin: 03/06/18 21:32 Dose: Not Given Lactulose (Enulose) 20 gm PO DAILY [facility] Last Admin: 03/06/18 09:20 Dose: 20 gm Metoprolol Tartrate (Lopressor) 25 mg PO 0800,1700 [facility] Last Admin: 03/06/18 18:23 Dose: 25 mg Risperidone (Risperdal Tab) 0.25 mg PO HS [facility] Last Admin: 03/06/18 21:31 Dose: 0.25 mg Sitagliptin Phosphate (Januvia) 25 mg PO DAILY [facility] Last Admin: 03/06/18 09:20 Dose: 25 mg Zinc Sulfate (Zinc Sulfate 220 Mg Cap) 220 mg PO DAILY [facility] Last Admin: 03/06/18 09:20 Dose: 220 mg - Labs Labs: 03/06/18 06:32 03/06/18 14:15 PT 20.7 SECONDS (9.7-12.2) H D 03/06/18 06:32 INR 1.9 D 03/06/18 06:32 APTT 41 SECONDS (21-34) H D 03/06/18 06:32 Attending/Attestation - Attestation I have personally seen and examined this patient.: Yes I have fully participated in the care of the patient.: Yes I have reviewed all pertinent clinical information, including history, physical exam and plan: Yes Notes (Text): Patient seen and examined; I agree with the resident's note as above with the following additions/edits: Patient with dm, CHF w/ severe systolic/biventricular failure, aifb on coumadin, severe thrombocytopenia and BRANDI on CKD IIIB/IV, admitted with coagulopathy (INR > 9); Patient seen before HD session today; complaining of new L shoulder pain; warm to touch and very tender; history of frequent gout flares, most recently affecting L knee and treated just last week with prednisone taper; Still with mild bilateral leg edema, improved; stable respiratory status despite CXR findings showing increased venous congestion; 24 hour urine with volume of ~1L, CrCl 20 ml/min; question of whether this is sufficient to withdraw HD support (initially started to maintain volume status in the setting of severe CHF); given that patient is already on high dose of diuretic (bumex 1 mg bid) a nd only making ~1L urine daily, we will continue HD for now on MWF schedule; Patient with robust BP today, better than what we have seen in several months; will keep on metoprolol 25 mg bid; Anemia likely multifactorial with concomitant severe thrombocytopenia, will continue EPO on HD (had been receiving it per outpatient HD protocol but will discuss with heme); -HD today with 2L net UF goal; -Avoid nephrotoxic agents (need to preserve residual renal function); -Giving single dose of prednisone 40 mg for yet another gout flare; cannot give NSAIDS and can only give limited colchicine dosing due to renal failure;
--- NOTE | 2018-03-06 11:48 | CP.PCM.CON ---
Past Patient History - Infectious Disease Hx of Infectious Diseases: None - Tetanus Immunizations Tetanus Immunization: Unknown - Past Medical History & Family History Past Medical History?: Yes - Past Social History Smoking Status: Never Smoked - CARDIAC Hx Cardia Arrhythmia: Yes (AFIB) Hx Congestive Heart Failure: Yes Hx Hypercholesterolemia: Yes Hx Hypertension: Yes Hx Pacemaker: Yes (11/30/14) Hx Peripheral Edema: Yes (BLE) - PULMONARY Hx Bronchitis: Yes Hx Pneumonia: Yes - NEUROLOGICAL Hx Neurological Disorder: (DENIES HISTORY) - HEENT Hx HEENT Problems: Yes Hx Cataracts: Yes (Left) Hx Glaucoma: Yes (Right) - RENAL Hx Chronic Kidney Disease: Yes - ENDOCRINE/METABOLIC Hx Diabetes Mellitus Type 2: Yes - HEMATOLOGICAL/ONCOLOGICAL Hx Blood Disorders: Yes - INTEGUMENTARY Hx Dermatological Problems: (DENIES HISTORY) - MUSCULOSKELETAL/RHEUMATOLOGICAL Hx Arthritis: Yes - GASTROINTESTINAL Hx Gall Bladder Disease: Yes (CHOLECYSTECTOMY) - GENITOURINARY/GYNECOLOGICAL Hx Genitourinary Disorders: No - PSYCHIATRIC Hx Anxiety: Yes Hx Depression: No Hx Substance Use: No - SURGICAL HISTORY Hx Cholecystectomy: Yes (GB Sx: ? removal) Hx Coronary Artery Bypass Graft: Yes - ANESTHESIA Hx Anesthesia: Yes Hx Anesthesia Reactions: Yes Hx Malignant Hyperthermia: No Meds Allergies/Adverse Reactions: Allergies Allergy/AdvReac Type Severity Reaction Status Date / Time aspirin Allergy RASH Verified 03/04/18 20:24 Latex, Natural Rubber Allergy RASH Verified 03/04/18 20:24 Penicillins Allergy ANAPHYLAXIS Verified 03/04/18 20:24 - Medications Medications: Current Medications Acetaminophen (Tylenol 325mg Tab) 650 mg PO Q6 PRN PRN Reason: Fever >100.4 F and Pain (4-7) Albuterol/Ipratropium (Duoneb 3 Mg/0.5 Mg (3 Ml) Ud) 3 ml INH RQ6 [facility] Last Admin: 03/06/18 07:30 Dose: 3 ml Alprazolam (Xanax) 0.25 mg PO DAILY PRN PRN Reason: Anxiety Stop: 03/13/18 10:01 Bumetanide (Bumex) 2 mg PO BID [facility] Last Admin: 03/06/18 09:20 Dose: 2 mg Epoetin Carlos A (Procrit) 10,000 unit IV MWF [facility] Insulin Aspart (Novolog) 0 unit SC [facility]; Protocol Last Admin: 03/06/18 06:44 Dose: Not Given Lactulose (Enulose) 20 gm PO DAILY [facility] Last Admin: 03/06/18 09:20 Dose: 20 gm Metoprolol Tartrate (Lopressor) 12.5 mg PO 0800,1700 [facility] Last Admin: 03/05/18 18:30 Dose: 12.5 mg Risperidone (Risperdal Tab) 0.25 mg PO HS [facility] Last Admin: 03/05/18 21:35 Dose: 0.25 mg Sitagliptin Phosphate (Januvia) 25 mg PO DAILY [facility] Last Admin: 03/06/18 09:20 Dose: 25 mg Zinc Sulfate (Zinc Sulfate 220 Mg Cap) 220 mg PO DAILY [facility] Last Admin: 03/06/18 09:20 Dose: 220 mg Results - Vital Signs Recent Vital Signs: Last Vital Signs Temp 98.1 F 03/06/18 07:00 Pulse 75 03/06/18 09:13 Resp 20 03/06/18 07:00 BP 133/78 03/06/18 07:00 Pulse Ox 99 03/06/18 07:00 - Labs Result Diagrams: 03/06/18 06:32 03/06/18 06:32 Labs: Laboratory Results - last 24 hr 03/05/18 03/05/18 03/06/18 16:39 21:24 06:14 WBC RBC Hgb Hct MCV MCH MCHC RDW Plt Count MPV Neut % (Auto) Lymph % (Auto) [place] % (Auto) Eos % (Auto) Baso % (Auto) Neut # (Auto) Lymph # (Auto) [place] # (Auto) Eos # (Auto) Baso # (Auto) Neutrophils % (Manual) Lymphocytes % (Manual) Monocytes % (Manual) Platelet Estimate Large Platelets Hypochromasia (manual) Poikilocytosis (manual Anisocytosis (manual) Microcytosis (manual) Tear Drop Cells Ovalocytes Rajeev Cells PT INR APTT Sodium Potassium Chloride Carbon Dioxide Anion Gap BUN Creatinine Est GFR ( Amer) Est GFR (Non-Af Amer) POC Glucose (mg/dL) 134 H 192 H 103 Random Glucose Uric Acid Calcium Phosphorus Magnesium Total Bilirubin AST ALT Alkaline Phosphatase Ammonia NT-Pro-B Natriuret Pep Total Protein Albumin Globulin Albumin/Globulin Ratio 03/06/18 03/06/18 03/06/18 06:32 06:32 06:32 WBC 6.8 RBC 2.55 L Hgb 9.2 L Hct 27.5 L MCV 107.8 H D MCH 36.0 H MCHC 33.4 RDW 18.5 H Plt Count 35 L MPV 9.7 Neut % (Auto) 71.2 Lymph % (Auto) 9.3 L [place] % (Auto) 17.6 H Eos % (Auto) 1.1 Baso % (Auto) 0.8 Neut # (Auto) 4.8 Lymph # (Auto) 0.6 L [place] # (Auto) 1.2 H Eos # (Auto) 0.1 Baso # (Auto) 0.1 Neutrophils % (Manual) 75 Lymphocytes % (Manual) 7 L Monocytes % (Manual) 18 H Platelet Estimate Decreased L Large Platelets Present Hypochromasia (manual) Slight Poikilocytosis (manual Slight Anisocytosis (manual) Slight Microcytosis (manual) Slight Tear Drop Cells Slight Ovalocytes Slight [place] Cells Slight PT 20.7 H D INR 1.9 D APTT 41 H D Sodium 134 Potassium 3.6 Chloride 96 L Carbon Dioxide 31 H Anion Gap 11 BUN 60 H Creatinine 2.3 H Est GFR ( Amer) 33 Est GFR (Non-Af Amer) 27 POC Glucose (mg/dL) Random Glucose 105 Uric Acid 7.5 Calcium 8.2 L Phosphorus 3.2 Magnesium 1.6 Total Bilirubin 2.5 H AST 33 ALT 49 Alkaline Phosphatase 91 Ammonia NT-Pro-B Natriuret Pep 4940 H Total Protein 6.0 L Albumin 3.0 L Globulin 3.0 Albumin/Globulin Ratio 1.0 03/06/18 06:32 WBC RBC Hgb Hct MCV MCH MCHC RDW Plt Count MPV Neut % (Auto) Lymph % (Auto) [place] % (Auto) Eos % (Auto) Baso % (Auto) Neut # (Auto) Lymph # (Auto) [place] # (Auto) Eos # (Auto) Baso # (Auto) Neutrophils % (Manual) Lymphocytes % (Manual) Monocytes % (Manual) Platelet Estimate Large Platelets Hypochromasia (manual) Poikilocytosis (manual Anisocytosis (manual) Microcytosis (manual) Tear Drop Cells Ovalocytes Rajeev Cells PT INR APTT Sodium Potassium Chloride Carbon Dioxide Anion Gap BUN Creatinine Est GFR ( Amer) Est GFR (Non-Af Amer) POC Glucose (mg/dL) Random Glucose Uric Acid Calcium Phosphorus Magnesium Total Bilirubin AST ALT Alkaline Phosphatase Ammonia 17 NT-Pro-B Natriuret Pep Total Protein Albumin Globulin Albumin/Globulin Ratio
[2018-03-06] MEDS: Epoetin Alfa 10,000 unit/ml Dialysis IV SCH (16:18)
[2018-03-06] MEDS ORDERED: Potassium Chloride 20 mEq/15 ml LIQ UD PO ONE (17:24)
[2018-03-07] MEDS: Albuterol-Ipratrop 3 mg / 0.5 (3 ml) UD INH SCH ×4 (03:13→20:29)
[2018-03-07] MEDS ORDERED: Lidocaine 1% Inj (20ml) INFIL ONE ×2 (07:23)
[2018-03-07] MEDS: (Novolog) Insulin Aspart, Recombinant 100 u/ml 10 ml vial SC SCH ×4 (08:59→21:56)
--- NOTE | 2018-03-07 11:14 | CP.PCM.PN ---
<Jose Villeda - Last Filed: 03/07/18 12:27> Subjective - Date & Time of Evaluation Date of Evaluation: 03/07/18 Time of Evaluation: 08:20 - Subjective Subjective: Nephrology Progress Note: Pt seen and examined at bedside. No acute events overnight. Pt states his L upper extremity pain/ shoulder pain has improved. No other complaints. 12 Point ROS performed and neg other than stated above. Objective - Vital Signs/Intake and Output Vital Signs (last 24 hours): Temp Pulse Resp BP Pulse Ox 97.8 F 88 20 112/63 98 03/07/18 07:36 03/07/18 07:36 03/07/18 07:36 03/07/18 08:59 03/07/18 07:36 - Medications Medications: Current Medications Acetaminophen (Tylenol 325mg Tab) 650 mg PO Q6 PRN PRN Reason: Fever >100.4 F and Pain (4-7) Last Admin: 03/06/18 18:26 Dose: 650 mg Albuterol/Ipratropium (Duoneb 3 Mg/0.5 Mg (3 Ml) Ud) 3 ml INH RQ6 [facility] Last Admin: 03/07/18 07:30 Dose: Not Given Alprazolam (Xanax) 0.25 mg PO DAILY PRN PRN Reason: Anxiety Stop: 03/13/18 10:01 Bumetanide (Bumex) 2 mg PO BID [facility] Last Admin: 03/07/18 09:36 Dose: 2 mg Epoetin Carlos A (Procrit) 10,[address] [facility] Last Admin: 03/06/18 16:18 Dose: 10,000 unit Heparin Sodium (Porcine) (Heparin) 3,[address] [facility] Insulin Aspart (Novolog) 0 unit SC [facility]; Protocol Last Admin: 03/07/18 08:59 Dose: 1 unit Lactulose (Enulose) 20 gm PO DAILY [facility] Last Admin: 03/07/18 09:37 Dose: 20 gm Metolazone (Zaroxolyn) 5 mg PO [facility] Metoprolol Tartrate (Lopressor) 25 mg PO 0800,1700 [facility] Last Admin: 03/07/18 08:59 Dose: 25 mg Risperidone (Risperdal Tab) 0.25 mg PO HS [facility] Last Admin: 03/06/18 21:31 Dose: 0.25 mg Sitagliptin Phosphate (Januvia) 25 mg PO DAILY [facility] Last Admin: 03/07/18 09:36 Dose: 25 mg Zinc Sulfate (Zinc Sulfate 220 Mg Cap) 220 mg PO DAILY [facility] Last Admin: 03/07/18 09:36 Dose: 220 mg - Labs Labs: 03/06/18 06:32 03/06/18 14:15 PT 20.7 SECONDS (9.7-12.2) H D 03/06/18 06:32 INR 1.9 D 03/06/18 06:32 APTT 41 SECONDS (21-34) H D 03/06/18 06:32 - Constitutional Appears: No Acute Distress - Head Exam Head Exam: ATRAUMATIC, NORMOCEPHALIC - Eye Exam Eye Exam: EOMI - ENT Exam ENT Exam: Mucous Membranes Moist - Respiratory Exam Respiratory Exam: Clear to Ausculation Bilateral - Cardiovascular Exam Cardiovascular Exam: REGULAR RHYTHM, +S1, +S2 - GI/Abdominal Exam GI & Abdominal Exam: Soft, Normal Bowel Sounds - Extremities Exam Extremities Exam: absent: Calf Tenderness, Joint Swelling, Pedal Edema, Tenderness - Neurological Exam Neurological Exam: Alert, Awake, Oriented x3 - Psychiatric Exam Psychiatric exam: Normal Mood - Skin Skin Exam: Dry, Warm Assessment and Plan - Assessment and Plan (Free Text) Assessment: 83 M with PMHx of CABG, Afib on coumadin, CHF w/ severe systolic/biventricular failure, 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 - Last HD on yesterday. Next HD will be tomorrow - 24 hour urine creatinine clearance was CrCl 20 ml/min - Will cont with HD as patient on diuretic and only has a uo 1L/day - Avoid nephrotoxic medications - Heme/onc - possible BM biopsy today - f/u cardiology and heme/onc regarding anticoagulation - CHF with severe systolic dys - Cont Bumex 2mg BID, started on Metolazone - Cont metoprolol to 25mg BID - Anemia -Cont Epogen with dialysis - Elevated INR now resolved - INR today 1.9 subtherapeutic - cardiology c onsulted for possible change in anticoagulation - Monitor for electrolyte abnormalities - s/p 1 dose of prednisone 40mg for gout flare, pain much improved, will cont to monitor Case and plan was reviewed and discussed with Dr Mcnamara. <Terence Mcnamara - Last Filed: 03/08/18 08:48> Objective - Vital Signs/Intake and Output Vital Signs (last 24 hours): Temp Pulse Resp BP Pulse Ox 98.1 F 79 20 117/54 L 97 03/07/18 23:15 03/07/18 23:15 03/07/18 23:15 03/07/18 23:15 03/07/18 23:15 Intake and Output: 03/08/18 03/08/18 06:59 18:59 Intake Total 400 Output Total 900 Balance -500 - Medications Medications: Current Medications Acetaminophen (Tylenol 325mg Tab) 650 mg PO Q6 PRN PRN Reason: Fever >100.4 F and Pain (4-7) Last Admin: 03/06/18 18:26 Dose: 650 mg Albuterol/Ipratropium (Duoneb 3 Mg/0.5 Mg (3 Ml) Ud) 3 ml INH RQ6 [facility] Last Admin: 03/08/18 01:59 Dose: 3 ml Alprazolam (Xanax) 0.25 mg PO DAILY PRN PRN Reason: Anxiety Stop: 03/13/18 10:01 Bumetanide (Bumex) 2 mg PO BID [facility] Last Admin: 03/07/18 17:51 Dose: 2 mg Epoetin Carlos A (Procrit) 10,[address] [facility] Last Admin: 03/06/18 16:18 Dose: 10,000 unit Heparin Sodium (Porcine) (Heparin) 3,[address] [facility] Insulin Aspart (Novolog) 0 unit SC [facility]; Protocol Last Admin: 03/08/18 08:18 Dose: Not Given Lactulose (Enulose) 20 gm PO DAILY [facility] Last Admin: 03/07/18 09:37 Dose: 20 gm Metolazone (Zaroxolyn) 5 mg PO TTS [facility] Last Admin: 03/07/18 12:23 Dose: 5 mg Metoprolol Tartrate (Lopressor) 25 mg PO 0800,1700 [facility] Last Admin: 03/07/18 17:51 Dose: 25 mg Risperidone (Risperdal Tab) 0.25 mg PO HS [facility] Last Admin: 03/07/18 21:56 Dose: 0.25 mg Sitagliptin Phosphate (Januvia) 25 mg PO DAILY [facility] Last Admin: 03/07/18 09:36 Dose: 25 mg Zinc Sulfate (Zinc Sulfate 220 Mg Cap) 220 mg PO DAILY [facility] Last Admin: 03/07/18 09:36 Dose: 220 mg - Labs Labs: 03/07/18 13:56 03/07/18 13:56 PT 17.4 SECONDS (9.7-12.2) H 03/07/18 13:56 INR 1.6 03/07/18 13:56 APTT 39 SECONDS (21-34) H 03/07/18 13:56 Attending/Attestation - Attestation I have personally seen and examined this patient.: Yes I have fully participated in the care of the patient.: Yes I have reviewed all pertinent clinical information, including history, physical exam and plan: Yes Notes (Text): Patient seen and examined; I agree with the resident's note as above with the following additions/edits: Patient with severe CHF w/ biventricular dysfunction, afib on coumadin, severe thrombocytopenia, and BRANDI on CKD IIIB/IV, admitted with coagulopathy; Relatively stable volume status; only making ~1L urine daily despite being on aggressive diuretic regimen; therefore, we will continue HD to maintain volume status despite CrCl of 20 ml/min; also restarting metolazone 5 mg on non-HD days; continue B-blockers; will add NENA inhibitor/aldactone per cardio rec if BP remains stable; Awaiting hematology workup for thrombocytopenia as well as their decision to change anti-coagulation agent for afib; Gout flare improved after single dose of prednisone, will monitor closely; -Next HD for tomorrow, will target 2L net UF; -Keep K ~4.0 given cardiomyopathy and afib;
--- NOTE | 2018-03-07 11:42 | CON ---
DATE: 03/07/2018 HEMATOLOGY CONSULTATION HISTORY OF PRESENT ILLNESS: This is an 83-year-old man who has multiple medical problems including heart failure, anemia, and he is on anticoagulation medications. He was brought back in the hospital for an INR that was 8 and this has come down now and been resolved on his Coumadin. However, the patient also has a platelet count low and hemoglobin low, and when I saw him last in the hospital last admission 2 or 3 weeks ago, we noticed that his monocytes and lymphocytes were elevated. We did a flow cytometry at that time and it did not show a result, an abnormality of a lymphoproliferative disorder, but that was our suspicion and I still think that way and we want to rule out a lymphoproliferative disorder. PHYSICAL EXAMINATION: SKIN: No petechia. No bruises. HEENT: Anicteric. NODES: Nonpalpable in the axillary, cervical, and supraclavicular regions. LUNGS: Clear at present. No vertebral tenderness. HEART: S1 and S2. ABDOMEN: Shows no liver. No spleen. No tenderness. No rebound. No ascites. EXTREMITIES: Some trace edema. HEALTH PLAN ADVISOR: No focal findings. The patient really does not understand what is going on. He told me to speak to the daughter. I will see if I can get hold of the daughter and see if I can do a bone marrow aspiration biopsy today or tomorrow prior to him going back home again, and so I will try and talk her today. Tony Bhat MD
[2018-03-07] MEDS: metOLazone 5 MG TAB PO SCH (12:23)
--- NOTE | 2018-03-07 12:36 | CP.PCM.PN ---
Subjective - Date & Time of Evaluation Date of Evaluation: 03/07/18 Time of Evaluation: 12:33 - Subjective Subjective: Now cardiac complaints afebrile No volume overload No N/V INR 1.9 yesterday Objective - Vital Signs/Intake and Output Vital Signs (last 24 hours): Temp Pulse Resp BP Pulse Ox 97.8 F 88 20 112/63 98 03/07/18 07:36 03/07/18 07:36 03/07/18 07:36 03/07/18 08:59 03/07/18 07:36 - Medications Medications: Current Medications Acetaminophen (Tylenol 325mg Tab) 650 mg PO Q6 PRN PRN Reason: Fever >100.4 F and Pain (4-7) Last Admin: 03/06/18 18:26 Dose: 650 mg Albuterol/Ipratropium (Duoneb 3 Mg/0.5 Mg (3 Ml) Ud) 3 ml INH RQ6 [facility] Last Admin: 03/07/18 07:30 Dose: Not Given Alprazolam (Xanax) 0.25 mg PO DAILY PRN PRN Reason: Anxiety Stop: 03/13/18 10:01 Bumetanide (Bumex) 2 mg PO BID [facility] Last Admin: 03/07/18 09:36 Dose: 2 mg Epoetin Carlos A (Procrit) 10,000 unit IV [facility] Last Admin: 03/06/18 16:18 Dose: 10,000 unit Heparin Sodium (Porcine) (Heparin) 3,900 units IVP [facility] Insulin Aspart (Novolog) 0 unit SC [facility]; Protocol Last Admin: 03/07/18 12:23 Dose: 1 unit Lactulose (Enulose) 20 gm PO DAILY [facility] Last Admin: 03/07/18 09:37 Dose: 20 gm Metolazone (Zaroxolyn) 5 mg PO TTS [facility] Last Admin: 03/07/18 12:23 Dose: 5 mg Metoprolol Tartrate (Lopressor) 25 mg PO 0800,1700 [facility] Last Admin: 03/07/18 08:59 Dose: 25 mg Risperidone (Risperdal Tab) 0.25 mg PO HS [facility] Last Admin: 03/06/18 21:31 Dose: 0.25 mg Sitagliptin Phosphate (Januvia) 25 mg PO DAILY [facility] Last Admin: 03/07/18 09:36 Dose: 25 mg Zinc Sulfate (Zinc Sulfate 220 Mg Cap) 220 mg PO DAILY [facility] Last Admin: 03/07/18 09:36 Dose: 220 mg - Labs Labs: 03/06/18 06:32 03/06/18 14:15 PT 20.7 SECONDS (9.7-12.2) H D 03/06/18 06:32 INR 1.9 D 03/06/18 06:32 APTT 41 SECONDS (21-34) H D 03/06/18 06:32 - Constitutional Appears: No Acute Distress, Older Than Stated Age - Head Exam Head Exam: ATRAUMATIC, NORMAL INSPECTION, NORMOCEPHALIC - Eye Exam Eye Exam: EOMI, Normal appearance. absent: Scleral icterus - ENT Exam ENT Exam: Mucous Membranes Moist, Normal Oropharynx - Neck Exam Neck Exam: Full ROM, Normal Inspection. absent: Tenderness - Respiratory Exam Respiratory Exam: Clear to Ausculation Bilateral, NORMAL BREATHING PATTERN. absent: Rhonchi, Wheezes - Cardiovascular Exam Cardiovascular Exam: Irregular Rhythm, +S1, +S2. absent: Murmur - GI/Abdominal Exam GI & Abdominal Exam: Soft, Normal Bowel Sounds. absent: Tenderness - Extremities Exam Extremities Exam: Normal Inspection. absent: Calf Tenderness - Neurological Exam Neurological Exam: Alert, Awake, Oriented x3 - Skin Skin Exam: Normal Color, Warm Assessment and Plan - Assessment and Plan (Free Text) Assessment: Imaging directly viewed by me: > EKG: AFIB, rate 74, non-specific ST changes lateral > CXR: mild congestion, CABG sternotmy wires, mild congestion, R. IJ catheter, L. pleural effusion Impression: > CAD with moderate systolic dysfunction (in addition, RV dysfunction, mod-sev PHTN, restricitve diastolic dysfunction) > Hx CABG Patient has had interval improvement on serial echo from 09/2017 to 01/2018 to 35-40% with markely enlarged LA, restricitive diastolic physiology and mod-sev PULM HTN PASP 50-60mmhg. He has improved clinically with volume maintainence via HD: Continue CHF therapy with long acting betablocker: I suggest change to coreg and titrate as tolerated Given CKD: and that he is on HD NENA-I or ARB and low dose aldactone would be optimal treatment if this can be added. Keep Mg >2.0 >AFIB - rate controlled - coagulopthy with thrombocytopenia - There are scattered echymosis but no gross bleeding - H/H around 9 - I feel given inability to maintain safe INR range: eliquis 2.5 BID is a reasonable option for afib stroke prophylaxis. Defer to heme given concomitant thrombocytopenia. > CKD and HD dependent - cont HD to maintain volume - monitor lytes and K+ - bumex and metolazone orally > Severe thrombocytopenia - - I feel given inability to maintain safe INR range: eliquis 2.5 BID is a reasonable option for afib stroke prophylaxis. Defer to heme given concomitant thrombocytopenia.
[2018-03-07 14:14] LABS: INR 1.6; PROTHROMBIN TIME 17.4 SECONDS (9.7-12.2)
[2018-03-07 14:31] LABS: BASO % 0.2 % (0.0-2.0); HEMOGLOBIN 9.6 g/dL (12.0-18.0); LYMPH # 0.4 K/uL (1.0-4.3); LYMPH % 5.1 % (20.0-40.0); MEAN CELL VOLUME 109.6 fL (80.0-94.0); MEAN CORPUSCULAR HEMOGLOBIN 35.8 pg (27.0-31.0); MEAN CORPUSCULAR HGB CONC 32.7 g/dL (33.0-37.0); MEAN PLATELET VOLUME 11.2 fL (7.2-11.7); MONO # 0.9 K/uL (0.0-0.8); MONO % 12.8 % (0.0-10.0); NEUT # 5.9 K/uL (1.8-7.0); NEUT % 81.9 % (50.0-75.0); PLATELET COUNT 35 K/uL (130-400); RBC 2.68 Mil/uL (4.40-5.90); RED CELL DISTRIBUTION WIDTH 17.9 % (11.5-14.5); WHITE BLOOD COUNT 7.2 K/uL (4.8-10.8)
[2018-03-07 15:22] LABS: ALBUMIN 3.3 g/dL (3.5-5.0); CALCIUM 8.5 mg/dl (8.6-10.4)
[2018-03-07 15:29] LABS: LYMPHOCYTE 5 % (20-40); MONOCYTE 10 % (0-10); NEUTROPHIL 85 % (50-75); PLATELET ESTIMATE DECREASED (NORMAL); TOTAL CELLS COUNTED 100
[2018-03-07 15:30] LABS: ANISOCYTOSIS SLIGHT; HYPOCHROMIC SLIGHT; POIKILOCYTOSIS SLIGHT
[2018-03-07 15:31] LABS: LARGE PLATELETS PRESENT; OVALOCYTES SLIGHT; TEARDROP CELLS SLIGHT
[2018-03-08] MEDS: Albuterol-Ipratrop 3 mg / 0.5 (3 ml) UD INH SCH ×4 (01:59→19:29)
[2018-03-08] MEDS: (Novolog) Insulin Aspart, Recombinant 100 u/ml 10 ml vial SC SCH ×4 (08:18→21:29)
[2018-03-08] MEDS ORDERED: Lidocaine 1% PF (5ml) Amp INJ ONE (10:45)
[2018-03-08 11:16] LABS: BASO # 0.1 K/uL (0.0-0.2); BASO % 0.8 % (0.0-2.0); EOS # 0.2 K/uL (0.0-0.7); EOS % 2.8 % (0.0-4.0); HEMOGLOBIN 9.4 g/dL (12.0-18.0); LYMPH # 0.6 K/uL (1.0-4.3); LYMPH % 8.7 % (20.0-40.0); MEAN CELL VOLUME 108.9 fL (80.0-94.0); MEAN CORPUSCULAR HEMOGLOBIN 36.4 pg (27.0-31.0); MEAN CORPUSCULAR HGB CONC 33.4 g/dL (33.0-37.0); MEAN PLATELET VOLUME 9.7 fL (7.2-11.7); MONO % 14.1 % (0.0-10.0); NEUT # 5.3 K/uL (1.8-7.0); NEUT % 73.6 % (50.0-75.0); PLATELET COUNT 47 K/uL (130-400); RBC 2.59 Mil/uL (4.40-5.90); RED CELL DISTRIBUTION WIDTH 17.9 % (11.5-14.5); WHITE BLOOD COUNT 7.2 K/uL (4.8-10.8)
[2018-03-08 11:48] LABS: ANISOCYTOSIS SLIGHT; EOSINOPHIL 2 % (0-4); HYPOCHROMIC SLIGHT; LYMPHOCYTE 9 % (20-40); MONOCYTE 2 % (0-10); NEUTROPHIL 87 % (50-75); PLATELET ESTIMATE DECREASED (NORMAL); POLYCHROMIC SLIGHT; TOTAL CELLS COUNTED 100
[2018-03-08 11:49] LABS: OVALOCYTES SLIGHT
[2018-03-08 11:51] LABS: TARGET CELLS SLIGHT
--- NOTE | 2018-03-08 14:35 | CP.PCM.PN ---
<Brain Dawn Rose Mary - Last Filed: 03/08/18 14:40> Subjective - Date & Time of Evaluation Date of Evaluation: 03/08/18 Time of Evaluation: 10:00 - Subjective Subjective: Nephrology progress note - López, PGY - 2 Patient seen and examined at bedside, no new complaints. Patient had bone marrow biopsy this AM; is for HD today. LUE pain is decreased. ROS otherwise negative. Objective - Vital Signs/Intake and Output Vital Signs (last 24 hours): Temp Pulse Resp BP Pulse Ox 98.1 F 73 20 116/56 L 100 03/08/18 07:00 03/08/18 11:00 03/08/18 11:00 03/08/18 11:00 03/08/18 07:00 Intake and Output: 03/08/18 03/08/18 06:59 18:59 Intake Total 400 Output Total 900 Balance -500 - Medications Medications: Current Medications Acetaminophen (Tylenol 325mg Tab) 650 mg PO Q6 PRN PRN Reason: Fever >100.4 F and Pain (4-7) Last Admin: 03/06/18 18:26 Dose: 650 mg Albuterol/Ipratropium (Duoneb 3 Mg/0.5 Mg (3 Ml) Ud) 3 ml INH RQ6 [facility] Last Admin: 03/08/18 09:14 Dose: Not Given Alprazolam (Xanax) 0.25 mg PO DAILY PRN PRN Reason: Anxiety Stop: 03/13/18 10:01 Bumetanide (Bumex) 2 mg PO BID [facility] Last Admin: 03/08/18 09:49 Dose: 2 mg Epoetin Carlos A (Procrit) 10,000 unit IV [facility] Last Admin: 03/06/18 16:18 Dose: 10,000 unit Heparin Sodium (Porcine) (Heparin) 3,900 units IVP [facility] Insulin Aspart (Novolog) 0 unit [facility]; Protocol Last Admin: 03/08/18 12:15 Dose: Not Given Lactulose (Enulose) 20 gm PO DAILY [facility] Last Admin: 03/08/18 09:50 Dose: 20 gm Metolazone (Zaroxolyn) 5 mg PO TTS [facility] Last Admin: 03/07/18 12:23 Dose: 5 mg Metoprolol Tartrate (Lopressor) 25 mg PO 0800,1700 [facility] Last Admin: 03/08/18 08:40 Dose: 25 mg Risperidone (Risperdal Tab) 0.25 mg PO HS [facility] Last Admin: 03/07/18 21:56 Dose: 0.25 mg Sitagliptin Phosphate (Januvia) 25 mg PO DAILY [facility] Last Admin: 03/08/18 09:49 Dose: 25 mg Zinc Sulfate (Zinc Sulfate 220 Mg Cap) 220 mg PO DAILY [facility] Last Admin: 03/08/18 09:49 Dose: 220 mg - Labs Labs: 03/08/18 11:07 03/07/18 13:56 PT 17.4 SECONDS (9.7-12.2) H 03/07/18 13:56 INR 1.6 03/07/18 13:56 APTT 39 SECONDS (21-34) H 03/07/18 13:56 - Constitutional Appears: Well - Head Exam Head Exam: ATRAUMATIC, NORMAL INSPECTION, NORMOCEPHALIC - Eye Exam Eye Exam: EOMI, Normal appearance, PERRL Pupil Exam: NORMAL ACCOMODATION, PERRL - ENT Exam ENT Exam: Mucous Membranes Moist, Normal Exam - Neck Exam Neck Exam: Full ROM, Normal Inspection. absent: Lymphadenopathy - Respiratory Exam Respiratory Exam: Clear to Ausculation Bilateral, NORMAL BREATHING PATTERN - Cardiovascular Exam Cardiovascular Exam: REGULAR RHYTHM, +S1, +S2. absent: Murmur - GI/Abdominal Exam GI & Abdominal Exam: Soft, Normal Bowel Sounds. absent: Tenderness - Extremities Exam Extremities Exam: Full ROM, Normal Capillary Refill, Normal Inspection. 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 Plan CKD Stage 3B/4 - HD today; will target 2L UF. Will continue HD in light of U/O less than .5ml/kg/hr despite diuretic treatment - Avoid nephrotoxic agents; avoid NSAIDs, avoid Morphine for pain control, as metabolites will build up - Bumex 2 BID; Metolazone on non- HD days CHF - Continue with lopressor for now; patient should start Aldactone and NENA-I/ARB when BP stable Anemia - Heme/onc on consult - Epogen with dialysis Coagulopathy - Eliquis 2.5 BID per cardio; awaiting Heme/onc recommendations <Terence Mcnamara - Last Filed: 03/09/18 08:48> Objective - Vital Signs/Intake and Output Vital Signs (last 24 hours): Temp Pulse Resp BP Pulse Ox 98.4 F 76 20 106/53 L 95 03/09/18 08:28 03/09/18 08:28 03/09/18 08:28 03/09/18 08:28 03/09/18 08:28 Intake and Output: 03/09/18 03/09/18 06:59 18:59 Intake Total 150 Balance 150 - Medications Medications: Current Medications Acetaminophen (Tylenol 325mg Tab) 650 mg PO Q6 PRN PRN Reason: Fever >100.4 F and Pain (4-7) Last Admin: 03/06/18 18:26 Dose: 650 mg Albuterol/Ipratropium (Duoneb 3 Mg/0.5 Mg (3 Ml) Ud) 3 ml INH RQ6 [facility] Last Admin: 03/09/18 07:35 Dose: Not Given Alprazolam (Xanax) 0.25 mg PO DAILY PRN PRN Reason: Anxiety Stop: 03/13/18 10:01 Apixaban (Eliquis) 2.5 mg PO Q12 [facility] Last Admin: 03/08/18 21:30 Dose: 2.5 mg Bumetanide (Bumex) 2 mg PO BID [facility] Last Admin: 03/08/18 20:19 Dose: 2 mg Epoetin Carlos A (Procrit) 10,000 unit IV [facility] Last Admin: 03/08/18 15:26 Dose: 10,000 unit Heparin Sodium (Porcine) (Heparin) 3,900 units IVP [facility] Last Admin: 03/08/18 15:25 Dose: 3,900 units Insulin Aspart (Novolog) 0 unit [facility]; Protocol Last Admin: 03/09/18 07:40 Dose: Not Given Lactulose (Enulose) 20 gm PO DAILY [facility] Last Admin: 03/08/18 09:50 Dose: 20 gm Metolazone (Zaroxolyn) 5 mg PO TTS [facility] Last Admin: 03/07/18 12:23 Dose: 5 mg Metoprolol Tartrate (Lopressor) 25 mg PO 0800,1700 [facility] Last Admin: 03/09/18 08:27 Dose: Not Given Risperidone (Risperdal Tab) 0.25 mg PO HS [facility] Last Admin: 03/08/18 21:30 Dose: 0.25 mg Sitagliptin Phosphate (Januvia) 25 mg PO DAILY [facility] Last Admin: 03/08/18 09:49 Dose: 25 mg Zinc Sulfate (Zinc Sulfate 220 Mg Cap) 220 mg PO DAILY [facility] Last Admin: 03/08/18 09:49 Dose: 220 mg - Labs Labs: 03/09/18 06:44 03/09/18 06:44 PT 17.4 SECONDS (9.7-12.2) H 03/07/18 13:56 INR 1.6 03/07/18 13:56 APTT 39 SECONDS (21-34) H 03/07/18 13:56 Attending/Attestation - Attestation I have personally seen and examined this patient.: Yes I have fully participated in the care of the patient.: Yes I have reviewed all pertinent clinical information, including history, physical exam and plan: Yes Notes (Text): Patient seen and examined; I agree with the resident's note as above with the following additions/edits: Patient with severe CHF w/ biventricular dysfunction, afib on coumadin, BRANDI on CKD IIIB/IV, HD dependent since 2 months, admitted with coagulopathy; Tolerating HD session well today with UF goal of 2L; mild edema on exam, otherwise relatively stable volume status; will continue diuretics to help maintain euvolemia; need to preserve residual renal function by avoiding nephrotoxic agents in this patient with very tenuous volume status due to CHF; Anemia likely multifactorial; receiving MARTIN as outpatient in HD, will continue same here; CKD mineral bone disorder; has not needed phos binder; will encourage increased protein calorie intake; On metoprolol for CHF; BP stable but not cannot add JAVIER blockade at this time without fear of hypotension; Gout symptoms improved; will consider starting allopurinol for custodial urate reduction given his frequent flares;
--- NOTE | 2018-03-08 14:55 | PN ---
DATE: 03/08/2018 HEMATOLOGY EVALUATION SUBJECTIVE: This is an 83-year-old man on dialysis, many medical problems, but he also has pancytopenia with increasing lymphocytes and monocytes. I am concerned about lymphoproliferative disorder in his bone marrow. I spoke with his daughter Marline and got permission from her and she gave verbal consent witnessed by two of the nurses to do the bone marrow aspiration and biopsy. I also explained to the patient. He understood what was going on as well. I performed the bone marrow aspiration and biopsy from the left posterior iliac crest under local 1% lidocaine and sterile precautions and I brought the material down to the laboratory myself and they will evaluate this, also biopsy the clot, the aspiration, and the flow cytometry. I told the daughter that we will not get results for another week, so, if he is out of the hospital, I will check on that. Tony Bhat MD
--- NOTE | 2018-03-08 15:17 | CP.PCM.PN ---
Subjective - Date & Time of Evaluation Date of Evaluation: 03/08/18 Time of Evaluation: 15:14 - Subjective Subjective: No cardiac compliants Plt improved from 24 > 47 INR 1.6; H/H stable Objective - Vital Signs/Intake and Output Vital Signs (last 24 hours): Temp Pulse Resp BP Pulse Ox 98 F 75 18 96/46 L 98 03/08/18 14:20 03/08/18 14:20 03/08/18 14:20 03/08/18 15:05 03/08/18 14:20 Intake and Output: 03/08/18 03/08/18 06:59 18:59 Intake Total 400 Output Total 900 Balance -500 - Medications Medications: Current Medications Acetaminophen (Tylenol 325mg Tab) 650 mg PO Q6 PRN PRN Reason: Fever >100.4 F and Pain (4-7) Last Admin: 03/06/18 18:26 Dose: 650 mg Albuterol/Ipratropium (Duoneb 3 Mg/0.5 Mg (3 Ml) Ud) 3 ml INH RQ6 [facility] Last Admin: 03/08/18 09:14 Dose: Not Given Alprazolam (Xanax) 0.25 mg PO DAILY PRN PRN Reason: Anxiety Stop: 03/13/18 10:01 Bumetanide (Bumex) 2 mg PO BID [facility] Last Admin: 03/08/18 09:49 Dose: 2 mg Epoetin Carlos A (Procrit) 10,000 unit [place] [facility] Last Admin: 03/06/18 16:18 Dose: 10,000 unit Heparin Sodium (Porcine) (Heparin) 3,900 units [facility] Insulin Aspart (Novolog) 0 unit SC [facility]; Protocol Last Admin: 03/08/18 12:15 Dose: Not Given Lactulose (Enulose) 20 gm PO DAILY [facility] Last Admin: 03/08/18 09:50 Dose: 20 gm Metolazone (Zaroxolyn) 5 mg PO TTS [facility] Last Admin: 03/07/18 12:23 Dose: 5 mg Metoprolol Tartrate (Lopressor) 25 mg PO 0800,1700 [facility] Last Admin: 03/08/18 08:40 Dose: 25 mg Risperidone (Risperdal Tab) 0.25 mg PO HS [facility] Last Admin: 03/07/18 21:56 Dose: 0.25 mg Sitagliptin Phosphate (Januvia) 25 mg PO DAILY [facility] Last Admin: 03/08/18 09:49 Dose: 25 mg Zinc Sulfate (Zinc Sulfate 220 Mg Cap) 220 mg PO DAILY [facility] Last Admin: 03/08/18 09:49 Dose: 220 mg - Labs Labs: 03/08/18 11:07 03/07/18 13:56 PT 17.4 SECONDS (9.7-12.2) H 03/07/18 13:56 INR 1.6 03/07/18 13:56 APTT 39 SECONDS (21-34) H 03/07/18 13:56 - Constitutional Appears: No Acute Distress - Head Exam Head Exam: ATRAUMATIC, NORMAL INSPECTION, NORMOCEPHALIC - Eye Exam Eye Exam: EOMI, Normal appearance. absent: Scleral icterus - ENT Exam ENT Exam: Mucous Membranes Moist, Normal Oropharynx - Respiratory Exam Respiratory Exam: Clear to Ausculation Bilateral. absent: Rhonchi, Wheezes - Cardiovascular Exam Cardiovascular Exam: Irregular Rhythm, +S1, +S2, Murmur. absent: Gallop - Extremities Exam Extremities Exam: Normal Inspection. absent: Calf Tenderness, Pedal Edema - Neurological Exam Neurological Exam: Alert, Awake, Oriented x3 - Psychiatric Exam Psychiatric exam: Normal Affect, Normal Mood - Skin Skin Exam: Normal Color, Warm Assessment and Plan - Assessment and Plan (Free Text) Assessment: Imaging directly viewed by me: > EKG: AFIB, rate 74, non-specific ST changes lateral > CXR: mild congestion, CABG sternotmy wires, mild congestion, R. IJ catheter, L. pleural effusion Impression: > CAD with moderate systolic dysfunction (in addition, RV dysfunction, mod-sev PHTN, restricitve diastolic dysfunction) > Hx CABG Patient has had interval improvement on serial echo from 09/2017 to 01/2018 to 35-40% with markely enlarged LA, restricitive diastolic physiology and mod-sev PULM HTN PASP 50-60mmhg. He has improved clinically with volume maintainence via HD: Continue CHF therapy with long acting betablocker: I suggest change to coreg and titrate as tolerated Given CKD: and that he is on HD NENA-I or ARB and low dose aldactone would be optimal treatment if this can be added. Keep Mg >2.0 >AFIB [id number] score = 5/9 > Severe thrombocytopenia - rate controlled - coagulopthy with thrombocytopenia - There are scattered echymosis but no gross bleeding - H/H around 9 - I feel given inability to maintain safe INR range: eliquis 2.5 BID is a reasonable option for afib stroke prophylaxis. Defer to heme given concomitant thrombocytopenia. > had BM biopsy today: I spoke with Dr. aponte and we agree that eliquis 2.5 BID is a reasonable option for AC provided that PLT count is monitored q3days at [facility] facility to make sure trends >50. [facility] will f/u as outpatient regards BM biopsy results. > CKD and HD dependent - cont HD to maintain volume - monitor lytes and K+ - bumex and metolazone orally
[2018-03-08] MEDS: Epoetin Alfa 10,000 unit/ml Dialysis IV SCH (15:26)
[2018-03-09] MEDS: Albuterol-Ipratrop 3 mg / 0.5 (3 ml) UD INH SCH ×4 (01:21→19:51)
[2018-03-09 06:54] LABS: BASO % 0.7 % (0.0-2.0); EOS # 0.2 K/uL (0.0-0.7); EOS % 2.2 % (0.0-4.0); HEMOGLOBIN 9.4 g/dL (12.0-18.0); LYMPH # 0.5 K/uL (1.0-4.3); LYMPH % 7.6 % (20.0-40.0); MEAN CELL VOLUME 107.9 fL (80.0-94.0); MEAN CORPUSCULAR HEMOGLOBIN 36.8 pg (27.0-31.0); MEAN CORPUSCULAR HGB CONC 34.1 g/dL (33.0-37.0); MEAN PLATELET VOLUME 9.2 fL (7.2-11.7); MONO # 1.1 K/uL (0.0-0.8); MONO % 14.8 % (0.0-10.0); NEUT # 5.4 K/uL (1.8-7.0); NEUT % 74.7 % (50.0-75.0); NRBC % 0.1 % (0.0-2.0); PLATELET COUNT 53 K/uL (130-400); RBC 2.54 Mil/uL (4.40-5.90); RED CELL DISTRIBUTION WIDTH 17.7 % (11.5-14.5); WHITE BLOOD COUNT 7.2 K/uL (4.8-10.8)
[2018-03-09 07:36] LABS: CALCIUM 8.1 mg/dl (8.6-10.4)
[2018-03-09] MEDS: (Novolog) Insulin Aspart, Recombinant 100 u/ml 10 ml vial SC SCH ×5 (07:40→21:19)
[2018-03-09] MEDS: metOLazone 5 MG TAB PO SCH (09:31)
[2018-03-09 09:36] LABS: ANISOCYTOSIS SLIGHT; LYMPHOCYTE 4 % (20-40); MONOCYTE 11 % (0-10); NEUTROPHIL 85 % (50-75); PLATELET ESTIMATE DECREASED (NORMAL); TOTAL CELLS COUNTED 100
[2018-03-09 09:37] LABS: HYPOCHROMIC SLIGHT; POLYCHROMIC SLIGHT
[2018-03-09 09:38] LABS: OVALOCYTES SLIGHT
--- NOTE | 2018-03-09 10:29 | CARD ---
APPROVED REPORT Date of service: 03/04/2018 EKG Measurement Heart [id number] <Conclusion> Atrial fibrillation Nonspecific ST and T wave abnormality Abnormal ECG
--- NOTE | 2018-03-09 20:51 | CP.PCM.PN ---
Subjective - Date & Time of Evaluation Date of Evaluation: 03/09/18 Time of Evaluation: 12:00 - Subjective Subjective: Patient reports severe R elbow pain with associated limited range of motion; also with new L ankle pain; no sob; urinating well; Objective - Vital Signs/Intake and Output Vital Signs (last 24 hours): Temp Pulse Resp BP Pulse Ox 98.3 F 85 20 121/74 98 03/09/18 15:00 03/09/18 15:00 03/09/18 15:00 03/09/18 17:24 03/09/18 15:00 - Medications Medications: Current Medications Acetaminophen (Tylenol 325mg Tab) 650 mg PO Q6 PRN PRN Reason: Fever >100.4 F and Pain (4-7) Last Admin: 03/06/18 18:26 Dose: 650 mg Albuterol/Ipratropium (Duoneb 3 Mg/0.5 Mg (3 Ml) Ud) 3 ml INH RQ6 [facility] Last Admin: 03/09/18 19:51 Dose: 3 ml Alprazolam (Xanax) 0.25 mg PO DAILY PRN PRN Reason: Anxiety Stop: 03/13/18 10:01 Apixaban (Eliquis) 2.5 mg PO Q12 [facility] Last Admin: 03/09/18 09:31 Dose: 2.5 mg Bumetanide (Bumex) 2 mg PO BID [facility] Last Admin: 03/09/18 17:21 Dose: 2 mg Epoetin Carlos A (Procrit) 10,000 unit IV [facility] Last Admin: 03/08/18 15:26 Dose: 10,000 unit Heparin Sodium (Porcine) (Heparin) 3,900 units IVP [facility] Last Admin: 03/08/18 15:25 Dose: 3,900 units Insulin Aspart (Novolog) 0 unit SC [facility]; Protocol Last Admin: 03/09/18 17:24 Dose: Not Given Lactulose (Enulose) 20 gm PO DAILY [facility] Last Admin: 03/09/18 09:31 Dose: 20 gm Metolazone (Zaroxolyn) 5 mg PO TTS [facility] Last Admin: 03/09/18 09:31 Dose: 5 mg Metoprolol Tartrate (Lopressor) 25 mg PO 0800,1700 [facility] Last Admin: 03/09/18 17:24 Dose: 25 mg Prednisone (Prednisone Tab) 40 mg PO DAILY [facility] Last Admin: 03/09/18 12:08 Dose: 40 mg Risperidone (Risperdal Tab) 0.25 mg PO HS [facility] Last Admin: 03/08/18 21:30 Dose: 0.25 mg Sitagliptin Phosphate (Januvia) 25 mg PO DAILY [facility] Last Admin: 03/09/18 09:31 Dose: 25 mg Zinc Sulfate (Zinc Sulfate 220 Mg Cap) 220 mg PO DAILY [facility] Last Admin: 03/09/18 09:31 Dose: 220 mg - Labs Labs: 03/09/18 06:44 03/09/18 06:44 PT 17.4 SECONDS (9.7-12.2) H 03/07/18 13:56 INR 1.6 03/07/18 13:56 APTT 39 SECONDS (21-34) H 03/07/18 13:56 - Constitutional Appears: Non-toxic, No Acute Distress - Eye Exam Eye Exam: Normal appearance - Respiratory Exam Respiratory Exam: Clear to Ausculation Bilateral. absent: Respiratory Distress - Cardiovascular Exam Cardiovascular Exam: absent: Gallop, Rubs Additional comments: systolic murmur - GI/Abdominal Exam GI & Abdominal Exam: Soft. absent: Distended, Tenderness - Extremities Exam Additional comments: mild leg edema; - Neurological Exam Neurological Exam: Alert, Awake - Psychiatric Exam Psychiatric exam: Normal Affect, Normal Mood. absent: Agitated - Skin Skin Exam: Warm. absent: Cyanosis Assessment and Plan (1) Acute on chronic renal failure Assessment & Plan: Relatively stable volume and electrolyte status; cardiorenal etiology of renal failure; doesn't have enough urine output to take off HD; will continue with HD support on MWF schedule as well as standing diuretics; -avoid nephrotoxic agents; extremely important to preserve residual renal function as low/normal BP limits degree of fluid removal on HD; Status: Acute (2) Anemia Assessment & Plan: With severe thrombocytopenia; s/p BM biopsy yesterday, will f/u with heme; continue with EPO on HD; Status: Chronic (3) CHF (congestive heart failure) Assessment & Plan: With severe systolic/biventricular dysfunction; weights are decreasing with adequate diuresis and UF on HD; will continue B-blockers and add JAVIER blockade when BP allows; Status: Chronic (4) Gout flare Assessment & Plan: 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
--- NOTE | 2018-03-09 21:59 | CP.PCM.PN ---
Subjective - Date & Time of Evaluation Date of Evaluation: 03/07/18 Time of Evaluation: 21:59 - Subjective Subjective: Patient received hemodialysis. I discussed with the rehab assistant. Also I discussed with the oncologist. Status post bone marrow biopsy. We will continue the current treatment. Possible discharge plan once the patient is stable Objective - Vital Signs/Intake and Output Vital Signs (last 24 hours): Temp Pulse Resp BP Pulse Ox 98.3 F 85 20 121/74 98 03/09/18 15:00 03/09/18 15:00 03/09/18 15:00 03/09/18 17:24 03/09/18 15:00 - Medications Medications: Current Medications Acetaminophen (Tylenol 325mg Tab) 650 mg PO Q6 PRN PRN Reason: Fever >100.4 F and Pain (4-7) Last Admin: 03/06/18 18:26 Dose: 650 mg Albuterol/Ipratropium (Duoneb 3 Mg/0.5 Mg (3 Ml) Ud) 3 ml INH RQ6 [facility] Last Admin: 03/09/18 19:51 Dose: 3 ml Alprazolam (Xanax) 0.25 mg PO DAILY PRN PRN Reason: Anxiety Stop: 03/13/18 10:01 Apixaban (Eliquis) 2.5 mg PO Q12 [facility] Last Admin: 03/09/18 09:31 Dose: 2.5 mg Bumetanide (Bumex) 2 mg PO BID [facility] Last Admin: 03/09/18 17:21 Dose: 2 mg Epoetin Carlos A (Procrit) 10,000 unit [place] [facility] [facility] [place] Admin: 03/08/18 15:26 Dose: 10,000 unit Heparin Sodium (Porcine) (Heparin) 3,900 units IVP [facility] [place] Last Admin: 03/08/18 15:25 Dose: 3,900 units Insulin Aspart (Novolog) 0 unit SC [facility]; Protocol Last Admin: 03/09/18 21:19 Dose: Not Given Lactulose (Enulose) 20 gm PO DAILY [facility] Last Admin: 03/09/18 09:31 Dose: 20 gm Metolazone (Zaroxolyn) 5 mg PO TTS [facility] Last Admin: 03/09/18 09:31 Dose: 5 mg Metoprolol Tartrate (Lopressor) 25 mg PO 0800,1700 [facility] Last Admin: 03/09/18 17:24 Dose: 25 mg Prednisone (Prednisone Tab) 40 mg PO DAILY [facility] Last Admin: 03/09/18 12:08 Dose: 40 mg Risperidone (Risperdal Tab) 0.25 mg PO HS [facility] Last Admin: 03/08/18 21:30 Dose: 0.25 mg Sitagliptin Phosphate (Januvia) 25 mg PO DAILY [facility] Last Admin: 03/09/18 09:31 Dose: 25 mg Zinc Sulfate (Zinc Sulfate 220 Mg Cap) 220 mg PO DAILY [facility] Last Admin: 03/09/18 09:31 Dose: 220 mg - Labs Labs: 03/09/18 06:44 03/09/18 06:44 PT 17.4 SECONDS (9.7-12.2) H 03/07/18 13:56 INR 1.6 03/07/18 13:56 APTT 39 SECONDS (21-34) H 03/07/18 13:56
--- NOTE | 2018-03-09 22:00 | CP.PCM.PN ---
Subjective - Date & Time of Evaluation Date of Evaluation: 03/08/18 Time of Evaluation: 21:59 - Subjective Subjective: Patient is lying down comfortably. He is able to sit up with assistance. He is able to eat by himself. I discussed with the tip stitcher. We will start the patient on Eliquis 2.5 mg twice daily. Monitor the H&H. If the hemoglobin is stable for the next 2 days he can be discharged. I discussed with the patient's family about that Objective - Vital Signs/Intake and Output Vital Signs (last 24 hours): Temp Pulse Resp BP Pulse Ox 98.3 F 85 20 121/74 98 03/09/18 15:00 03/09/18 15:00 03/09/18 15:00 03/09/18 17:24 03/09/18 15:00 - Medications Medications: Current Medications Acetaminophen (Tylenol 325mg Tab) 650 mg PO Q6 PRN PRN Reason: Fever >100.4 F and Pain (4-7) Last Admin: 03/06/18 18:26 Dose: 650 mg Albuterol/Ipratropium (Duoneb 3 Mg/0.5 Mg (3 Ml) Ud) 3 ml INH RQ6 [facility] Last Admin: 03/09/18 19:51 Dose: 3 ml Alprazolam (Xanax) 0.25 mg PO DAILY PRN PRN Reason: Anxiety Stop: 03/13/18 10:01 Apixaban (Eliquis) 2.5 mg PO Q12 [facility] Last Admin: 03/09/18 09:31 Dose: 2.5 mg Bumetanide (Bumex) 2 mg PO BID [facility] Last Admin: 03/09/18 17:21 Dose: 2 mg Epoetin Carlos A (Procrit) 10,000 unit IV [facility] [place] Last Admin: 03/08/18 15:26 Dose: 10,000 unit Heparin Sodium (Porcine) (Heparin) 3,900 units IVP [facility] [place] Last Admin: 03/08/18 15:25 Dose: 3,900 units Insulin Aspart (Novolog) 0 unit SC [facility]; Protocol Last Admin: 03/09/18 21:19 Dose: Not Given Lactulose (Enulose) 20 gm PO DAILY [facility] Last Admin: 03/09/18 09:31 Dose: 20 gm Metolazone (Zaroxolyn) 5 mg PO TTS [facility] Last Admin: 03/09/18 09:31 Dose: 5 mg Metoprolol Tartrate (Lopressor) 25 mg PO 0800,1700 [facility] Last Admin: 03/09/18 17:24 Dose: 25 mg Prednisone (Prednisone Tab) 40 mg PO DAILY [facility] Last Admin: 03/09/18 12:08 Dose: 40 mg Risperidone (Risperdal Tab) 0.25 mg PO HS [facility] Last Admin: 03/08/18 21:30 Dose: 0.25 mg Sitagliptin Phosphate (Januvia) 25 mg PO DAILY [facility] Last Admin: 03/09/18 09:31 Dose: 25 mg Zinc Sulfate (Zinc Sulfate 220 Mg Cap) 220 mg PO DAILY [facility] Last Admin: 03/09/18 09:31 Dose: 220 mg - Labs Labs: 03/09/18 06:44 03/09/18 06:44 PT 17.4 SECONDS (9.7-12.2) H 03/07/18 13:56 INR 1.6 03/07/18 13:56 APTT 39 SECONDS (21-34) H 03/07/18 13:56
--- NOTE | 2018-03-09 22:00 | CP.PCM.PN ---
Subjective - Date & Time of Evaluation Date of Evaluation: 03/09/18 Time of Evaluation: 22:00 - Subjective Subjective: Patient is eating well. Denies any chest pain or shortness of breath, leg swelling is better. Clinically stable. Follow discharge plan possibly tomorrow. We will repeat the CBC in the morning Objective - Vital Signs/Intake and Output Vital Signs (last 24 hours): Temp Pulse Resp BP Pulse Ox 98.3 F 85 20 121/74 98 03/09/18 15:00 03/09/18 15:00 03/09/18 15:00 03/09/18 17:24 03/09/18 15:00 - Medications Medications: Current Medications Acetaminophen (Tylenol 325mg Tab) 650 mg PO Q6 PRN PRN Reason: Fever >100.4 F and Pain (4-7) Last Admin: 03/06/18 18:26 Dose: 650 mg Albuterol/Ipratropium (Duoneb 3 Mg/0.5 Mg (3 Ml) Ud) 3 ml INH RQ6 [facility] Last Admin: 03/09/18 19:51 Dose: 3 ml Alprazolam (Xanax) 0.25 mg PO DAILY PRN PRN Reason: Anxiety Stop: 03/13/18 10:01 Apixaban (Eliquis) 2.5 mg PO Q12 [facility] Last Admin: 03/09/18 09:31 Dose: 2.5 mg Bumetanide (Bumex) 2 mg PO BID [facility] Last Admin: 03/09/18 17:21 Dose: 2 mg Epoetin Carlos A (Procrit) 10,000 unit IV [facility] [place] Last Admin: 03/08/18 15:26 Dose: 10,000 unit Heparin Sodium (Porcine) (Heparin) 3,900 units IVP [facility] [place] Last Admin: 03/08/18 15:25 Dose: 3,900 units Insulin Aspart (Novolog) 0 unit SC [facility]; Protocol Last Admin: 03/09/18 21:19 Dose: Not Given Lactulose (Enulose) 20 gm PO DAILY [facility] Last Admin: 03/09/18 09:31 Dose: 20 gm Metolazone (Zaroxolyn) 5 mg PO TTS [facility] Last Admin: 03/09/18 09:31 Dose: 5 mg Metoprolol Tartrate (Lopressor) 25 mg PO 0800,1700 [facility] Last Admin: 03/09/18 17:24 Dose: 25 mg Prednisone (Prednisone Tab) 40 mg PO DAILY [facility] Last Admin: 03/09/18 12:08 Dose: 40 mg Risperidone (Risperdal Tab) 0.25 mg PO HS [facility] Last Admin: 03/08/18 21:30 Dose: 0.25 mg Sitagliptin Phosphate (Januvia) 25 mg PO DAILY [facility] Last Admin: 03/09/18 09:31 Dose: 25 mg Zinc Sulfate (Zinc Sulfate 220 Mg Cap) 220 mg PO DAILY [facility] Last Admin: 03/09/18 09:31 Dose: 220 mg - Labs Labs: 03/09/18 06:44 03/09/18 06:44 PT 17.4 SECONDS (9.7-12.2) H 03/07/18 13:56 INR 1.6 03/07/18 13:56 APTT 39 SECONDS (21-34) H 03/07/18 13:56
[2018-03-10] MEDS: Albuterol-Ipratrop 3 mg / 0.5 (3 ml) UD INH SCH ×4 (01:19→20:05)
[2018-03-10] MEDS: (Novolog) Insulin Aspart, Recombinant 100 u/ml 10 ml vial SC SCH ×4 (08:05→21:47)
[2018-03-10] MEDS ORDERED: metOLazone 5 MG TAB PO SCH (10:00)
--- NOTE | 2018-03-10 13:38 | CP.PCM.PN ---
Subjective - Date & Time of Evaluation Date of Evaluation: 03/10/18 Time of Evaluation: 13:37 - Subjective Subjective: Patient is lying down in the bed. He is very comfortable. He has no chest pain at this time, he denies any shortness of breath. Needs assistance in sitting up. Also he needs a physical therapy for moving around. Received hemodialysis day before yesterday. He will be getting hemodialysis possibly tomorrow. He is tolerating the Eliquis 2.5 mg twice daily Will monitor the H&H tomorrow. I discussed with the family. Possible discharge planning tomorrow after the dialysis once he is stable. 83-year-old male with a history of advanced heart disease. Congestive heart failure. Admitted with renal insufficiency. Also patient is on anticoagulation for atrial flutter fibrillation. Objective - Vital Signs/Intake and Output Vital Signs (last 24 hours): Temp Pulse Resp BP Pulse Ox 98 F 76 20 123/62 98 03/10/18 07:00 03/10/18 07:00 03/10/18 07:00 03/10/18 08:23 03/10/18 07:00 Intake and Output: 03/10/18 03/10/18 06:59 18:59 Intake Total 150 Balance 150 - Medications Medications: Current Medications Acetaminophen (Tylenol 325mg Tab) 650 mg PO Q6 PRN PRN Reason: Fever >100.4 F and Pain (4-7) Last Admin: 03/06/18 18:26 Dose: 650 mg Albuterol/Ipratropium (Duoneb 3 Mg/0.5 Mg (3 Ml) Ud) 3 ml INH RQ6 [facility] Last Admin: 03/10/18 07:25 Dose: 3 ml Alprazolam (Xanax) 0.25 mg PO DAILY PRN PRN Reason: Anxiety Stop: 03/13/18 10:01 Apixaban (Eliquis) 2.5 mg PO Q12 [facility] Last Admin: 03/10/18 09:07 Dose: 2.5 mg Bumetanide (Bumex) 2 mg PO BID [facility] Last Admin: 03/10/18 09:08 Dose: 2 mg Epoetin Carlos A (Procrit) 10,000 unit IV MWF [facility] Last Admin: 03/08/18 15:26 Dose: 10,000 unit Heparin Sodium (Porcine) (Heparin) 3,900 units IVP MWF [facility] Last Admin: 03/08/18 15:25 Dose: 3,900 units Insulin Aspart (Novolog) 0 unit SC [facility]; Protocol Last Admin: 03/10/18 12:47 Dose: Not Given Lactulose (Enulose) 20 gm PO DAILY [facility] Last Admin: 03/10/18 09:08 Dose: Not Given Metolazone (Zaroxolyn) 5 mg PO TTS [facility] Last Admin: 03/09/18 09:31 Dose: 5 mg Metolazone (Zaroxolyn) 5 mg PO QWK [facility] Last Admin: 03/10/18 09:07 Dose: 5 mg Metoprolol Tartrate (Lopressor) 25 mg PO 0800,1700 [facility] Last Admin: 03/10/18 08:23 Dose: 25 mg Prednisone (Prednisone Tab) 40 mg PO DAILY [facility] Last Admin: 03/10/18 09:08 Dose: 40 mg Risperidone (Risperdal Tab) 0.25 mg PO HS [facility] Last Admin: 03/09/18 22:57 Dose: 0.25 mg Sitagliptin Phosphate (Januvia) 25 mg PO DAILY [facility] Last Admin: 03/10/18 09:07 Dose: 25 mg Zinc Sulfate (Zinc Sulfate 220 Mg Cap) 220 mg PO DAILY [facility] Last Admin: 03/10/18 09:07 Dose: 220 mg - Labs Labs: 03/09/18 06:44 03/09/18 06:44 PT 17.4 SECONDS (9.7-12.2) H 03/07/18 13:56 INR 1.6 03/07/18 13:56 APTT 39 SECONDS (21-34) H 03/07/18 13:56
[2018-03-11 07:11] LABS: BASO % 0.1 % (0.0-2.0); EOS % 0.1 % (0.0-4.0); LYMPH # 0.6 K/uL (1.0-4.3); LYMPH % 8.5 % (20.0-40.0); MEAN CELL VOLUME 106.6 fL (80.0-94.0); MEAN CORPUSCULAR HEMOGLOBIN 36.3 pg (27.0-31.0); MEAN CORPUSCULAR HGB CONC 34.1 g/dL (33.0-37.0); MEAN PLATELET VOLUME 8.3 fL (7.2-11.7); MONO # 0.7 K/uL (0.0-0.8); MONO % 10.5 % (0.0-10.0); NEUT # 5.5 K/uL (1.8-7.0); NEUT % 80.8 % (50.0-75.0); PLATELET COUNT 82 K/uL (130-400); RBC 2.48 Mil/uL (4.40-5.90); RED CELL DISTRIBUTION WIDTH 17.3 % (11.5-14.5); WHITE BLOOD COUNT 6.7 K/uL (4.8-10.8)
[2018-03-11 07:25] LABS: ALBUMIN 2.9 g/dL (3.5-5.0); CALCIUM 8.3 mg/dl (8.6-10.4)
[2018-03-11] MEDS: (Novolog) Insulin Aspart, Recombinant 100 u/ml 10 ml vial SC SCH ×3 (08:02→17:29)
[2018-03-11 08:17] LABS: LYMPHOCYTE 6 % (20-40); MONOCYTE 9 % (0-10); NEUTROPHIL 85 % (50-75); TOTAL CELLS COUNTED 100
[2018-03-11 08:18] LABS: PLATELET ESTIMATE DECREASED (NORMAL)
[2018-03-11 08:19] LABS: ANISOCYTOSIS SLIGHT; BURR CELLS SLIGHT; HYPOCHROMIC SLIGHT; OVALOCYTES SLIGHT; POIKILOCYTOSIS SLIGHT
[2018-03-11 08:20] LABS: GIANT PLATELETS PRESENT; TARGET CELLS SLIGHT
--- NOTE | 2018-03-11 10:06 | CP.PCM.PN ---
Subjective - Date & Time of Evaluation Date of Evaluation: 03/11/18 Time of Evaluation: 10:00 - Subjective Subjective: PGY-3 neph[address] progress note for Dr[address] Mcnamara. Patient seen at the HD center. Patient with no complaints. States he had good night, and ate his breakfast. No fever or chills, no n/v, admits to loose bowel movements. The elbow pain has resolved. Denies dizziness, although patient have not gotten out of bed today. Objective - Vital Signs/Intake and Output Vital Signs (last 24 hours): Temp Pulse Resp BP Pulse Ox 98.4 F 81 18 116/55 L 97 03/11/18 07:00 03/11/18 07:00 03/11/18 07:00 03/11/18 07:00 03/11/18 07:00 Intake and Output: 03/11/18 03/11/18 06:59 18:59 Intake Total 10 Output Total 1200 Balance -1190 - Medications Medications: Current Medications Acetaminophen (Tylenol 325mg Tab) 650 mg PO Q6 PRN PRN Reason: Fever >100.4 F and Pain (4-7) Last Admin: 03/06/18 18:26 Dose: 650 mg Alprazolam (Xanax) 0.25 mg PO DAILY PRN PRN Reason: Anxiety Stop: 03/13/18 10:01 Apixaban (Eliquis) 2.5 mg PO Q12 [facility] Last Admin: 03/11/18 09:05 Dose: Not Given Bumetanide (Bumex) 2 mg PO BID [facility] Last Admin: 03/11/18 09:05 Dose: Not Given Epoetin Carlos A (Procrit) 10,000 unit IV MWF [facility] Last Admin: 03/08/18 15:26 Dose: 10,000 unit Insulin Aspart (Novolog) [address] [facility]; Protocol Last Admin: 03/11/18 08:02 Dose: Not Given Lactulose (Enulose) 20 gm PO DAILY [facility] Last Admin: 03/11/18 09:05 Dose: Not Given Metolazone (Zaroxolyn) 5 mg PO TTS [facility] Last Admin: 03/09/18 09:31 Dose: 5 mg Metolazone (Zaroxolyn) 5 mg PO QWK [facility] Last Admin: 03/10/18 09:07 Dose: 5 mg Metoprolol Tartrate (Lopressor) 25 mg PO 0800,1700 [facility] Last Admin: 03/11/18 09:05 Dose: Not Given Prednisone (Prednisone Tab) 40 mg PO DAILY [facility] Last Admin: 03/10/18 09:08 Dose: 40 mg Risperidone (Risperdal Tab) 0.25 mg PO HS [facility] Last Admin: 03/10/18 21:49 Dose: 0.25 mg Sitagliptin Phosphate (Januvia) 25 mg PO DAILY [facility] Last Admin: 03/11/18 09:05 Dose: Not Given Zinc Sulfate (Zinc Sulfate 220 Mg Cap) 220 mg PO DAILY [facility] Last Admin: 03/11/18 09:04 Dose: Not Given - Labs Labs: 03/11/18 06:43 03/11/18 06:43 PT 17.4 SECONDS (9.7-12.2) H 03/07/18 13:56 INR 1.6 03/07/18 13:56 APTT 39 SECONDS (21-34) H 03/07/18 13:56 - Constitutional Appears: No Acute Distress, Chronically Ill - Head Exam Head Exam: ATRAUMATIC, NORMAL INSPECTION, NORMOCEPHALIC - Eye Exam Eye Exam: Normal appearance - ENT Exam ENT Exam: Mucous Membranes Dry - Neck Exam Neck Exam: Normal Inspection Additional comments: Right sided HD cath, no signs of infection - Respiratory Exam Respiratory Exam: Clear to Ausculation Bilateral, NORMAL BREATHING PATTERN. absent: Rales, Rhonchi, Wheezes, Respiratory Distress, Stridor - Cardiovascular Exam Cardiovascular Exam: REGULAR RHYTHM, +S1, +S2 - GI/Abdominal Exam GI & Abdominal Exam: Soft, Normal Bowel Sounds. absent: Distended, Firm, Guarding, Rigid, Tenderness, Rebound - Extremities Exam Extremities Exam: Normal Inspection. 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 Patient is s/p BM on 03/08 pending path result. Plan: - Patient to go for HD today, - Continue to monitor i&os - Continue with bumex 2 mg BID on dialysis free days, and metolazone 5 mg qwk - Will discontinue lactulose - Phos of 5.5 today, will hold off phos binders. - Avoid nephrotox - Continue procrit for Anemia - On eliquis for afib - On ISS and januvia for DM - Also on Lopressor for CAD - Will add allopurinol 100 mg daily for gout prophylaxis - Continue with prednisone 40 mg for 2 more days for gout flare and taper slowly. Patient seen, examined and case discussed with Dr. Mcnamara.
[2018-03-11] MEDS: Epoetin Alfa 10,000 unit/ml Dialysis IV SCH (13:08)
[2018-03-11 13:35] VITALS: RESP 18
--- NOTE | 2018-03-11 14:32 | CP.PCM.DIS ---
Provider - Provider Date of Admission: 03/04/18 21:15 Attending physician: Amee Sosa MD Consults: 03/05/18 09:35 Nephrology Consult Routine Comment: Consulting Provider: Terence Mcnamara Consulting Physician: Terence Mcnamara Reason for Consult: DIALYSIS PT 03/05/18 11:21 Cardiology Consult Routine Comment: Consulting Provider: Harley Crawford Consulting Physician: Harley Crawford Reason for Consult: at fib med instead of coumadine 03/05/18 22:36 Wound Care [Nursing Referral for Wound Care] Routine Comment: Physician Instructions: Reason For Exam: sacral wound 1x1 03/06/18 13:14 Hematology Oncology Consult Routine Comment: thrombocytopenia Consulting Provider: Tony Bhat Consulting Physician: Tony Bhat Reason for Consult: thrombocytopenia Time Spent in preparation of Discharge (in minutes): 45 Hospital Course - Lab Results Lab Results: Most Recent Lab Values WBC 6.7 K/uL (4.8-10.8) 03/11/18 06:43 RBC 2.48 Mil/uL (4.40-5.90) L 03/11/18 06:43 Hgb 9.0 g/dL (12.0-18.0) L 03/11/18 06:43 Hct 26.4 % (35.0-51.0) L 03/11/18 06:43 MCV 106.6 fL (80.0-94.0) H 03/11/18 06:43 MCH 36.3 pg (27.0-31.0) H 03/11/18 06:43 MCHC 34.1 g/dL (33.0-37.0) 03/11/18 06:43 RDW 17.3 % (11.5-14.5) H 03/11/18 06:43 Plt Count 82 K/uL (130-400) L D 03/11/18 06:43 MPV 8.3 fL (7.2-11.7) 03/11/18 06:43 Neut % (Auto) 80.8 % (50.0-75.0) H 03/11/18 06:43 Lymph % (Auto) 8.5 % (20.0-40.0) L 03/11/18 06:43 [place] % (Auto) 10.5 % (0.0-10.0) H 03/11/18 06:43 Eos % (Auto) 0.1 % (0.0-4.0) 03/11/18 06:43 Baso % (Auto) 0.1 % (0.0-2.0) 03/11/18 06:43 Neut # (Auto) 5.5 K/uL (1.8-7.0) 03/11/18 06:43 Lymph # (Auto) 0.6 K/uL (1.0-4.3) L 03/11/18 06:43 [place] # (Auto) 0.7 K/uL (0.0-0.8) 03/11/18 06:43 Eos # (Auto) 0.0 K/uL (0.0-0.7) 03/11/18 06:43 Baso # (Auto) 0.0 K/uL (0.0-0.2) 03/11/18 06:43 Neutrophils % (Manual) 85 % (50-75) H 03/11/18 06:43 Lymphocytes % (Manual) 6 % (20-40) L 03/11/18 06:43 Monocytes % (Manual) 9 % (0-10) 03/11/18 06:43 Eosinophils % (Manual) 2 % (0-4) 03/08/18 11:07 Differential Comment 03/05/18 08:46 Platelet Estimate Decreased (NORMAL) L 03/11/18 06:43 Large Platelets Present 03/07/18 13:56 Giant Platelets Present 03/11/18 06:43 Polychromasia Slight 03/09/18 06:44 Hypochromasia (manual) Slight 03/11/18 06:43 Poikilocytosis (manual Slight 03/11/18 06:43 Anisocytosis (manual) Slight 03/11/18 06:43 Microcytosis (manual) Slight 03/06/18 06:32 Macrocytosis (manual) Slight 03/09/18 06:44 Target Cells Slight 03/11/18 06:43 Tear Drop Cells Slight 03/07/18 13:56 Ovalocytes Slight 03/11/18 06:43 [place] Cells Slight 03/11/18 06:43 PT 17.4 SECONDS (9.7-12.2) H 03/07/18 13:56 INR 1.6 03/07/18 13:56 APTT 39 SECONDS (21-34) H 03/07/18 13:56 Fibrinogen 188 mg/dL (200-400) L 03/05/18 08:46 pO2 41 mm/Hg (30-55) 03/04/18 21:02 VBG pH 7.42 (7.32-7.43) 03/04/18 21:02 VBG pCO2 44 mmHg (40-60) 03/04/18 21:02 VBG HCO3 27.0 mmol/L 03/04/18 21:02 VBG Total CO2 29.9 mmol/L (22-28) H 03/04/18 21:02 VBG O2 Sat (Calc) 79.2 % (40-65) H 03/04/18 21:02 VBG Base Excess 3.4 mmol/L (0.0-2.0) H 03/04/18 21:02 VBG Potassium 3.8 mmol/L (3.6-5.2) 03/04/18 21:02 Sodium 140.0 mmol/l (132-148) 03/04/18 21:02 Chloride 107.0 mmol/L (98-107) 03/04/18 21:02 Glucose 103 mg/dl (75-110) 03/04/18 21:02 Lactate 2.1 mmol/L (0.7-2.1) 03/04/18 21:02 Sodium 134 mmol/L (132-148) 03/11/18 06:43 Potassium 3.9 mmol/L (3.6-5.2) 03/11/18 06:43 Chloride 96 mmol/L (98-107) L 03/11/18 06:43 Carbon Dioxide 27 mmol/L (22-30) 03/11/18 06:43 Anion Gap 14 (10-20) 03/11/18 06:43 BUN 84 mg/dL (9-20) H 03/11/18 06:43 Creatinine 3.5 mg/dL (0.8-1.5) H 03/11/18 06:43 Est GFR ( Amer) 20 03/11/18 06:43 Est GFR (Non-Af Amer) 17 03/11/18 06:43 POC Glucose (mg/dL) 136 mg/dL (65-110) H 03/11/18 11:49 Random Glucose 119 mg/dL (75-110) H 03/11/18 06:43 Uric Acid 7.5 mg/dL (3.5-8.5) 03/06/18 06:32 Calcium 8.3 mg/dl (8.6-10.4) L 03/11/18 06:43 Phosphorus 5.5 mg/dL (2.5-4.5) H 03/11/18 06:43 Magnesium 1.6 mg/dL (1.6-2.3) 03/11/18 06:43 Total Bilirubin 1.5 mg/dL (0.2-1.3) H 03/11/18 06:43 Direct Bilirubin 0.9 mg/dL (0.0-0.4) H 03/05/18 08:18 AST 34 U/L (17-59) 03/11/18 06:43 ALT 52 U/L (21-72) 03/11/18 06:43 Alkaline Phosphatase 82 U/L (38-126) 03/11/18 06:43 Ammonia 17 umol/L (9-33) 03/06/18 06:32 NT-Pro-B Natriuret Pep 4940 pg/mL (0-900) H 03/06/18 06:32 Total Protein 5.8 g/dL (6.3-8.3) L 03/11/18 06:43 Albumin 2.9 g/dL (3.5-5.0) L 03/11/18 06:43 Globulin 2.9 gm/dL (2.2-3.9) 03/11/18 06:43 Albumin/Globulin Ratio 1.0 (1.0-2.1) 03/11/18 06:43 Venous Blood Potassium 3.8 mmol/L (3.6-5.2) 03/04/18 21:02 Urine Collection Time 24 HRS 03/06/18 14:15 Urine Total Volume 1050 mL 03/06/18 14:15 Creatinine Clearance 20.0 mL/min (107-139) L 03/06/18 14:15 Influenza Typ A,B (EIA) Negative for flu a/b (NEGATIVE) 03/04/18 20:46 Blood Type O POSITIVE 03/04/18 20:46 Antibody Screen Negative 01/07/19 20:46 - Hospital Course Hospital Course: Chief complaint: Patient admitted to the hospital with the very highly elevated INR level and also bleeding. Patient is a 82-year-old male with a history of ischemic cardiomyopathy, history of quadruple bypass in the past History of AICD Hypertension , afib Diabetes Chronic kidney disease History of gout. History of dilated cardiomyopathy. Patient was started on hemodialysis because of the fluid overload worsening renal insufficiency Patient has a history of allergic to aspirin, latex, penicillin Home medications: uloric Colchicine Januvia Risperdal Isosorbide Colace Atorvastatin Xanax Coumadin Metoprolol Losartan And Lasix Social history patient used to be a smoker in the past. Denies any alcohol. Patient lives with the family. But for the last 2 months the patient is rehabilitation, receiving hemodialysis. On examination: Patient is alert and awake. He is comfortable. He is complaining of some pain in the lower back area. He has no other major active systemic symptoms except weakness, he is mostly bedridden at this time. He has is unstageable sacral decubiti also On examination: Vital signs otherwise stable. His blood pressure still on the low side. I discussed with the practice office associate about his overall condition. There is a hard time in removing enough fluid from his, during the dialysis because of the low blood pressure. He is also having significant problem in controlling the INR secondary to overall poor prognosis and also unable to keep the Coumadin level proper. I discussed with the patient family yesterday in detail. Family requested me for covering him as a PMD in the hospital. We will discuss with the metal buildings assembler about the alternative to Coumadin. He will be getting the hemodialysis today. Patient has a left shoulder pain. Possibly secondary to gout at this time. We will continue the current treatment. Will discuss with the family. And will follow the patient. Today INR level is subtherapeutic discussed with the cardiology regarding the anticoagulation of choice. Course in the hospital: I discussed with the practice office associate. Patient continues to receive hemodialysis. He was slowly improving. Patient needs assistance in sitting up. Also assistance in feeding. Because of the low platelets and hematology consultation was called, patient underwent a bone marrow biopsy, the results are currently pending. After discussion with the pipe blanks cut off saw operator, as well as metal buildings assembler it was decided that to discontinue Coumadin. We will start the patient on newer anticoagulation orally. We will start the patient on Eliquis 2.5 mg twice daily, we started the anticoagulation for the last 2 days, hemoglobin stable. Also platelet improved. Clinically patient is stable. His leg swelling and edema improved markedly. He will be discharged to rehab. Spoke to the patient's sister in detail. Patient will be followed up by Dr. Forrest. He will be continued to receive hemodialysis in the rehab. Medications reviewed, reconciliation was done. He will follow-up with his PMD after the discharge. Final diagnosis: Coumadin toxicity, coagulopathy, bleeding. End-stage renal disease on dialysis. Thrombocytopenia. Congestive heart failure systolic. Discharge Exam - Head Exam Head Exam: ATRAUMATIC, NORMAL INSPECTION, NORMOCEPHALIC Discharge Plan - Follow Up Plan Condition: FAIR Disposition: BUSINESS CENTER MANAGER FAC W/PLAN READMIS Instructions: Dialysis Diet , Heart Failure, Adult (DC), What to Do When Your INR Is Too High , Bleeding Precautions, End Stage Kidney Disease (DC), Normocytic Normochromic Anemia (DC) Additional Instructions: PLEASE ADMIT PATIENT UNDER DR. COHEN . M . SERVICE - PLEASE CALL DR. COHEN UPON PATIENT ARRIVAL TO THE FACILITY PLEASE CONTINUE HD MWF SCHEDULED PLEASE F/U WITH DR. CHANEY OFFICE ON THIS SUNDAY / SUNDAY - PLEASE ARRANGE TRANSPORTATION PLEASE CONTINUE ELIQUIS 2.5 MG BID PLEASE DO CBC Q 3 DAYS FOR [address] COHEN PLEASE CONTINUE MEDICATION PE RMED. REC. Referrals: Amee Sosa MD [Staff Provider] -
[2018-03-11 15:57] VITALS: PULSE 66; TEMP 97.8; O2SAT 100
[2018-03-11 17:30] VITALS: BP 129/51
== END 2018-03-11 18:55 | DRG 813 ==
LOC: C.ER 20:05 → C.9E 21:15 → C.6T 03-05 11:49
PROVIDERS: ADMIT Internal Medicine; ATTEND Internal Medicine
PROC: 30233K1 Transfusion of Nonautologous Frozen Plasma into Peripheral Vein, Percutaneous Approach (ICD-10-PCS; 2018-03-05)
PROC: 5A1D70Z Performance of Urinary Filtration, Intermittent, Less than 6 Hours Per Day (ICD-10-PCS; 2018-03-06)
PROC: 07DR3ZX Extraction of Iliac Bone Marrow, Percutaneous Approach, Diagnostic (ICD-10-PCS; principal; 2018-03-08)
PROC: 5A1D70Z Performance of Urinary Filtration, Intermittent, Less than 6 Hours Per Day (ICD-10-PCS; 2018-03-08)
PROC: 5A1D70Z Performance of Urinary Filtration, Intermittent, Less than 6 Hours Per Day (ICD-10-PCS; 2018-03-11)
DX: D68.9 Coagulation defect, unspecified (principal); D61.818 Other pancytopenia; R58 Hemorrhage, not elsewhere classified; N18.6 End stage renal disease; I13.2 Hypertensive heart and chronic kidney disease with heart failure and with stage 5 chronic kidney disease, or end stage renal disease; I50.22 Chronic systolic (congestive) heart failure; I42.0 Dilated cardiomyopathy; I48.92 Unspecified atrial flutter; E11.22 Type 2 diabetes mellitus with diabetic chronic kidney disease; E20.8 Other hypoparathyroidism; H40.9 Unspecified glaucoma; I25.10 Atherosclerotic heart disease of native coronary artery without angina pectoris; I25.5 Ischemic cardiomyopathy; I27.20 Pulmonary hypertension, unspecified; I48.91 Unspecified atrial fibrillation; I50.82 Biventricular heart failure; D63.1 Anemia in chronic kidney disease; D53.9 Nutritional anemia, unspecified; T45.515A Adverse effect of anticoagulants, initial encounter; M10.9 Gout, unspecified; M89.9 Disorder of bone, unspecified; M79.602 Pain in left arm; M25.519 Pain in unspecified shoulder; E78.00 Pure hypercholesterolemia, unspecified; Z79.01 Long term (current) use of anticoagulants; Z95.810 Presence of automatic (implantable) cardiac defibrillator; Z99.2 Dependence on renal dialysis; Z95.1 Presence of aortocoronary bypass graft; Z87.01 Personal history of pneumonia (recurrent); Z87.891 Personal history of nicotine dependence; Z88.6 Allergy status to analgesic agent; Z79.899 Other long term (current) drug therapy

== ENCOUNTER 2018-04-11 11:18 | Emergency (ER) | payer MEDICARE, OTHER ==
[2018-04-11 11:19] VITALS: PULSE 68; BMI 28.8
--- NOTE | 2018-04-11 11:28 | C.PDOC ---
History Of Present Illness 83 year old male presents to ED with complaint of new onset hematuria that began this morning. Patient is positive for clots and has questionable retention. Patient was admitted on 02/2018 s/p Coumadin toxicity. He states he is now on Eliquis. His last hemo-dialysis session was on 04/10. Patient denies fever and abdominal pain. NEW ONSET HEMATURIA THIS MORNING. +CLOTS, ?RETENTION. NO FEVER, ABD PAIN. ADMITTED 02/2018 S/P COUMADIN TOXICITY. PS NOW ON ELIQUIS. LAST HD 04/10 EXAM NEG elevated INR level and also bleeding. Patient is a 82-year-old male with a history of ischemic cardiomyopathy, history of quadruple bypass in the past History of AICD Hypertension , afib Diabetes Chronic kidney disease History of gout. History of dilated cardiomyopathy. Patient was started on hemodialysis because of the fluid overload worsening renal insufficiency He has no other major active systemic symptoms except weakness, he is mostly bedridden at this time. He has is unstageable sacral decubiti also He is also having significant problem in controlling the INR secondary to overall poor prognosis and also unable to keep the Coumadin level proper. Time Seen by Provider: 04/11/18 11:26 Chief Complaint (Nursing): Male Genitourinary History Per: Patient History/Exam Limitations: no limitations Onset/Duration Of Symptoms: Hrs Current Symptoms Are (Timing): Still Present Associated Symptoms: denies: Fever, Other (abdominal pain) Past Medical History Reviewed: Historical Data, Nursing Documentation, Vital Signs - Medical History PMH: Anxiety, Arthritis, Bronchitis, CAD, Cardia Arrhythmia (AFIB), CHF, Diabetes, Gall Bladder Disease (CHOLECYSTECTOMY), HTN, Hypercholesterolemia, Peripheral Edema (BLE), Pneumonia, Chronic Kidney Disease Denies: Depression Surgical History: CABG, Cholecystectomy (GB Sx: ? removal), Pacemaker (11/30/14) - [facility] Procedures (03/04/18) BED MOBILITY TREATMENT (06/03/16) DRESSING TECHNIQUES TREATMENT USING ASSIST EQUIPMENT (06/03/16) EXERCISE TREATMENT OF MUSCULOSK LOW BACK/LE USING OTH EQUIP (06/03/16) EXTRACTION OF ILIAC BONE MARROW, PERC APPROACH, DIAGN (03/04/18) FLUOROSCOPY OF LEFT HEART USING OTHER CONTRAST (05/29/16) FLUOROSCOPY OF MULTIPLE CORONARY ARTERIES USING OTH CONTRAST (05/29/16) GAIT TRAINING/AMBULAT TREATMENT USING ASSIST EQUIPMENT (10/15/17) GROOMING/PERSONAL HYGIENE TREATMENT USING ASSIST EQUIPMENT (06/03/16) HOME MANAGEMENT TREATMENT USING ASSIST EQUIPMENT (04/29/15) INCISION OF PENIS (07/19/14) INSERT INFUSION DEV IN R INT JUGULAR VEIN, PERC (01/13/18) INTRODUCE OF OTH THERAP SUBST INTO RESP TRACT, VIA OPENING (04/26/15) INTRODUCE OF OXAZOLIDINONES INTO PERIPH VEIN, PERC APPROACH (04/26/15) MEASURE OF CARDIAC SAMPL & PRESSURE, L HEART, PERC APPROACH (05/29/16) OCCUPATIONAL THERAPY (07/24/14) PHYSICAL THERAPY NEC (07/24/14) SERUM TRANSFUSION NEC (07/11/12) THERAPEUTIC EXERCISE TREATMENT OF MUSCULOSK WHOLE (10/15/17) TRANSFER TRAINING TREATMENT (06/03/16) TRANSFUSE NONAUT FROZEN PLASMA IN PERIPH VEIN, PERC (03/04/18) TRANSFUSE NONAUT PLATELETS IN PERIPH VEIN, PERC (02/13/18) ULTRASONOGRAPHY OF RIGHT JUGULAR VEINS, GUIDANCE (01/13/18) Family History: States: Unknown Family Hx - Social History Hx Tobacco Use: Yes (QUIT) Hx Alcohol Use: No Hx Substance Use: No - Immunization History Hx Tetanus Toxoid Vaccination: No Hx Influenza Vaccination: No Hx Pneumococcal Vaccination: No Review Of Systems Constitutional: Negative for: Fever, Chills, Weakness Cardiovascular: Negative for: Chest Pain, Palpitations Respiratory: Negative for: Cough, Shortness of Breath Gastrointestinal: Negative for: Nausea, Vomiting, Abdominal Pain Genitourinary: Positive for: Hematuria Neurological: Negative for: Weakness, Numbness, Dizziness Physical Exam - Physical Exam Appears: Well, Non-toxic, No Acute Distress Skin: Normal Color, Warm, Dry Head: Atraumatic, Normacephalic Neck: Normal ROM, Supple Chest: Symmetrical, No Deformity Cardiovascular: Rhythm Regular, No Murmur Respiratory: No Accessory Muscle Use, No Rales, No Rhonchi, No Wheezing Gastrointestinal/Abdominal: Soft, No Tenderness Extremity: Capillary Refill (<2 seconds) Extremity: Bilateral: Atraumatic, Normal Color And Temperature Pulses: Left Radial: Normal, Right Radial: Normal Neurological/Psych: Oriented x3, Normal Speech, Normal Cognition ED Course And Treatment - Laboratory Results Result Diagrams: 04/11/18 12:16 04/11/18 12:16 Progress Note: Labs ordered with UA for patient. Progress - Re-Evaluation Re-evaluation Note: 04/11/18 12:56 NO RECUR SX SINCE INITIAL EVAL D/W DR PITT AWARE OF ER FINDINGS, DC TO REHAB CONSULT DR Marvin MURILLO D/W DR Marvin MURILLO WILL CONSULT OUTPT - Data Reviewed Data Reviewed: Lab, Old records Disposition Counseled Patient/Family Regarding: Diagnosis - Disposition Disposition: HOME/ ROUTINE Disposition Time: 12:58 Condition: GOOD Instructions: Blood in the Urine (Hematuria), Adult (DC) Forms: [employer] (Slovenian) - Clinical Impression Clinical Impression: Hematuria - Scribe Statement The provider has reviewed the documentation as recorded by the Scribe (Jazmyn Huerta) All medical record entries made by the Scribe were at my direction and personally dictated by me. I have reviewed the chart and agree that the record accurately reflects my personal performance of the history, physical exam, medical decision making, and the department course for this patient. I have also personally directed, reviewed, and agree with the discharge instructions and di sposition.
[2018-04-11 12:31] LABS: BASO # 0.1 K/uL (0.0-0.2); BASO % 1.7 % (0.0-2.0); EOS # 0.2 K/uL (0.0-0.7); EOS % 4.8 % (0.0-4.0); HEMOGLOBIN 9.8 g/dL (12.0-18.0); LYMPH # 0.7 K/uL (1.0-4.3); LYMPH % 17.5 % (20.0-40.0); MEAN CELL VOLUME 106.3 fL (80.0-94.0); MEAN CORPUSCULAR HEMOGLOBIN 34.2 pg (27.0-31.0); MEAN CORPUSCULAR HGB CONC 32.2 g/dL (33.0-37.0); MEAN PLATELET VOLUME 8.8 fL (7.2-11.7); MONO # 0.9 K/uL (0.0-0.8); MONO % 23.4 % (0.0-10.0); NEUT % 52.6 % (50.0-75.0); NRBC % 0.1 % (0.0-2.0); RBC 2.86 Mil/uL (4.40-5.90); RED CELL DISTRIBUTION WIDTH 19.4 % (11.5-14.5); WHITE BLOOD COUNT 3.9 K/uL (4.8-10.8)
[2018-04-11 12:32] LABS: CALCIUM 8.7 mg/dl (8.6-10.4); PLATELET COUNT 54 K/uL (130-400)
[2018-04-11 12:56] LABS: BASOPHIL 2 % (0-2); EOSINOPHIL 5 % (0-4); TOTAL CELLS COUNTED 100
[2018-04-11 12:59] LABS: LYMPHOCYTE 16 % (20-40); MONOCYTE 25 % (0-10); NEUTROPHIL 52 % (50-75); PLATELET ESTIMATE DECREASED (NORMAL)
[2018-04-11 13:00] LABS: ANISOCYTOSIS MODERATE
[2018-04-11 14:36] VITALS: BP 114/50; PULSE 69; RESP 15; TEMP 97.8; O2SAT 98
== END 2018-04-11 16:56 | disposition home or self-care (01) ==
LOC: C.ER 11:18
DX: R31.9 Hematuria, unspecified (principal); E78.00 Pure hypercholesterolemia, unspecified; I48.91 Unspecified atrial fibrillation; I25.10 Atherosclerotic heart disease of native coronary artery without angina pectoris; N18.9 Chronic kidney disease, unspecified; I50.9 Heart failure, unspecified; I12.9 Hypertensive chronic kidney disease with stage 1 through stage 4 chronic kidney disease, or unspecified chronic kidney disease